=== PATIENT | female | born 1990 | race Caucasian/White ===

== ENCOUNTER 2017-09-11 10:42 | Emergency (ER) | payer OTHER, SELFPAY ==
[2017-09-11 11:03] VITALS: BP 111/75; PULSE 96; RESP 20; TEMP 37.2; O2SAT 20; BMI 25.0
[2017-09-11 11:13] VITALS: BP 126/73; PULSE 80; RESP 19; O2SAT 99
--- NOTE | 2017-09-11 11:14 | PC.NURSE ---
PT TO BE SEEN IN ER PER DOCTOR OF NURSE ANESTHESIA, REPORT TO November
[2017-09-11 11:24] LABS: Apearance,Urine Clear (Clear); Color,Urine Yellow (Yellow); Specific Gravity, Urine >= 1.030 (1.005-1.030)
[2017-09-11 11:25] LABS: Bilirubin,Urine Negative (Negative); Blood, Urine Trace (Negative); Glucose,Urine (UA) Negative (Negative); Ketones,Urine Negative (Negative); Protein,Urine Negative (Negative); UTC Leukocyte Esterase,Urine 1+ (Negative); UTC Nitrate,Urine Positive (Negative); Urobilinogen,Urine 0.2 EU/dl (0.2)
[2017-09-11 12:01] VITALS: BP 120/50; PULSE 73; RESP 14; TEMP 37.1; O2SAT 100; BMI 25.0
--- NOTE | 2017-09-11 12:07 | XR_ITS ---
XR chest 2V HISTORY: Chest pain ITS.REASON: pain ORDERING PHYSICIAN: Marcin Lepe MD PATIENT AGE: 27 years COMPARISON: None available FINDINGS: The cardiomediastinal silhouette and pulmonary vascularity are within normal limits. The lungs are clear without infiltrates, suspicious nodules, or pleural effusions. No acute bony abnormalities. IMPRESSION: Negative chest, no acute finding
--- NOTE | 2017-09-11 12:13 | HMH.EDGENADL ---
ED Disposition Clinical Impression: Abdominal pain, Mesenteric adenitis Disposition: Home, Self-Care Condition on Discharge: Good Instructions: Acute Abdominal Pain Referrals: Kinga Dudley APRN [Primary Care Provider] - - Critical Care Critical Care Time: No Attestation: On 09/11/17, the high probability of a clinically significant, sudden or life threatening deterioration of the following system(s) required my full and direct attention, intervention and personal management. The time I documented below is in addition to time spent performing reported procedures but includes the following listed in this critical care notation. Medical Decision Making - Medical Records MR Comment: chest x-ray per my read as no infiltrate no acute disease. Scan read by radiologist: IMPRESSION: No acute abdominal or pelvic findings. Small mesenteric lymph nodes present. These are nonspecific but could be seen. with mesenteric adenitis Vital Signs: 09/11/17 11:03 09/11/17 11:13 09/11/17 12:01 Temperature 98.9 F 98.7 F Temperature Source Temporal Artery Scan Oral Pulse Rate [Right] 96 H 80 73 Respiratory Rate 20 19 14 Blood Pressure [Right Arm] 111/75 126/73 120/50 Blood Pressure Mean [Right Arm] 87 90 73 Blood Pressure Source [Right Arm] Automatic Cuff Automatic Cuff Automatic Cuff Blood Pressure Position [Right Arm] Sitting Sitting Sitting 02 Sat by Pulse Oximetry 20 L 99 100 Oxygen Delivery Method Room Air Room Air Room Air - Lab Data Lab Results 09/11/17 11:00: WBC 9.8, RBC 5.13, Hgb 14.9, Hct 43.7, MCV 85.2, MCH 28.9, MCHC 34.0, RDW 12.5, Plt Count 177, MPV 8.8, Neut % (Auto) 72.4, Lymph % (Auto) 20.9, [place] % (Auto) 5.3, Eos % (Auto) 1.0, Baso % (Auto) 0.4, Neut # (Auto) 7.1, Lymph # (Auto) 2.1, [place] # (Auto) 0.5, Eos # (Auto) 0.1, Baso # (Auto) 0.0 09/11/17 11:00: Sodium 140, Potassium 3.6, Chloride 102, Carbon Dioxide 28, Anion Gap 13.6, BUN 7, Creatinine 0.84, Estimated Creat Clear 117, Estimated GFR 83, Est GFR ( Amer) 100, Glucose 85, Calcium 9.0, Total Bilirubin 0.5, AST 16, ALT 25, Alkaline Phosphatase 54, Total Protein 8.1, Albumin 4.2, Globulin 3.9 H, Albumin/Globulin Ratio 1.1, Lipase 95 09/11/17 11:00: Urine HCG, Qual Negative 09/11/17 11:22: Urine Color Yellow, Urine Appearance Clear, Urine pH 6.0, Ur Specific [place] >= 1.030, Urine Protein Negative, Urine Glucose (UA) Negative, Urine Ketones Negative, Urine Blood Trace, Urine Nitrate Positive A, Urine Bilirubin Negative, Urine Urobilinogen 0.2, Ur Leukocyte Esterase 1+ A Result diagrams: 09/11/17 11:00 09/11/17 11:00 Orders (Tests/Meds): ED MEDICATIONS Discontinued Medications Generic Name Dose Route Start Last Admin Trade Name Freq PRN Reason Stop Dose Admin Morphine Sulfate 4 mg 09/11/17 12:12 Morphine 4mg/Ml Syringe IV 09/11/17 12:13 ONCE ONE Ondansetron HCl 4 mg 09/11/17 12:12 Zofran 4mg/2ml Vial IV 09/11/17 12:13 ONCE ONE ORDERS Category Date Time Status XR chest 2V Stat Exams 09/11/17 12:07 Taken - Edwin Inquiry Pt receiving controlled substance: No General Adult HPI - General Chief complaint: Abdominal Pain Stated complaint: pain in upper abdominal area and pain in back Mode of Arrival: Ambulatory Limitations: No Limitations Description of Symptoms (Recalled from ER Triage Doc. by RN): Pt c/o abd pain since last night. Also c/o nausea/vomiting - History of Present Illness HPI narrative: Patient complains of onset last night of abdominal pain epigastric area that is since spread throughout her abdomen. She has not had a period in several months but that her tests have been negative. Having nausea vomiting crampy abdominal pain moderate severity it radiate through to her back. no Complaint of fevers or chills - Related Data Previous Rx's Medication Instructions Recorded Omeprazole Magnesium [Prilosec 10 mg PO DAILY #10 packet 09/11/17 10mg (gra
[2017-09-11 12:50] LABS: Basophils % 0.4 % (0.1-2.0); Eosinophils # 0.1 K/mm3 (0.0-0.4); Hematocrit 43.7 % (37.0-47.0); Hemoglobin 14.9 g/dL (12.2-16.2); Lymphocytes # 2.1 K/mm3 (0.7-4.5); Lymphocytes % 20.9 K/mm3 (10-50); Mean Corpuscular Hemoglobin 28.9 pg (27.0-31.2); Mean Corpuscular Volume 85.2 fl (81-99); Mean Platelet Volume 8.8 fl (7.4-10.4); Monocytes # 0.5 K/mm3 (0.1-1.0); Monocytes % 5.3 % (1.7-9.3); Neutrophils # 7.1 K/mm3 (1.8-7.8); Neutrophils % 72.4 % (37.0-80.0); Platelet Count 177 K/mm3 (142-424); Red Blood Count 5.13 M/mm3 (4.20-5.40); Red Cell Distribution Width 12.5 % (11.5-17.5); White Blood Count 9.8 K/mm3 (4.8-10.8)
[2017-09-11 13:06] LABS: Alanine Aminotransferase 25 U/L (12-78); Albumin Level 4.2 gm/dL (3.4-5.0); Albumin/Globulin Ratio 1.1 (1.1-1.8); Alkaline Phosphatase 54 U/L (46-116); Anion Gap 13.6 mEq/L (5-15); Aspartate Amino Transferase 16 U/L (15-37); Bilirubin,Total 0.5 mg/dL (0.2-1.0); Blood Urea Nitrogen 7 mg/dL (7-18); Carbon Dioxide 28 mmol/L (21.0-32.0); Chloride 102 mmol/L (98-107); Creatinine Clearance Estimated 117 mL/min (0-300); Creatinine,Serum 0.84 mg/dL (0.55-1.02); Estimated Glomerular Filt Rate 83 ml/min (>60); GFR (African American) 100 ML/MIN (>60); Globulin 3.9 gm/dl (1.3-3.2); Glucose 85 mg/dL (74-106); Lipase 95 u/L (73-393); Potassium 3.6 mmoL/L (3.5-5.1); Sodium 140 mmol/L (136-145); Total Protein,Serum 8.1 gm/dL (6.4-8.2)
[2017-09-11 13:07] LABS: Urine Pregnancy, HCG Qual. Negative (Negative)
--- NOTE | 2017-09-11 13:08 | CT_ITS ---
CT abdomen pelvis wo con CLINICAL INDICATION: Midepigastric abdominal pain ITS.REASON: ABD PAIN ORDERING PHYSICIAN: Marcin Lepe MD PATIENT AGE: 27 years COMPARISON: 07/21/2012 TECHNIQUE: Axial images obtained with sagittal and coronal reformats. PROCEDURE: Oral Contrast: None IV Contrast: None . FINDINGS: Lung bases are clear. The liver, spleen, adrenal glands, pancreas, and kidneys have an unremarkable unenhanced CT appearance. There has been a prior cholecystectomy without ductal dilatation. Unremarkable appendix. No evidence of diverticulitis, intestinal obstruction, or free air. No acute bony anomalies. There are few scattered small mesenteric lymph nodes which are nonspecific IMPRESSION: No acute abdominal or pelvic findings Small mesenteric lymph nodes present. These are nonspecific but could be seen with mesenteric adenitis
[2017-09-11 14:24] VITALS: BP 112/70; PULSE 60; RESP 14; TEMP 36.7; O2SAT 98
== END 2017-09-11 14:25 | disposition home or self-care (01) ==
LOC: UTC 11:02 → ER 11:16
PROVIDERS: Emergency Provider Emergency Medicine; Family Provider Nurse Practitioner Family; PCP Nurse Practitioner Family
DX: R10.9 Unspecified abdominal pain (principal); I88.0 Nonspecific mesenteric lymphadenitis; Z88.2 Allergy status to sulfonamides
CPT/HCPCS: 71046; 74176; 80053; 81003; 81025; 83690; 85025; 99284

== ENCOUNTER → 2017-12-11 12:49 | Outpatient (CLI) | payer OTHER, SELFPAY ==
[2017-12-11 13:36] LABS: Amphetamine/Metha Screen,Urine Negative ng/mL (<1000); Barbiturates Screen,Urine Negative ng/mL (<200); Benzodiazepines Screen,Urine Negative ng/mL (200); Cannabinoid Screen,Urine Negative ng/mL (<50); Cocaine Screen,Urine Negative ng/g (<300); Methadone Screen,Urine Negative ng/mL (<300); Opiate Screen,Urine Negative ng/mL (<300); Phencyclidine Screen,Urine Negative ng/mL (<25)
[2017-12-11 14:42] LABS: Thyroid Stimulating Hormone 2.84 uIU/ml (0.358-3.740)
== END ==
PROVIDERS: Visit Provider Nurse Practitioner Family
DX: E03.8 Other specified hypothyroidism (principal); F19.90 Other psychoactive substance use, unspecified, uncomplicated
CPT/HCPCS: 36415; 80305; 84439; 84443

== ENCOUNTER → 2018-10-06 15:46 | Outpatient (CLI) | payer OTHER, SELFPAY ==
[2018-10-08 09:18] LABS: Hep A Ab, IgM Negative (Negative); Hepatitis B Core Antibody IgM Negative (Negative); Hepatitis B Surface Antigen Negative (Negative)
[2018-10-08 10:54] LABS: HIV Screen 4th Generation wRfx Non Reactive (Non Reactive); HSV 1 IgG, Type Spec <0.91 index (0.00-0.90); HSV 2 IgG, Type Spec <0.91 index (0.00-0.90); Hepatitis C Antibody <0.1 s/co ratio (0.0-0.9); Rapid Plasma Reagin Ab Titer Non Reactive (NonRea<1:1)
== END ==
PROVIDERS: Visit Provider Nurse Practitioner Obstetrics & Gynecology
DX: Z72.51 High risk heterosexual behavior (principal)
CPT/HCPCS: 36415; 80074; 86592; 86695; 86703; 86790; G0432

== ENCOUNTER → 2019-01-31 16:57 | Outpatient (CLI) | payer OTHER, SELFPAY ==
[2019-02-03 07:47] LABS: Neisseria gonorrhoeae, NAA Negative (Negative)
== END ==
PROVIDERS: Visit Provider Nurse Practitioner Obstetrics & Gynecology
DX: Z72.51 High risk heterosexual behavior (principal)
CPT/HCPCS: 87491; 87591

== ENCOUNTER → 2019-03-02 14:33 | Outpatient (CLI) | payer OTHER, SELFPAY ==
[2019-03-04 10:32] LABS: HSV 2 IgG, Type Spec <0.91 index (0.00-0.90)
== END ==
PROVIDERS: Visit Provider Nurse Practitioner Obstetrics & Gynecology
DX: Z72.51 High risk heterosexual behavior (principal)
CPT/HCPCS: 36415; 86695; 86696; 86790

== ENCOUNTER → 2019-09-14 17:16 | Outpatient (CLI) | payer MEDICAID, SELFPAY | PROVIDERS: Visit Provider Nurse Practitioner Obstetrics & Gynecology | DX: Z34.90 Encounter for supervision of normal pregnancy, unspecified, unspecified trimester (principal) | CPT/HCPCS: 87086; 87088; 87186 ==

== ENCOUNTER → 2019-09-22 13:38 | Outpatient (CLI) | payer MEDICAID, SELFPAY ==
--- NOTE | 2019-09-22 13:39 | US_ITS ---
PROCEDURE: US OB <= 14 WEEKS FETUS CLINICAL INDICATION: uncertain dates COMPARISON: US TRANSVAGINAL from 08/07/2019 FINDINGS: An intrauterine gestational sac is present with a pole with a crown-rump length of 7.59cm correlating to gestational age of 13weeks 6days. heart tones are present with an FHR of 163bpm. The placenta is forming posteriorly. Cervix was closed IMPRESSION: Live IUP at 13 weeks 6 days. Estimated due date by Ultrasound is 03/23/2020 Dictated by: Bello Hendrickson MD 09/22/2019 15:24 Electronically signed by Bello Hendrickson MD in [place] 09/22/2019 15:24
== END ==
PROVIDERS: PCP Physician Assistant; Visit Provider Nurse Practitioner Obstetrics & Gynecology
DX: Z34.90 Encounter for supervision of normal pregnancy, unspecified, unspecified trimester (principal)
CPT/HCPCS: 76801

== ENCOUNTER → 2019-10-12 14:23 | Outpatient (CLI) | payer MEDICAID, SELFPAY ==
[2019-10-12 14:54] LABS: Basophils % 0.5 % (0.1-2.0); Eosinophils # 0.1 K/mm3 (0.0-0.4); Eosinophils % 1.2 % (0.1-12.0); Hematocrit 36.4 % (37.0-47.0); Hemoglobin 12.7 g/dL (12.2-16.2); Lymphocytes # 1.6 K/mm3 (0.7-4.5); Lymphocytes % 19.2 % (10-50); Mean Corpuscular Hemoglobin 29.9 pg (27.0-31.2); Mean Corpuscular Volume 85.4 fl (81-99); Mean Platelet Volume 8.5 fl (7.4-10.4); Monocytes # 0.3 K/mm3 (0.1-1.0); Monocytes % 3.9 % (1.7-9.3); Neutrophils % 75.2 % (37.0-80.0); Platelet Count 167 K/mm3 (142-424); Red Blood Count 4.26 M/mm3 (4.20-5.40); Red Cell Distribution Width 13.7 % (11.5-17.5)
[2019-10-14 10:15] LABS: HIV Screen 4th Generation wRfx Non Reactive (Non Reactive); Hepatitis B Surface Antigen Negative (Negative); Hepatitis C Antibody <0.1 s/co ratio (0.0-0.9); Rapid Plasma Reagin Ab Titer Non Reactive (NonRea<1:1); Rubella Antibodies, IgG <0.90 index (Immune >0.99)
[2019-10-15 01:07] LABS: AFP Value 28.5 ng/mL (.); DIA MoM 0.99 (.); DIA Value 148.17 pg/mL (.); DSR (Second Trimester) 1 IN 9695 (.); Gest. Age on Collection Date 16.7 WEEKS (.); Maternal Age At EDD 27.8 yr (.); OSBR Risk 1 IN 10000 (.); Results Report (.); hCG MoM 0.56 (.); hCG Value 18008 mIU/mL (.); uE3 Value 0.79 ng/mL (.)
[2019-10-15 08:31] LABS: Gestat. Age Based On EDD (.)
== END ==
PROVIDERS: Visit Provider Nurse Practitioner Obstetrics & Gynecology
DX: Z34.90 Encounter for supervision of normal pregnancy, unspecified, unspecified trimester (principal)
CPT/HCPCS: 36415; 82106; 85025; 86592; 86703; 86762; 86850; 87340; 87380; G0432

== ENCOUNTER → 2019-11-09 15:02 | Outpatient (CLI) | payer MEDICAID, SELFPAY ==
--- NOTE | 2019-11-09 15:05 | US_ITS ---
PROCEDURE: US OB /MATERNAL DETAIL CLINICAL INDICATION: 20 wk. The 20 week anatomy exam COMPARISON: US OB <= 14 WEEKS FETUS from 09/22/2019 FINDINGS: There is a single live fetus which is in breech presentation. heart and body motion noted. There is average appearing amount of amniotic fluid. Placenta is posterior. The cervix is closed and measures 4 cm transabdominal. Complete survey performed and was unremarkable on the submitted images as in PACS. No discrete anomalies identified on survey imaging by technologist. Active fetus. Three-vessel cord with satisfactory umbilical cord insertion. 4- chamber heart noted. Survey of brain & ventricles Unremarkable. Face and neck survey unremarkable. Diaphragm and chest views unremarkable. Abdomen: Both kidneys noted and unremarkable. Stomach noted and satisfactory. Spine: Survey of the spine satisfactory with no anomalies identified nor imaged. Both arms and legs noted. Amniotic Fluid: Adequate. Maternal adnexa: No significant findings. Measurements: Average ultrasound age 20weeks 1day. Gestational Age 20 weeks 5 days Estimated due date by ultrasound age 20 percent. Estimated weight 337g BPD = 20weeks OFD = 20 weeks 2 days HC = 19weeks 3days AC = 20weeks FL = 20weeks 5days Growth Percentile= 21Percent% Heart Rate = 143bpm Cerebellum = 20weeks Humerus = HC/AC is 1.14 CI is 0.78 FL/BPD is 0.74 FL/AC is 0.23 IMPRESSION: Live IUP at 20 weeks 1 day in breech presentation. All parameters correlate with no obvious anomalies. Please see above for detail Dictated by: Bello Hendrickson MD 11/09/2019 16:21 Electronically signed by Bello Hendrickson MD in [place] 11/09/2019 16:21
== END ==
PROVIDERS: PCP Physician Assistant; Visit Provider Nurse Practitioner Obstetrics & Gynecology
DX: Z34.90 Encounter for supervision of normal pregnancy, unspecified, unspecified trimester (principal)
CPT/HCPCS: 76811

== ENCOUNTER → 2019-11-14 16:01 | Outpatient (CLI) | payer MEDICAID, SELFPAY | PROVIDERS: Visit Provider Nurse Practitioner Obstetrics & Gynecology | DX: O23.40 Unspecified infection of urinary tract in pregnancy, unspecified trimester (principal); Z3A.21 21 weeks gestation of pregnancy | CPT/HCPCS: 87086; 87088; 87186 ==

== ENCOUNTER → 2019-12-06 09:20 | Outpatient (CLI) | payer MEDICAID, SELFPAY ==
--- NOTE | 2019-12-06 09:21 | CA_ITS ---
APPROVED REPORT Bilateral Lower Extremity Venous Study for DVT. 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 Vein Imaging CFV (R): compressive, spontaneous, phasic, augmentation SFJ (R): compressive, spontaneous, phasic, augmentation FEM (R): compressive, spontaneous, phasic, augmentation POP (R): compressive, spontaneous, phasic, augmentation DFV (R): compressive, spontaneous, phasic, augmentation PTV (R): compressive, spontaneous, phasic, augmentation GSV (R): compressive, spontaneous, phasic, augmentation SSV (R): Not Visualized Peroneals (R):compressive, spontaneous, phasic, augmentation GAS (R): compressive, spontaneous, phasic, augmentation CFV (L): compressive, spontaneous, phasic, augmentation SFJ (L): compressive, spontaneous, phasic, augmentation FEM (L): compressive, spontaneous, phasic, augmentation POP (L): compressive, spontaneous, phasic, augmentation DFV (L): compressive, spontaneous, phasic, augmentation PTV (L): compressive, spontaneous, phasic, augmentation GSV (L): compressive, spontaneous, phasic, augmentation SSV (L): Not Visualized Peroneals (L):compressive, spontaneous, phasic, augmentation GAS (L): compressive, spontaneous, phasic, augmentation Findings Negative for DVT/SVT bilateral LE venous doppler, fully compressible. No reflux Conclusion No evidence of DVT or superficial thrombophlebitis in the veins scanned of the right lower extremity. No evidence of DVT or superficial thrombophlebitis in the veins scanned of the left lower extremity. Electronically signed by : Bello Hendrickson MD 12/06/2019 19:05:39
== END ==
PROVIDERS: PCP Physician Assistant; Visit Provider Nurse Practitioner Obstetrics & Gynecology
DX: Z34.90 Encounter for supervision of normal pregnancy, unspecified, unspecified trimester (principal); Z86.718 Personal history of other venous thrombosis and embolism
CPT/HCPCS: 93970

== ENCOUNTER → 2019-12-16 09:35 | Outpatient (CLI) | payer MEDICAID, SELFPAY ==
[2019-12-16 09:49] LABS: Basophils % 0.3 % (0.1-2.0); Eosinophils # 0.1 K/mm3 (0.0-0.4); Eosinophils % 1.1 % (0.1-12.0); Hematocrit 35.7 % (37.0-47.0); Hemoglobin 12.5 g/dL (12.2-16.2); Lymphocytes # 1.8 K/mm3 (0.7-4.5); Lymphocytes % 17.5 % (10-50); Mean Corpuscular Volume 85.8 fl (81-99); Mean Platelet Volume 8.8 fl (7.4-10.4); Monocytes # 0.4 K/mm3 (0.1-1.0); Monocytes % 3.8 % (1.7-9.3); Neutrophils # 8.1 K/mm3 (1.8-7.8); Neutrophils % 77.3 % (37.0-80.0); Platelet Count 184 K/mm3 (142-424); Red Blood Count 4.16 M/mm3 (4.20-5.40); Red Cell Distribution Width 13.2 % (11.5-17.5); White Blood Count 10.5 K/mm3 (4.8-10.8)
== END ==
PROVIDERS: Visit Provider Nurse Practitioner Obstetrics & Gynecology
DX: Z34.90 Encounter for supervision of normal pregnancy, unspecified, unspecified trimester (principal)
CPT/HCPCS: 36415; 85025

== ENCOUNTER 2020-01-06 00:14 | Outpatient (CLI) | payer MEDICAID, SELFPAY ==
[2020-01-06 00:25] VITALS: BMI 32.3
[2020-01-06 00:38] VITALS: BP 103/61; PULSE 84; RESP 18; TEMP 37.1; O2SAT 97; BMI 32.3
[2020-01-06 01:04] LABS: Microscopic, Urine URINE MICROSCOPIC (MICROSCOPIC)
[2020-01-06 01:06] LABS: Appearance,Urine CLEAR (Clear); Bilirubin,Urine Negative (Negative); Blood, Urine Negative (Negative); Color,Urine YELLOW (Yellow); Glucose,Urine (UA) Negative (Negative); Ketones,Urine Negative (Negative); Leukocyte Esterase,Urine Negative (Negative); Nitrate,Urine Negative (Negative); Protein,Urine Negative (Negative); Urobilinogen,Urine 0.2 EU/dl (0.2)
[2020-01-06 01:21] LABS: Barbiturates Screen,Urine Negative ng/ml (<200); Benzodiazepines Screen,Urine Negative ng/ml (<200)
[2020-01-06 01:22] LABS: Amphetamine/Metha Screen,Urine Negative ng/ml (<1000)
[2020-01-06 01:23] LABS: Cannabinoid Screen,Urine Negative ng/ml (<50); Methadone Screen,Urine Negative ng/ml (<300)
[2020-01-06 01:24] LABS: Cocaine Screen,Urine Negative ng/ml (<300)
[2020-01-06 01:25] LABS: Opiate Screen,Urine Negative ng/ml (<300); Phencyclidine Screen,Urine Negative ng/ml (<25)
[2020-01-06 01:44] LABS: Bacteria,Urine 1+ /lpf; Squamous Epithelial Cell,Urine TNTC #/hpf (0-5)
== END 2020-01-06 01:40 | disposition home or self-care (01) ==
LOC: OBOUT 00:16 → OB 00:16
PROVIDERS: PCP Physician Assistant; Referring Provider Nurse Practitioner Obstetrics & Gynecology; Visit Provider Obstetrics & Gynecology
DX: O47.03 False labor before 37 completed weeks of gestation, third trimester (principal); Z3A.29 29 weeks gestation of pregnancy
CPT/HCPCS: 59025; 80305; 81001; G0463

== ENCOUNTER 2020-01-06 22:05 | Outpatient (CLI) | payer MEDICAID, SELFPAY ==
[2020-01-06 22:21] VITALS: BP 114/66; PULSE 76; RESP 18; TEMP 36.8; O2SAT 97; BMI 32.3
[2020-01-06 23:22] LABS: Fetal Membrane Rupture (Rapid) Negative (Negative)
[2020-01-06 23:47] LABS: Fetal Fibronectin (Rapid) Negative (Negative)
== END 2020-01-07 00:08 | disposition home or self-care (01) ==
LOC: OBOUT 22:06 → OB 22:08
PROVIDERS: PCP Physician Assistant; Visit Provider Nurse Practitioner Obstetrics & Gynecology
DX: O47.03 False labor before 37 completed weeks of gestation, third trimester (principal); Z3A.29 29 weeks gestation of pregnancy
CPT/HCPCS: 59025; 82731; 84112; 96365; 96372; G0463

== ENCOUNTER 2020-01-07 10:46 | Outpatient (CLI) | payer MEDICAID, SELFPAY ==
[2020-01-07 10:53] VITALS: BP 121/62; PULSE 67; RESP 18; TEMP 36.9; O2SAT 95; BMI 31.9
[2020-01-07 11:22] LABS: Microscopic, Urine URINE MICROSCOPIC (MICROSCOPIC)
[2020-01-07 11:26] LABS: Appearance,Urine CLEAR (Clear); Bilirubin,Urine Negative (Negative); Blood, Urine Negative (Negative); Color,Urine YELLOW (Yellow); Glucose,Urine (UA) Negative (Negative); Ketones,Urine Negative (Negative); Leukocyte Esterase,Urine Negative (Negative); Nitrate,Urine Negative (Negative); PH,Urine 6.5 (5.0-8.5); Protein,Urine Negative (Negative); Urobilinogen,Urine 0.2 EU/dl (0.2)
[2020-01-07 11:39] LABS: Barbiturates Screen,Urine Negative ng/ml (<200); Benzodiazepines Screen,Urine Negative ng/ml (<200)
[2020-01-07 11:40] LABS: Amphetamine/Metha Screen,Urine Negative ng/ml (<1000); Methadone Screen,Urine Negative ng/ml (<300)
[2020-01-07 11:41] LABS: Cannabinoid Screen,Urine Negative ng/ml (<50)
[2020-01-07 11:42] LABS: Cocaine Screen,Urine Negative ng/ml (<300); Opiate Screen,Urine Negative ng/ml (<300)
[2020-01-07 11:43] LABS: Phencyclidine Screen,Urine Negative ng/ml (<25)
[2020-01-07 11:56] LABS: Amorphous Sediment,Urine 1+ /lpf; WBC,Urine Occasional #/hpf (0-3)
== END 2020-01-07 13:00 | disposition home or self-care (01) ==
LOC: OBOUT 10:49 → OB 10:52
PROVIDERS: PCP Physician Assistant; Visit Provider Nurse Practitioner Obstetrics & Gynecology
DX: O26.893 Other specified pregnancy related conditions, third trimester (principal); Z3A.29 29 weeks gestation of pregnancy
CPT/HCPCS: 59025; 80305; 81001; 96365; 96372; G0463

== ENCOUNTER → 2020-01-30 15:37 | Outpatient (CLI) | payer MEDICAID, SELFPAY ==
[2020-01-30 16:36] LABS: Fetal Fibronectin (Rapid) Negative (Negative)
== END ==
PROVIDERS: Visit Provider Nurse Practitioner Obstetrics & Gynecology
DX: Z34.90 Encounter for supervision of normal pregnancy, unspecified, unspecified trimester (principal)
CPT/HCPCS: 82731

== ENCOUNTER 2020-01-31 17:49 | Outpatient (CLI) | payer MEDICAID, SELFPAY ==
[2020-01-31 18:04] VITALS: BMI 32.4
[2020-01-31 18:15] LABS: Microscopic, Urine URINE MICROSCOPIC (MICROSCOPIC)
[2020-01-31 18:21] VITALS: BP 113/61; PULSE 105; RESP 18; TEMP 36.8; O2SAT 98; BMI 32.4
[2020-01-31 18:53] LABS: Amphetamine/Metha Screen,Urine Negative ng/ml (<1000); Barbiturates Screen,Urine Negative ng/ml (<200)
[2020-01-31 18:54] LABS: Bacteria,Urine Trace /lpf; Benzodiazepines Screen,Urine Negative ng/ml (<200); WBC,Urine Occasional #/hpf (0-3)
[2020-01-31 18:55] LABS: Cannabinoid Screen,Urine Negative ng/ml (<50); Cocaine Screen,Urine Negative ng/ml (<300)
[2020-01-31 18:56] LABS: Methadone Screen,Urine Negative ng/ml (<300)
[2020-01-31 18:57] LABS: Appearance,Urine CLEAR (Clear); Bilirubin,Urine Negative (Negative); Blood, Urine 2+ (Negative); Color,Urine YELLOW (Yellow); Glucose,Urine (UA) Negative (Negative); Ketones,Urine Negative (Negative); Leukocyte Esterase,Urine 1+ (Negative); Nitrate,Urine Negative (Negative); Opiate Screen,Urine Negative ng/ml (<300); Phencyclidine Screen,Urine Negative ng/ml (<25); Protein,Urine Negative (Negative); Specific Gravity, Urine 1.025 (1.005-1.030); Urobilinogen,Urine 0.2 EU/dl (0.2)
== END 2020-01-31 20:06 | disposition home or self-care (01) ==
LOC: OBOUT 17:51 → OB 17:52
PROVIDERS: PCP Nurse Practitioner Obstetrics & Gynecology; Visit Provider Obstetrics & Gynecology
DX: O47.03 False labor before 37 completed weeks of gestation, third trimester (principal); O26.853 Spotting complicating pregnancy, third trimester; Z3A.32 32 weeks gestation of pregnancy
CPT/HCPCS: 59025; 80305; 81001; 87086; 96365; G0463

== ENCOUNTER 2020-02-04 17:39 | Outpatient (CLI) | payer MEDICAID, SELFPAY ==
[2020-02-04 17:57] VITALS: BMI 33.1
[2020-02-04 18:14] LABS: Microscopic, Urine URINE MICROSCOPIC (MICROSCOPIC)
[2020-02-04 18:15] VITALS: BP 112/68; PULSE 87; RESP 19; TEMP 36.9; O2SAT 98
[2020-02-04 18:17] LABS: Appearance,Urine SL CLOUDY (Clear); Bilirubin,Urine Negative (Negative); Blood, Urine Negative (Negative); Color,Urine YELLOW (Yellow); Glucose,Urine (UA) Negative (Negative); Ketones,Urine Negative (Negative); Leukocyte Esterase,Urine 1+ (Negative); Nitrate,Urine Negative (Negative); Protein,Urine TRACE (Negative); Specific Gravity, Urine 1.025 (1.005-1.030); Urobilinogen,Urine 0.2 EU/dl (0.2)
[2020-02-04 18:20] LABS: Amorphous Sediment,Urine Trace /lpf; Squamous Epithelial Cell,Urine 20-50 #/hpf (0-5)
[2020-02-04 18:27] LABS: Barbiturates Screen,Urine Negative ng/ml (<200)
[2020-02-04 18:28] LABS: Amphetamine/Metha Screen,Urine Negative ng/ml (<1000); Benzodiazepines Screen,Urine Negative ng/ml (<200)
[2020-02-04 18:29] VITALS: BMI 33.1
[2020-02-04 18:29] LABS: Cannabinoid Screen,Urine Negative ng/ml (<50)
[2020-02-04 18:30] LABS: Cocaine Screen,Urine Negative ng/ml (<300); Methadone Screen,Urine Negative ng/ml (<300)
[2020-02-04 18:31] LABS: Opiate Screen,Urine Negative ng/ml (<300)
[2020-02-04 18:32] LABS: Phencyclidine Screen,Urine Negative ng/ml (<25)
== END 2020-02-04 19:20 | disposition home or self-care (01) ==
LOC: OBOUT 17:40 → OB 17:40
PROVIDERS: Visit Provider Obstetrics & Gynecology
DX: O26.893 Other specified pregnancy related conditions, third trimester (principal); Z3A.33 33 weeks gestation of pregnancy; R42 Dizziness and giddiness
CPT/HCPCS: 59025; 80305; 81001; 87086; 96372; G0463

== ENCOUNTER 2020-02-12 18:13 | Outpatient (CLI) | payer MEDICAID, SELFPAY ==
[2020-02-12 18:34] VITALS: BP 116/64; PULSE 90; RESP 18; TEMP 36.7; O2SAT 100; BMI 33.1
[2020-02-12 18:43] LABS: Microscopic, Urine URINE MICROSCOPIC (MICROSCOPIC)
[2020-02-12 18:59] LABS: Appearance,Urine SL CLOUDY (Clear); Bilirubin,Urine Negative (Negative); Blood, Urine Negative (Negative); Color,Urine YELLOW (Yellow); Glucose,Urine (UA) Negative (Negative); Ketones,Urine Negative (Negative); Leukocyte Esterase,Urine TRACE (Negative); Nitrate,Urine Negative (Negative); Protein,Urine Negative (Negative); Specific Gravity, Urine 1.025 (1.005-1.030); Urobilinogen,Urine 0.2 EU/dl (0.2)
[2020-02-12 19:01] LABS: Squamous Epithelial Cell,Urine 20-50 #/hpf (0-5)
[2020-02-12 19:05] LABS: Barbiturates Screen,Urine Negative ng/ml (<200); Benzodiazepines Screen,Urine Negative ng/ml (<200)
[2020-02-12 19:06] LABS: Amphetamine/Metha Screen,Urine Negative ng/ml (<1000)
[2020-02-12 19:07] LABS: Cannabinoid Screen,Urine Negative ng/ml (<50); Cocaine Screen,Urine Negative ng/ml (<300)
[2020-02-12 19:08] LABS: Methadone Screen,Urine Negative ng/ml (<300)
[2020-02-12 19:09] LABS: Opiate Screen,Urine Negative ng/ml (<300); Phencyclidine Screen,Urine Negative ng/ml (<25)
== END 2020-02-12 19:45 | disposition home or self-care (01) ==
LOC: OBOUT 18:14 → OB 18:17
PROVIDERS: Obstetrics & Gynecology; PCP Physician Assistant; Visit Provider Nurse Practitioner Obstetrics & Gynecology
DX: O47.03 False labor before 37 completed weeks of gestation, third trimester (principal); M54.5 Low back pain; Z3A.34 34 weeks gestation of pregnancy
CPT/HCPCS: 59025; 80305; 81001; 96372

== ENCOUNTER → 2020-02-15 16:45 | Outpatient (CLI) | payer MEDICAID, SELFPAY ==
[2020-02-15 16:58] LABS: Basophils % 0.3 % (0.1-2.0); Eosinophils # 0.1 K/mm3 (0.0-0.4); Eosinophils % 0.8 % (0.1-12.0); Hematocrit 37.2 % (37.0-47.0); Hemoglobin 12.8 g/dL (12.2-16.2); Lymphocytes # 1.7 K/mm3 (0.7-4.5); Lymphocytes % 14.4 % (10-50); Mean Corpuscular HGB Conc 34.5 g/dL (31.8-35.4); Mean Corpuscular Hemoglobin 30.2 pg (27.0-31.2); Mean Corpuscular Volume 87.4 fl (81-99); Mean Platelet Volume 8.5 fl (7.4-10.4); Monocytes # 0.4 K/mm3 (0.1-1.0); Monocytes % 3.5 % (1.7-9.3); Neutrophils # 9.5 K/mm3 (1.8-7.8); Neutrophils % 80.9 % (37.0-80.0); Platelet Count 170 K/mm3 (142-424); Red Blood Count 4.26 M/mm3 (4.20-5.40); Red Cell Distribution Width 13.9 % (11.5-17.5); White Blood Count 11.7 K/mm3 (4.8-10.8)
== END ==
PROVIDERS: Visit Provider Nurse Practitioner Obstetrics & Gynecology
DX: Z34.90 Encounter for supervision of normal pregnancy, unspecified, unspecified trimester (principal); Z3A.34 34 weeks gestation of pregnancy
CPT/HCPCS: 36415; 85025

== ENCOUNTER 2020-02-26 10:00 | Outpatient (CLI) | payer MEDICAID, SELFPAY ==
[2020-02-26 10:11] VITALS: BMI 33.7
[2020-02-26 10:21] VITALS: BP 114/70; PULSE 87; RESP 17; TEMP 36.9; O2SAT 97; BMI 33.7
--- NOTE | 2020-02-26 10:29 | US_ITS ---
PROCEDURE: US OB BIOPHYSICAL PROFILE CLINICAL INDICATION: Vaginal bleeding Thirty-six week gestation, vaginal bleeding TECHNIQUE: FINDINGS: There is a single live fetus which is in cephalic presentation. heart body motion noted within FHR 165 beats per minute. The placenta is posterior and grade 1. No previa or abruption. Average ultrasound age is 34 weeks 3 days. BPD 34 weeks 1 day, HC 34 weeks 2 days, AC 34 weeks 3 days, FL 34 weeks 4 days. All parameters correlate. SD ratio is 2.8 with a resistive index of 0.64 Cervix is closed at 3 cm. [place] is normal at 15 cm. Biophysical profile is 8 of 8 IMPRESSION: Live IUP at 34 weeks 3 days as described above Dictated by: Bello Hendrickson MD 02/26/2020 12:52 Electronically signed by Bello Hendrickson MD in [place] 02/26/2020 12:52
[2020-02-26 12:15] LABS: Microscopic, Urine URINE MICROSCOPIC (MICROSCOPIC)
[2020-02-26 12:17] LABS: Appearance,Urine CLEAR (Clear); Bilirubin,Urine Negative (Negative); Blood, Urine 2+ (Negative); Color,Urine YELLOW (Yellow); Glucose,Urine (UA) Negative (Negative); Ketones,Urine Negative (Negative); Leukocyte Esterase,Urine 2+ (Negative); Nitrate,Urine Negative (Negative); Protein,Urine Negative (Negative); Specific Gravity, Urine 1.025 (1.005-1.030); Urobilinogen,Urine 0.2 EU/dl (0.2)
[2020-02-26 12:24] LABS: Bacteria,Urine 1+ /lpf; Squamous Epithelial Cell,Urine 20-50 #/hpf (0-5); WBC,Urine 20-50 #/hpf (0-3)
[2020-02-26 12:25] LABS: Amorphous Sediment,Urine 2+ /lpf
[2020-02-26 12:29] LABS: Benzodiazepines Screen,Urine Negative ng/ml (<200)
[2020-02-26 12:30] LABS: Amphetamine/Metha Screen,Urine Negative ng/ml (<1000); Barbiturates Screen,Urine Negative ng/ml (<200)
[2020-02-26 12:31] LABS: Cannabinoid Screen,Urine Negative ng/ml (<50)
[2020-02-26 12:32] LABS: Cocaine Screen,Urine Negative ng/ml (<300); Methadone Screen,Urine Negative ng/ml (<300)
[2020-02-26 12:33] LABS: Opiate Screen,Urine Negative ng/ml (<300); Phencyclidine Screen,Urine Negative ng/ml (<25)
[2020-02-26 13:06] VITALS: BP 115/60; PULSE 74; RESP 18; O2SAT 99
== END 2020-02-26 13:10 | disposition home or self-care (01) ==
LOC: OBOUT 10:02 → OB 10:02
PROVIDERS: PCP Physician Assistant; Referring Provider Nurse Practitioner Obstetrics & Gynecology; Visit Provider Obstetrics & Gynecology
DX: O47.03 False labor before 37 completed weeks of gestation, third trimester (principal); Z3A.36 36 weeks gestation of pregnancy
CPT/HCPCS: 59025; 76819; 80305; 81001; 87086; 96365; 96366; 96372; G0463

== ENCOUNTER 2020-02-27 21:14 | Inpatient (IN) | payer MEDICAID, SELFPAY ==
[2020-02-27 21:17] VITALS: BMI 34.1
[2020-02-27 21:46] LABS: Basophils % 0.2 % (0.1-2.0); Eosinophils # 0.1 K/mm3 (0.0-0.4); Eosinophils % 1.1 % (0.1-12.0); Hematocrit 35.6 % (37.0-47.0); Hemoglobin 12.4 g/dL (12.2-16.2); Lymphocytes # 1.7 K/mm3 (0.7-4.5); Lymphocytes % 14.3 % (10-50); Mean Corpuscular Hemoglobin 30.6 pg (27.0-31.2); Mean Corpuscular Volume 87.4 fl (81-99); Mean Platelet Volume 8.6 fl (7.4-10.4); Monocytes # 0.5 K/mm3 (0.1-1.0); Monocytes % 4.3 % (1.7-9.3); Neutrophils # 9.5 K/mm3 (1.8-7.8); Neutrophils % 80.2 % (37.0-80.0); Platelet Count 166 K/mm3 (142-424); Red Blood Count 4.07 M/mm3 (4.20-5.40); Red Cell Distribution Width 13.9 % (11.5-17.5); White Blood Count 11.8 K/mm3 (4.8-10.8)
[2020-02-27 22:00] LABS: Fetal Membrane Rupture (Rapid) Positive (Negative)
--- NOTE | 2020-02-27 22:07 | HMH.OBAPHP ---
OB - H&P: HPI Antepartum - History of Present Illness Chief complaint: Rupture of membranes at 36 weeks and 3 days History of present illness: She is a 29-year-old 2 para 1 who is 36 and 3 weeks gestational age. She stood up this evening and started leaking fluid. She was pouring out copious amounts of fluid. She came into labor and delivery and was having contractions every 3 to 4 minutes. She is 4 cm dilated 75% -3 with a floating head. Ultrasound confirmed a cephalic presentation. Her AmniSure was positive. - History of Present Criteria for establishing EDC:: LMP confirmed by 1st trimester US care: good care Ultrasounds: normal 1st trimester US, normal mid trimester US Obstetrical complications: labor Medical complications: other Narrative: She has been taking Lovenox throughout the because she has factor V Leiden and has had a previous history of DVT in . She takes Lovenox 40 mg daily. [facility] History I have reviewed the patient's past medical history: Yes Medical History: Reports:: Deep Vein Thrombosis *Have you ever received a pneumonia vaccine?: No *Have you received a flu vaccine this season?: No Other Medical History: Denies: Anemia Other Surgeries: Yes: No Previous Surgery. No: Amputation: No Fractures: No - *Social History Last grade of school completed: High school graduate Smoking Status: Never smoker Alcohol Intake: never Substance Use Type: denies use *Occupational Status:: employed *Travel in the last 8 weeks: None Family Hx:: No significant family history Review of Systems - Review of Systems Review of systems:: pertinent systems reviewed and negative unless documented below Meds Home Medications Medication Instructions Recorded Confirmed Type PNV 153-FA 400 mcg-om3 35 mg-dha 1 tab PO DAILY 09/14/19 02/15/20 History 25 mg-epa 5 mg-fish oil chew tablet Promethazine HCl 12.5 mg PO Q6HP PRN 11/01/19 02/15/20 History ferrous sulfate 325 mg (65 mg 325 mg PO DAILY #30 tab 11/09/19 02/15/20 Rx iron) tablet enoxaparin 40 mg/0.4 mL 40 mg SQ HS #4 ml 01/02/20 02/15/20 Rx subcutaneous syringe valacyclovir 500 mg tablet 500 mg PO DAILY #30 tab 01/02/20 02/15/20 Rx nifedipine 10 mg capsule PO 01/16/20 02/15/20 History Allergies Allergy/AdvReac Type Severity Reaction Status Date / Time Sulfa (Sulfonamide Allergy Mild Verified 02/15/20 15:41 Antibiotics) [SULFA (SULFONAMIDE ANTIBIOTICS)] OB - H&P: Exam - Constitutional no acute distress - Routine HEENT Exam Head: Present: normocephalic Eye: Present: EOMI, PERRL ENT: Present: mucous membranes moist - Routine Neck Exam Present: supple, full ROM - Routine Respiratory Exam Absent: accessory muscle use (good air entry bilaterally), respiratory distress, wheezes, crackles - Routine Cardiovascular Exam Present: RRR. Absent: murmur - Routine Abdominal Exam Present: soft, normoactive bowel sounds. Absent: tenderness, distended, guarding - Routine Rectal Exam Patient deferred: visual exam, digital exam - Routine Exam Patient deferred: external exam, groin exam, perineal exam - Routine Extremities Exam Present: full ROM. Absent: cyanosis, edema - Routine Skin Exam Present: intact. Absent: cyanosis - Routine Neurological Exam Present: alert, oriented X3 - Routine Psychiatric Exam Present: normal affect OB - Results - Labs Labs: Short CBC 02/27/20 Range/Units 21:30 WBC 11.8 H (4.8-10.8) K/mm3 Hgb 12.4 (12.2-16.2) g/dL Hct 35.6 L (37.0-47.0) % Plt Count 166 (142-424) K/mm3 OB - A/P Antepartum (1) History of DVT of lower extremity Current visit: Yes Status: Acute (2) premature rupture of membranes Current visit: Yes Status: Acute - Additional Plan Planning to breastfeed?: Yes Plan: expectant management Additional Information:: She has premature rupture of membran
[2020-02-27 22:17] LABS: Coronavirus 19 IgG Antibody Negative (Negative); Coronavirus 19 IgM Antibody Negative (Negative)
--- NOTE | 2020-02-27 22:46 | HMH.ANESCL ---
[facility] Anesthesia Checklist - Patient Identification Patient Identification: Arm Band - Structural Data Admitted From: Inpatient Planned Operative Procedure/s: labor epidural Consent for Planned Operative Procedure(s) Verified: Yes Verified Documents: Surgical Consent, History and Physical - NPO Status Verified Time NPO: 00:00 - Additional verifications Anesthesia Reactions: No - Airway Assessment C-Spine Mobility Assessed: Yes TMJ Mobility Assessed: Yes Dentition: Good Dentition - Neurological Assessment Level of Consciousness: Awake, Alert - Anesthesia Plan Anesthesia Risk discussed: Yes Anesthesia Plan: Verified ASA Class: II Anesthesia Type: Epidural [facility] History I have reviewed the patient's past medical history: Yes Medical History: Reports:: Deep Vein Thrombosis *Have you ever received a pneumonia vaccine?: No *Have you received a flu vaccine this season?: No Other Medical History: Reports: Other. Denies: Anemia Anesthesia experience/problems:: nac Other Surgeries: Yes: No Previous Surgery. No: Amputation: No Fractures: No - *Social History Last grade of school completed: High school graduate Smoking Status: Never smoker Alcohol Intake: never Substance Use Type: denies use *Occupational Status:: employed *Travel in the last 8 weeks: None Family Hx:: No significant family history
[2020-02-27 23:42] LABS: Microscopic, Urine URINE MICROSCOPIC (MICROSCOPIC)
[2020-02-27 23:47] LABS: Appearance,Urine CLEAR (Clear); Bilirubin,Urine Negative (Negative); Blood, Urine Negative (Negative); Color,Urine YELLOW (Yellow); Glucose,Urine (UA) Negative (Negative); Ketones,Urine Negative (Negative); Leukocyte Esterase,Urine Negative (Negative); Nitrate,Urine Negative (Negative); Protein,Urine Negative (Negative); Specific Gravity, Urine <= 1.005 (1.005-1.030); Urobilinogen,Urine 0.2 EU/dl (0.2)
[2020-02-27 23:59] LABS: Amphetamine/Metha Screen,Urine Negative ng/ml (<1000)
[2020-02-28] LABS: Barbiturates Screen,Urine Negative ng/ml (<200); Benzodiazepines Screen,Urine Negative ng/ml (<200)
[2020-02-28 00:01] LABS: Cannabinoid Screen,Urine Negative ng/ml (<50)
[2020-02-28 00:02] LABS: Cocaine Screen,Urine Negative ng/ml (<300); Methadone Screen,Urine Negative ng/ml (<300)
[2020-02-28 00:03] LABS: Opiate Screen,Urine Negative ng/ml (<300)
[2020-02-28 00:04] LABS: Phencyclidine Screen,Urine Negative ng/ml (<25)
[2020-02-28 01:07] LABS: WBC,Urine Occasional #/hpf (0-3)
[2020-02-28 01:08] LABS: Bacteria,Urine Trace /lpf; Squamous Epithelial Cell,Urine Occasional #/hpf (0-5)
[2020-02-28 01:31] VITALS: BP 106/58; PULSE 71; RESP 20; TEMP 37.3; O2SAT 98; BMI 34.1
--- NOTE | 2020-02-28 05:38 | HMH.LABNOT ---
Labor Note - Subjective: Date: 02/28/20 Time: 05:38 regular contraction - Objective: NST:: Reactive Contractions:: every 2-3 minutes Cervical Dilation:: 9-10 Effacement:: 100% Station: +2 Membranes: spontaneously ruptured - Fetus: Monitoring?: Yes monitoring type:: External - Assessment: Labor progressing?: Yes Cephalopelvic disproportion?: No Patient Problems: All Active Problems History of DVT of lower extremity (Acute) premature rupture of membranes (Acute) (Acute) Sarika-Cowan tear (Acute) Cystitis (Acute) Abdominal pain during (Acute) Viral infection (Acute) - Plan: Anesthesia for epidural?: Yes Continue to labor down?: Yes Plan for ?: No Continue to monitor?: Yes Start pushing?: Yes Continue pushing?: Yes
[2020-02-28 05:58] LABS: Cord Blood PH 7.42 (7.35-7.45)
--- NOTE | 2020-02-28 05:59 | HMH.DN ---
- Delivery Note Delivery Date:: 02/28/20 Delivery Time:: 05:42 Anesthesia Type: Epidural Was labor medically induced?: No Induction method: none Gestational age (weeks): 36 delivered prior to 39 weeks?: Yes Justification for early elective delivery:: Active Labor Infant Gender: Female at 1 minute: 7 at 5 minutes: 9 Delivery Procedure:: She is a 29-year-old 2 now para 1 who was 36 and 3 weeks gestational age. She ruptured her membranes at home. She subsequently was admitted overnight and under labor epidural progressed to full dilation. She delivered a liveborn female child at 5:42 AM on the morning of February 28, 2020. On deliver the head the anterior shoulder then delivered easily followed by the rest the infant's body atraumatically. The baby was vigorous and cried spontaneously. We allowed the cord to continue to pulsate for approximately 1 minute. The cord was then doubly clamped and cut and the was then handed off to the nurses who assigned Apgars of 7 at 1 minute and 9 at 5 minutes. We then obtained cord blood as well as cord pH. The pH was 7.42. She received IV oxytocin using gentle traction on the cord and countertraction on the fundus I was able to easily deliver the placenta intact at 5:54 AM. He had a normal three-vessel cord. There were no perineal or vaginal lacerations. She has a positive blood, she is rubella nonimmune and was group B streptococcus unknown. 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 She will be seen by pediatricians and likely transferred later this morning. She is otherwise stable. 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 Placental Delivery Description: Spontaneous
--- NOTE | 2020-02-28 08:52 | HMH.DCSUM ---
General - General Admission date:: 02/27/20 Discharge date: 02/28/20 HPI HPI: She is a 29-year-old 2 para 1 at 36 and 4 weeks gestational age. She came in in the evening prior to delivery with ruptured membranes. She was tisha regularly every 2 to 3 minutes. Hospital Course Hospital Course: She progressed under labor epidural to full dilation and delivered spontaneously a liveborn female child at 5:42 AM on the morning of February 28, 2020. The baby was a liveborn female child weighing 5 pounds 8 ounces with Apgars of 7 at 1 minute and 9 at 5 minutes. pH was 7.42. The baby is being discharged and transferred to [facility] since it has imperforate anus. Baby also was noted to have 6 fingers on her right hand and a vestigial tag on its left thumb. As result of the baby being transferred the mother will be discharged today as well. She is discharged home to follow-up with me in approximately 2 weeks time. She will continue with her vitamins and iron. She will receive MMR prior to discharge since she is rubella nonimmune. She is a positive. Her group B streptococcus status was unknown and she did receive IV antibiotics while in labor. Her condition on discharge is stable and improved. She was taking Lovenox 40 mg daily throughout her . She will go ahead and start that again tomorrow evening. Objective Vital signs: Temp Pulse Resp BP Pulse Ox 99.1 F 71 20 106/58 L 98 02/28/20 01:31 02/28/20 01:31 02/28/20 01:31 02/28/20 01:31 02/28/20 01:31 no acute distress - *Routine HEENT Exam Head: Present: normocephalic Eye: Present: EOMI, PERRL ENT: Present: mucous membranes moist Results Labs on day of discharge: Labs from last 24 hours 02/28/20 02/27/20 02/27/20 05:45 23:00 23:00 WBC RBC Hgb Hct MCV MCH MCHC RDW Plt Count MPV Neut % (Auto) Lymph % (Auto) [place] % (Auto) Eos % (Auto) Baso % (Auto) Neut # (Auto) Lymph # (Auto) [place] # (Auto) Eos # (Auto) Baso # (Auto) Cord ABG pH 7.42 Urine Color Yellow Urine Appearance Clear Urine pH 7.0 Ur Specific [place] <= 1.005 Urine Protein Negative Urine Glucose (UA) Negative Urine Ketones Negative Urine Blood Negative Urine Nitrate Negative Urine Bilirubin Negative Urine Urobilinogen 0.2 Ur Leukocyte Esterase Negative Urine WBC Occasional Ur Squamous Epith Cells Occasional Urine Bacteria Trace Membrane Rupture Urine Opiates Screen Negative Urine Methadone Screen Negative Ur Barbituates Screen Negative Ur Phencyclidine Scrn Negative Ur Amphetamines Screen Negative U Benzodiazepines Scrn Negative Urine Cocaine Screen Negative U Marijuana (THC) Screen Negative SARS-CoV-2 IgG Ab (Rapid) SARS-CoV-2 IgM Ab (Rapid) Blood Type Antibody Screen 02/27/20 02/27/20 02/27/20 21:30 21:30 21:30 WBC RBC Hgb Hct MCV MCH MCHC RDW Plt Count MPV Neut % (Auto) Lymph % (Auto) [place] % (Auto) Eos % (Auto) Baso % (Auto) Neut # (Auto) Lymph # (Auto) [place] # (Auto) Eos # (Auto) Baso # (Auto) Cord ABG pH Urine Color Urine Appearance Urine pH Ur Specific [place] Urine Protein Urine Glucose (UA) Urine Ketones Urine Blood Urine Nitrate Urine Bilirubin Urine Urobilinogen Ur Leukocyte Esterase Urine WBC Ur Squamous Epith Cells Urine Bacteria Membrane Rupture Positive A Urine Opiates Screen Urine Methadone Screen Ur Barbituates Screen Ur Phencyclidine Scrn Ur Amphetamines Screen U Benzodiazepines Scrn Urine Cocaine Screen U Marijuana (THC) Screen SARS-CoV-2 IgG Ab (Rapid) Negative SARS-CoV-2 IgM Ab (Rapid) Negative Blood Type A Positive Antibody Screen Negative 02/27/20 21:30 WBC 11.8 H
== END 2020-02-28 12:45 | disposition home or self-care (01) | DRG 806 ==
LOC: OBOUT 21:16 → OB 21:16
PROVIDERS: Admitting Provider Nurse Practitioner Obstetrics & Gynecology; PCP Physician Assistant; Visit Provider Nurse Practitioner Obstetrics & Gynecology
DX: O60.13X0 Preterm labor second trimester with preterm delivery third trimester, not applicable or unspecified (principal); Q87.89 Other specified congenital malformation syndromes, not elsewhere classified; Z37.0 Single live birth; Z3A.36 36 weeks gestation of pregnancy; Z79.01 Long term (current) use of anticoagulants; Z86.718 Personal history of other venous thrombosis and embolism; Z23 Encounter for immunization
CPT/HCPCS: 59409; 59025; 76819; 80305; 81001; 82800; 84112; 85025; 86328; 86850; 87086; 90707; 94761; 96365; 96366; 96372; G0463; J0290

== ENCOUNTER 2020-06-24 10:29 | Emergency (ER) | payer MEDICAID, SELFPAY ==
[2020-06-24 10:45] VITALS: BP 120/72; PULSE 74; RESP 16; TEMP 36.8; O2SAT 99; BMI 29.9
--- NOTE | 2020-06-24 11:23 | HMH.EDUTC ---
[facility] [place] Clinical Impression: Exposure to COVID-19 virus Disposition: Home, Self-Care Condition on Discharge: Good Instructions: Preventing the Spread of Coronavirus Discharge Instructions Additional Instructions: No sign of a bacterial infection. Likely viral. Viruses can take 7-14 days to run their course. Nasal saline and bulb syringe or nose Yaz to remove nasal drainage to help with nasal congestion. Hard to eat, drink, sleep with nasal congestion so important to keep this cleaned out. Monitor temp. Tylenol or Motrin as needed for pain or fever Encourage fluids, water, Gatorade, Powerade, Pedialyte if /toddler/child Warm salt water gargles Warm fluids Sore throat lozenges Sleep elevated Humidifier/vaporizer Your covid swab was sent for testing. These results are typically sent to the primary care. Be sure you follow-up in 2-3 days if no improvement so we can review the results and treat if necessary. self isolate for 10 days and call health dept about isolating Follow-up immediately for new or worsening symptoms or no noticeable improvement over the next 48-72 hours. Referrals: Porsha Mullins PA [Primary Care Provider] - Time of Disposition: 11:33 Medical Decision Making - Edwin Inquiry Pt receiving controlled substance: No Vital Signs: 06/24/20 10:45 Temperature 98.2 F Temperature Source Oral Pulse Rate [Right Brachial] 74 Respiratory Rate 16 Blood Pressure [Right Arm] 120/72 Blood Pressure Mean [Right Arm] 88 Blood Pressure Source [Right Arm] Automatic Cuff Blood Pressure Position [Right Arm] Sitting 02 Sat by Pulse Oximetry 99 Oxygen Delivery Method Room Air Orders (Tests/Meds): ORDERS Category Date Time Status Covid-19 Nasal PCR ([facility]) Routine Lab 06/24/20 10:45 Received [facility] [place] HPI - General Chief complaint: Urgent Treatment Center Stated complaint: covid test Time Seen by Provider: 06/24/20 11:23 Mode of Arrival: Ambulatory Source of Information: Patient Limitations: No Limitations Description of Symptoms (Recalled from Triage Doc. by RN): PATIENT REQUESTING COVID TEST D/T EXPOSURE YESTERDAY; DENIES SYMPTOMS HEENT Symptoms (Recalled from RN notes): No Resp Symptoms (Recalled from RN notes): No Skin Symptoms (Recalled from RN notes): No MS Symptoms (Recalled from RN notes): No Functional Status (Recalled from RN notes): WNL - History of Present Illness Provider Complaint: 30 yr old female presents for covid testing. pt states she was at a wedding yesterday and the lady sitting next to her tested positive for covid. pt states she was sitting at the table and at times pt did not have mask on. - Related Data Home Medications Medication Instructions Recorded Confirmed Valacyclovir HCl [Valacyclovir] 500 mg PO DAILY 02/28/20 05/16/20 Allergies Allergy/AdvReac Type Severity Reaction Status Date / Time Sulfa (Sulfonamide Allergy Mild Verified 05/16/20 16:00 Antibiotics) [SULFA (SULFONAMIDE ANTIBIOTICS)] - Worker's Comp Is this a Worker's Comp case?: No [facility] History - Hepatitis A Screen Drug use history?: No High risk sexual behaviors?: No History of sexually transmitted infection?: No Currently employed?: No Childcare worker?: No Do you have indoor plumbing?: Yes Do you have electricity?: Yes Attestation statement:: This patient has been screened for Hepatitis A risk factors. I have reviewed the patient's past medical history: Yes Medical History: Reports:: Deep Vein Thrombosis Other Medical History: Reports: Other. Denies: Anemia Other Surgeries: Yes: No Previous Surgery. No: Amputation: No Fractures: No - Social History Smoking Status: Never smoker Alcohol Intake: never Substance Use Type: denies use Occupational Status: other Family Hx:: No significant family history ROS Obtained: Yes Systems reviewed as appropriate & no additional complaints - Constitutional Constitutional: Reports system rev
[2020-06-24 11:47] VITALS: BP 120/72; PULSE 74; RESP 16; TEMP 36.8; O2SAT 99
--- NOTE | 2020-06-24 17:34 | PC.NURSE ---
patient notified of negative covid test results
== END 2020-06-24 11:49 | disposition home or self-care (01) ==
PROVIDERS: Emergency Provider Nurse Practitioner Family; PCP Physician Assistant
DX: Z20.828 Contact with and (suspected) exposure to other viral communicable diseases (principal); Z86.718 Personal history of other venous thrombosis and embolism
CPT/HCPCS: 99201; U0003

== ENCOUNTER 2020-09-21 12:15 | Emergency (ER) | payer MEDICAID, SELFPAY ==
[2020-09-21 12:17] VITALS: BP 132/60; PULSE 78; RESP 20; TEMP 37; O2SAT 100; BMI 33.1
--- NOTE | 2020-09-21 12:30 | CT_ITS ---
PROCEDURE: CT ABDOMEN PELVIS W CON CLINICAL INDICATION: pain, bleeding Bright red blood in stools COMPARISON: CT ABDPELO CT abdomen pelvis wo con from 09/11/2017 TECHNIQUE: IV Contrast: 75ML Isovue 370 Oral Contrast None Axial images obtained with sagittal and coronal reformats. All CT scans at the facility use one or more dose reduction, viz: automated exposure control, ma/kV adjustment per patient size (including targeted exams where dose is matched to indication, i.e. head), or iterative reconstruction technique. FINDINGS: LOWER THORAX: No acute finding ABDOMEN & PELVIS: The liver, spleen, adrenal glands, and pancreas have an unremarkable appearance. There has been a prior cholecystectomy. No renal or ureteral calculi. There is a retro aortic left renal vein. No intestinal obstruction or free air. No evidence of appendicitis. No diffuse colon wall thickening. No evidence of diverticulitis the fundus of the uterus is somewhat irregular in contour nonspecific. There is a small amount fluid in the pelvis. No acute bony findings. IMPRESSION: No acute finding. Dictated by: Bello Hendrickson MD 09/21/2020 13:30 Bello Hendrickson MD in [place] 09/21/2020 13:30
--- NOTE | 2020-09-21 12:47 | HMH.EDGENADL ---
ED Disposition Clinical Impression: Blood in stool Abdominal pain Qualifiers: Abdominal location: generalized Qualified Code(s): R10.84 - Generalized abdominal pain Disposition: Left Against Medical Advice Condition on Discharge: Undetermined Referrals: Porsha Mullins PA [Primary Care Provider] - - Critical Care Critical Care Time: No Attestation: On 09/21/20, the high probability of a clinically significant, sudden or life threatening deterioration of the following system(s) required my full and direct attention, intervention and personal management. The time I documented below is in addition to time spent performing reported procedures but includes the following listed in this critical care notation. Medical Decision Making - Medical Records Medical records reviewed: Yes: I reviewed the patient's medical records. - Edwin Inquiry Pt receiving controlled substance: No Vital Signs: 09/21/20 12:17 Temperature 98.6 F Temperature Source Oral Pulse Rate [Left Radial] 78 Respiratory Rate 20 Blood Pressure [Right Arm] 132/60 Blood Pressure Mean [Right Arm] 84 Blood Pressure Source [Right Arm] Automatic Cuff Blood Pressure Position [Right Arm] Sitting 02 Sat by Pulse Oximetry 100 Oxygen Delivery Method Room Air - Lab Data Lab Results 09/21/20 12:15: Urine Color Yellow, Urine Appearance Clear, Urine pH 7.0, Ur Specific Cable 1.025, Urine Protein Negative, Urine Glucose (UA) Negative, Urine Ketones Negative, Urine Blood Negative, Urine Nitrate Negative, Urine Bilirubin Negative, Urine Urobilinogen 0.2, Ur Leukocyte Esterase Negative, Urine RBC None, Urine WBC None, Ur Squamous Epith Cells 10-20, Amorphous Sediment 1+, Urine Bacteria None 09/21/20 12:15: Urine HCG, Qual Negative 09/21/20 12:40: WBC 6.8, RBC 5.07, Hgb 13.7, Hct 42.5, MCV 83.9, MCH 27.1, MCHC 32.3, RDW 13.6, Plt Count 191, MPV 9.2, Neut % (Auto) 67.2, Lymph % (Auto) 25.5, [place] % (Auto) 4.7, Eos % (Auto) 1.8, Baso % (Auto) 0.7, Neut # (Auto) 4.6, Lymph # (Auto) 1.7, [place] # (Auto) 0.3, Eos # (Auto) 0.1, Baso # (Auto) 0.1 09/21/20 12:40: Sodium 142, Potassium 4.1, Chloride 107, Carbon Dioxide 28, Anion Gap 11.1, BUN 11, Creatinine 0.80, Estimated Creat Clear 149, Estimated GFR 85, Est GFR ( Amer) 103, Glucose 74, Calcium 9.4, Total Bilirubin 0.3, AST 26, ALT 16, Alkaline Phosphatase 66, Total Protein 8.1, Albumin 4.6, Globulin 3.5 H, Albumin/Globulin Ratio 1.3, Lipase 48 Result diagrams: 09/21/20 12:40 09/21/20 12:40 Orders (Tests/Meds): ED MEDICATIONS Discontinued Medications Generic Name Dose Route Start Last Admin Trade Name Freq PRN Reason Stop Dose Admin Iopamidol 75 ml 09/21/20 13:09 09/21/20 13:10 Iopamidol-370 (76%);100ml Bottle IV 09/21/20 13:10 75 ml ONCE ONE Administration Sodium Chloride 10 ml 09/21/20 13:09 09/21/20 13:10 Sodium Chloride 0.9% 10ml Syr (Rad Only) IV 09/21/20 13:10 10 ml ONCE ONE Administration - CT Data CT Scan: Abdomen, Pelvis Time Received: 14:[address] Reviewed: Yes: I have reviewed the patient's CT results, I have viewed the radiologist's interpretation Findings Narrative: IMPRESSION: No acute finding. - Reevaluation(s) Time: 14:05 Reevaluation #1: Upon getting the patient seen she findings, I did go to reevaluate and discussed with her. I was notified by nursing staff that the patient left without completing treatment. She did not receive the follow-up information or notifications of her work-up. Medical Decision Narrative: 30-year-old female presented to the emergency department with abdominal cramping and blood in the stools. Findings are consistent with colitis. Patient's abdominal exam is nonacute and rather benign. Work-up initiated. General Adult HPI - General Chief complaint: PAIN Stated complaint: bleeding in skull Time Seen by Provider: 09/21/20 12:20 Mode of Arrival: Ambulatory Limitations: No Limitations Description of Sympto
[2020-09-21 12:49] LABS: Microscopic, Urine URINE MICROSCOPIC (MICROSCOPIC)
[2020-09-21 12:54] LABS: Appearance,Urine CLEAR (Clear); Bilirubin,Urine Negative (Negative); Blood, Urine Negative (Negative); Color,Urine YELLOW (Yellow); Glucose,Urine (UA) Negative (Negative); Ketones,Urine Negative (Negative); Leukocyte Esterase,Urine Negative (Negative); Nitrate,Urine Negative (Negative); Protein,Urine Negative (Negative); Specific Gravity, Urine 1.025 (1.005-1.030); Urobilinogen,Urine 0.2 EU/dl (0.2)
[2020-09-21 12:55] LABS: Basophils # 0.1 K/mm3 (0-0.2); Basophils % 0.7 % (0.1-2.0); Eosinophils # 0.1 K/mm3 (0.0-0.4); Eosinophils % 1.8 % (0.1-12.0); Hematocrit 42.5 % (37.0-47.0); Hemoglobin 13.7 g/dL (12.2-16.2); Lymphocytes # 1.7 K/mm3 (0.7-4.5); Lymphocytes % 25.5 % (10-50); Mean Corpuscular HGB Conc 32.3 g/dL (31.8-35.4); Mean Corpuscular Hemoglobin 27.1 pg (27.0-31.2); Mean Corpuscular Volume 83.9 fl (81-99); Mean Platelet Volume 9.2 fl (7.4-10.4); Monocytes # 0.3 K/mm3 (0.1-1.0); Monocytes % 4.7 % (1.7-9.3); Neutrophils # 4.6 K/mm3 (1.8-7.8); Neutrophils % 67.2 % (37.0-80.0); Platelet Count 191 K/mm3 (142-424); Red Blood Count 5.07 M/mm3 (4.20-5.40); Red Cell Distribution Width 13.6 % (11.5-17.5); White Blood Count 6.8 K/mm3 (4.8-10.8)
[2020-09-21 12:56] LABS: Urine Pregnancy, HCG Qual. Negative (Negative)
[2020-09-21 13:00] LABS: Alanine Aminotransferase 16 U/L (12-78); Albumin Level 4.6 g/dl (3.5-5.0); Albumin/Globulin Ratio 1.3 (1.1-1.8); Alkaline Phosphatase 66 U/L (38-126); Anion Gap 11.1 mEq/L (5-15); Aspartate Amino Transferase 26 U/L (14-36); Bilirubin,Total 0.3 mg/dl (0.2-1.3); Blood Urea Nitrogen 11 mg/dl (7-17); Calcium 9.4 mg/dl (8.4-10.2); Carbon Dioxide 28 mmol/L (22.0-30.0); Chloride 107 mmol/L (98-107); Creatinine Clearance Estimated 149 mL/min (50-200); Estimated Glomerular Filt Rate 85 ml/min (>60); GFR (African American) 103 ML/MIN (>60); Globulin 3.5 g/dL (1.3-3.2); Glucose 74 mg/dl (74-100); Lipase 48 U/L (23-300); Potassium 4.1 mmoL/L (3.5-5.1); Sodium 142 mmol/L (136-145); Total Protein,Serum 8.1 g/dl (6.3-8.2)
[2020-09-21 13:03] LABS: Amorphous Sediment,Urine 1+ /lpf
[2020-09-21 13:30] VITALS: BP 132/60; PULSE 78; RESP 20; TEMP 37; O2SAT 100
--- NOTE | 2020-09-21 14:08 | PC.NURSE ---
Pt states that she felt a staff member was rude when educating her on the rules on children being in the ER. A nurse had told the pt that her 6 month old child could be in the ER room with the mother after nurse thought that child was with sister in the waiting room. When the child got to the room more than 30 minutes later and was educated by other staff member that it would be better that child was outside with other adult, pt got upset and stated that she would just have her test sent to her pcp. That she felt like she was being told she was a bad mother by bringing her child in the ER room. Talked with pt I understood her feelings and that Im sure that was not the intention it was more to keep the baby safe and that her test results would be back soon if she would wait a little longer. Pt was crying and wanted to just go and fu with her pcp.
== END 2020-09-21 13:31 | disposition left against medical advice (07) ==
PROVIDERS: Emergency Provider Emergency Medicine; PCP Physician Assistant
DX: R10.84 Generalized abdominal pain (principal); K92.1 Melena; Z86.718 Personal history of other venous thrombosis and embolism; Z88.2 Allergy status to sulfonamides
CPT/HCPCS: 74177; 80053; 81001; 81025; 83690; 85025; 99283; Q9967

== ENCOUNTER → 2020-10-16 11:28 | Outpatient (CLI) | payer MEDICAID, SELFPAY ==
--- NOTE | 2020-10-16 11:30 | CA_ITS ---
APPROVED REPORT Bilateral Lower Extremity Venous Study for DVT. School Standards Coach: Susu Khan RVT Indications Lower Extremity Pain: Bilateral BLE PAIN Risk Factors Prior Phlebitis/DVT Vein Imaging CFV (R): compressive, spontaneous, phasic, augmentation FEM (R): compressive, spontaneous, phasic, augmentation POP (R): compressive, spontaneous, phasic, augmentation PTV (R): Compressible GSV (R): Compressible Peroneals (R):Compressible GAS (R): Compressible CFV (L): compressive, spontaneous, phasic, augmentation FEM (L): compressive, spontaneous, phasic, augmentation POP (L): compressive, spontaneous, phasic, augmentation PTV (L): Compressible GSV (L): Compressible Peroneals (L):Compressible GAS (L): Compressible Findings Study suggests no evidence of DVT of the bilateral lower extremities. Study suggests no evidence of SVT of the bilateral lower extremities. Conclusion Study suggests no evidence of DVT of the bilateral lower extremities. Study suggests no evidence of SVT of the bilateral lower extremities. Electronically signed by : Bello Hendrickson MD 10/16/2020 18:26:20
== END ==
PROVIDERS: PCP Nurse Practitioner Family; Visit Provider Nurse Practitioner Family
DX: M79.604 Pain in right leg (principal); M79.605 Pain in left leg; N39.0 Urinary tract infection, site not specified
CPT/HCPCS: 87086; 87088; 87186; 93970

== ENCOUNTER 2020-12-31 13:38 | Emergency (ER) | payer MEDICAID, SELFPAY ==
[2020-12-31 13:40] VITALS: BP 121/56; PULSE 86; RESP 16; TEMP 36.9; O2SAT 99; BMI 28.3
[2020-12-31 14:02] LABS: Microscopic, Urine URINE MICROSCOPIC (MICROSCOPIC)
[2020-12-31 14:06] LABS: Appearance,Urine CLEAR (Clear); Bilirubin,Urine Negative (Negative); Blood, Urine Negative (Negative); Color,Urine YELLOW (Yellow); Glucose,Urine (UA) Negative (Negative); Ketones,Urine Negative (Negative); Leukocyte Esterase,Urine TRACE (Negative); Nitrate,Urine Negative (Negative); Protein,Urine Negative (Negative); Specific Gravity, Urine 1.025 (1.005-1.030); Urine Pregnancy, HCG Qual. Positive (Negative); Urobilinogen,Urine 0.2 EU/dl (0.2)
[2020-12-31 14:21] LABS: RBC,Urine Occasional #/hpf (0-3); Squamous Epithelial Cell,Urine 20-50 #/hpf (0-5)
[2020-12-31 14:22] LABS: Bacteria,Urine 3+ /lpf
[2020-12-31 14:43] VITALS: BP 111/54; PULSE 81; O2SAT 100
[2020-12-31 14:43] LABS: Chloride 106 mmol/L (98-107); HCG Qualitative, Serum Positive (Negative)
[2020-12-31 14:44] LABS: Potassium 3.9 mmoL/L (3.5-5.1); Sodium 139 mmol/L (136-145)
--- NOTE | 2020-12-31 14:44 | HMH.EDGENADL ---
ED Disposition Clinical Impression: Abnormal in first trimester Disposition: Home, Self-Care Condition on Discharge: Good Instructions: Threatened Miscarriage, DI for Threatened Additional Instructions: You have been evaluated for nausea, dehydration. Please follow-up with Dr. Mattson within 24 to 48 hours for repeat beta hCG. Take Zofran for nausea. Follow bland diet. Return to the emergency department for any new or worsening symptoms. Prescriptions: Ondansetron [Zofran 4mg ODT] 4 mg PO Q6 PRN #12 tab PRN Reason: Vomiting Transmission Status: Received by [facility] #[id number] Referrals: Porsha Mullins PA [Primary Care Provider] - Time of Disposition: 16:12 - Critical Care Critical Care Time: No Attestation: On 12/31/20, the high probability of a clinically significant, sudden or life threatening deterioration of the following system(s) required my full and direct attention, intervention and personal management. The time I documented below is in addition to time spent performing reported procedures but includes the following listed in this critical care notation. Medical Decision Making - Medical Records Medical records reviewed: Yes: I reviewed the patient's medical records. - Edwin Inquiry Pt receiving controlled substance: No Vital Signs: 12/31/20 13:40 12/31/20 14:43 12/31/20 16:53 Temperature 98.4 F 98.4 F Temperature Source Oral Oral Pulse Rate 81 79 Pulse Rate [Right Radial] 86 Respiratory Rate 16 18 Blood Pressure 111/54 L 117/68 Blood Pressure [Right Arm] 121/56 L Blood Pressure Mean [Right Arm] 77 Blood Pressure Source Automatic Cuff Blood Pressure Source [Right Arm] Automatic Cuff Blood Pressure Position [Right Arm] Sitting 02 Sat by Pulse Oximetry 99 100 Oxygen Delivery Method Room Air Room Air - Lab Data Lab Results 12/31/20 13:41: Urine Color Yellow, Urine Appearance Clear, Urine pH 6.0, Ur Specific Sulphur 1.025, Urine Protein Negative, Urine Glucose (UA) Negative, Urine Ketones Negative, Urine Blood Negative, Urine Nitrate Negative, Urine Bilirubin Negative, Urine Urobilinogen 0.2, Ur Leukocyte Esterase Trace, Urine RBC Occasional, Urine WBC 5-10, Ur Squamous Epith Cells 20-50, Urine Bacteria 3+ 12/31/20 13:41: Urine HCG, Qual Positive 12/31/20 14:05: WBC 8.7, RBC 4.75, Hgb 13.5, Hct 39.7, MCV 83.5, MCH 28.4, MCHC 34.0, RDW 13.7, Plt Count 226, MPV 8.8, Neut % (Auto) 69.6, Lymph % (Auto) 23.9, [place] % (Auto) 4.3, Eos % (Auto) 1.6, Baso % (Auto) 0.7, Neut # (Auto) 6.1, Lymph # (Auto) 2.1, [place] # (Auto) 0.4, Eos # (Auto) 0.1, Baso # (Auto) 0.1 12/31/20 14:05: Sodium 139, Potassium 3.9, Chloride 106, Carbon Dioxide 26, Anion Gap 10.9, BUN 8, Creatinine 0.70, Estimated Creat Clear 146, Estimated GFR 100, Est GFR ( Amer) 121, Glucose 102 H, Calcium 9.2, Total Bilirubin 0.5, AST 30, ALT 21, Alkaline Phosphatase 64, Total Protein 7.6, Albumin 4.5, Globulin 3.1, Albumin/Globulin Ratio 1.5 12/31/20 14:05: Serum HCG, Qual Positive 12/31/20 14:06: HCG, Quant 1630 H Result diagrams: 12/31/20 14:05 12/31/20 14:05 Orders (Tests/Meds): ED MEDICATIONS Discontinued Medications Generic Name Dose Route Start Last Admin Trade Name Freq PRN Reason Stop Dose Admin Sodium Chloride 1,000 mls @ 999 mls/hr 12/31/20 14:00 12/31/20 14:08 Sod Chlor 0.9% 1000ml Bag IV 12/31/20 15:00 999 mls/hr .Q1H1M LUANNE Administration ORDERS Category Date Time Status Urine Culture Stat Micro 12/31/20 13:41 Received - US Data US Images: Other ED US Reviewed: Yes: I have reviewed the patient's US results, I have viewed radiologist's interpretation Findings Narrative: Abnormal pelvic ultrasound with what appears to represent tissue without heart tones and an abnormal appearing gestational sac. This could be due to a missed miscarriage.. A uterine polyp with endometrial fluid could have a similar appearance. Please c
[2020-12-31 14:46] LABS: Alanine Aminotransferase 21 U/L (12-78); Alkaline Phosphatase 64 U/L (38-126); Anion Gap 10.9 mEq/L (5-15); Aspartate Amino Transferase 30 U/L (14-36); Bilirubin,Total 0.5 mg/dl (0.2-1.3); Blood Urea Nitrogen 8 mg/dl (7-17); Carbon Dioxide 26 mmol/L (22.0-30.0); Creatinine Clearance Estimated 146 mL/min (50-200); Estimated Glomerular Filt Rate 100 ml/min (>60); GFR (African American) 121 ML/MIN (>60)
[2020-12-31 14:47] LABS: Albumin Level 4.5 g/dl (3.5-5.0); Albumin/Globulin Ratio 1.5 (1.1-1.8); Calcium 9.2 mg/dl (8.4-10.2); Globulin 3.1 g/dL (1.3-3.2); Glucose 102 mg/dl (74-100); Total Protein,Serum 7.6 g/dl (6.3-8.2)
--- NOTE | 2020-12-31 14:48 | US_ITS ---
PROCEDURE: US OB <= 14 WEEKS FETUS CLINICAL INDICATION: , cramping COMPARISON: US US OB BIOPHYSICAL PROFILE from 02/26/2020 FINDINGS: Endometrial fluid is present. It is not as round as what 1 would expect for a normal gestational sac. An oblong area of slight increased echogenicity is present in the central aspect of the sac measuring up to 1.65 cm in length. This could possibly represent a pole. However, no heart tones are evident. These findings could also represent an endometrial polyp with fluid in the endometrium. Please correlate with beta HCG. Yolk sac is not identified. The adnexa are unremarkable. No cul-de-sac fluid is evident. There may be a bicornuate uterus. IMPRESSION: Abnormal pelvic ultrasound with what appears to represent tissue without heart tones and an abnormal appearing gestational sac. This could be due to a missed miscarriage.. A uterine polyp with endometrial fluid could have a similar appearance. Please correlate with beta HCG and follow-up ultrasound. Dictated by: Bello Hendrickson MD 12/31/2020 15:54 Bello Hendrickson MD in [place] 12/31/2020 15:54
--- NOTE | 2020-12-31 14:53 | PC.NURSE ---
notified rad of ultrasound order
--- NOTE | 2020-12-31 14:58 | PC.NURSE ---
Pt to rad.
--- NOTE | 2020-12-31 15:35 | PC.NURSE ---
ultrasound staff gave verbal report to ER MD at this time upon returning pt to ER
[2020-12-31 16:32] LABS: HCG,Quantitative 1630 mIU/ml (0-5.42)
[2020-12-31 16:39] LABS: Basophils # 0.1 K/mm3 (0-0.2); Basophils % 0.7 % (0.1-2.0); Eosinophils # 0.1 K/mm3 (0.0-0.4); Eosinophils % 1.6 % (0.1-12.0); Hematocrit 39.7 % (37.0-47.0); Hemoglobin 13.5 g/dL (12.2-16.2); Lymphocytes # 2.1 K/mm3 (0.7-4.5); Lymphocytes % 23.9 % (10-50); Mean Corpuscular Hemoglobin 28.4 pg (27.0-31.2); Mean Corpuscular Volume 83.5 fl (81-99); Mean Platelet Volume 8.8 fl (7.4-10.4); Monocytes # 0.4 K/mm3 (0.1-1.0); Monocytes % 4.3 % (1.7-9.3); Neutrophils # 6.1 K/mm3 (1.8-7.8); Neutrophils % 69.6 % (37.0-80.0); Platelet Count 226 K/mm3 (142-424); Red Blood Count 4.75 M/mm3 (4.20-5.40); Red Cell Distribution Width 13.7 % (11.5-17.5); White Blood Count 8.7 K/mm3 (4.8-10.8)
[2020-12-31 16:53] VITALS: BP 117/68; PULSE 79; RESP 18; TEMP 36.9; O2SAT 100
== END 2020-12-31 16:53 | disposition home or self-care (01) ==
PROVIDERS: Emergency Provider Emergency Medicine; PCP Physician Assistant
DX: O26.91 Pregnancy related conditions, unspecified, first trimester (principal)
CPT/HCPCS: 76801; 80053; 81001; 81025; 84702; 84703; 85025; 87086; 87088; 87186; 96365; 99283; U0003

== ENCOUNTER → 2021-01-02 13:15 | Outpatient (CLI) | payer MEDICAID, SELFPAY ==
[2021-01-02 14:27] LABS: HCG,Quantitative 3157 mIU/ml (0-5.42)
== END ==
PROVIDERS: Visit Provider Nurse Practitioner Obstetrics & Gynecology
DX: O02.1 Missed abortion (principal); N93.9 Abnormal uterine and vaginal bleeding, unspecified
CPT/HCPCS: 36415; 84702

== ENCOUNTER → 2021-01-07 10:40 | Outpatient (CLI) | payer MEDICAID, SELFPAY ==
--- NOTE | 2021-01-07 10:45 | US_ITS ---
PROCEDURE: US OB <= 14 WEEKS FETUS CLINICAL INDICATION: to check for viable COMPARISON: US US OB <= 14 WEEKS FETUS from 12/31/2020 FINDINGS: There is an intrauterine gestational sac. A pole is present which measures 1.26 cm correlating to gestational age of 7 weeks and 4 days. No cardiac activity is identified within the pole. There is some irregularity of the gestational sac. IMPRESSION: Nonviable intrauterine gestation Dictated by: Bello Hendrickson MD 01/07/2021 12:18 Bello Hendrickson MD in [place] 01/07/2021 12:18
== END ==
PROVIDERS: PCP Physician Assistant; Visit Provider Nurse Practitioner Obstetrics & Gynecology
DX: O20.0 Threatened abortion (principal)
CPT/HCPCS: 76801

== ENCOUNTER → 2021-01-15 11:28 | Outpatient (CLI) | payer MEDICAID, SELFPAY ==
[2021-01-15 12:27] LABS: Basophils % 0.4 % (0.1-2.0); Eosinophils # 0.2 K/mm3 (0.0-0.4); Hematocrit 38.1 % (37.0-47.0); Lymphocytes # 1.7 K/mm3 (0.7-4.5); Lymphocytes % 20.9 % (10-50); Mean Corpuscular HGB Conc 34.2 g/dL (31.8-35.4); Mean Corpuscular Hemoglobin 28.3 pg (27.0-31.2); Mean Corpuscular Volume 82.7 fl (81-99); Mean Platelet Volume 8.9 fl (7.4-10.4); Monocytes # 0.3 K/mm3 (0.1-1.0); Monocytes % 4.1 % (1.7-9.3); Neutrophils % 72.5 % (37.0-80.0); Platelet Count 173 K/mm3 (142-424); Red Cell Distribution Width 13.7 % (11.5-17.5); White Blood Count 8.3 K/mm3 (4.8-10.8)
[2021-01-15 13:19] LABS: Amphetamine/Metha Screen,Urine Negative ng/ml (<1000)
[2021-01-15 13:20] LABS: Barbiturates Screen,Urine Negative ng/ml (<200); Benzodiazepines Screen,Urine Negative ng/ml (<200)
[2021-01-15 13:21] LABS: Cannabinoid Screen,Urine Negative ng/ml (<50)
[2021-01-15 13:22] LABS: Cocaine Screen,Urine Negative ng/ml (<300); Methadone Screen,Urine Negative ng/ml (<300)
[2021-01-15 13:23] LABS: Phencyclidine Screen,Urine Negative ng/ml (<25)
[2021-01-15 13:24] LABS: Opiate Screen,Urine Negative ng/ml (<300)
== END ==
PROVIDERS: Visit Provider Obstetrics & Gynecology
DX: Z01.812 Encounter for preprocedural laboratory examination (principal); Z11.52 Encounter for screening for COVID-19; O02.1 Missed abortion
CPT/HCPCS: 36415; 80305; 85025; U0003

== ENCOUNTER 2021-01-17 06:32 | Day surgery (SDC) | payer MEDICAID, SELFPAY ==
[2021-01-15 08:49] VITALS: BMI 33.3
[2021-01-17] VITALS (12 sets, daily range): BP systolic 109–123; BP diastolic 59–79; PULSE 66–89; RESP 16–20; TEMP 36.5–43; O2SAT 95–100
--- NOTE | 2021-01-17 07:42 | P.PN_ITS ---
[facility] Anesthesia Checklist - Patient Identification Patient Identification: Arm Band - Structural Data Admitted From: Home Planned Operative Procedure/s: D&C with Carbon Suction Consent for Planned Operative Procedure(s) Verified: Yes Verified Documents: Surgical Consent, History and Physical - NPO Status Verified Time NPO: 00:00 - Additional verifications Anesthesia Reactions: No Hx Blood Transfusions: No Blood Transfusion Reaction: No - Airway Assessment C-Spine Mobility Assessed: Yes (mp2) TMJ Mobility Assessed: Yes Dentition: Good Dentition - Neurological Assessment Level of Consciousness: Awake, Alert - Anesthesia Plan Anesthesia Risk discussed: Yes Anesthesia Plan: Verified ASA Class: II Anesthesia Type: General [facility] History I have reviewed the patient's past medical history: Yes Medical History: Reports:: Deep Vein Thrombosis Denies:: Cancer, Diabetes Mellitus Type 1, Diabetes Mellitus Type 2, Internal Pacemaker, MRSA, Seizures *Have you ever received a pneumonia vaccine?: No *Have you received a flu vaccine this season?: No Other Medical History: Reports: Other. Denies: Anemia, Blood Transfusion Reaction Anesthesia experience/problems:: nac Laterality Cases: Bilateral: Other Other Surgeries: Yes: Cholecystectomy, Other. No: , Pacemaker Amputation: No Fractures: No - *Social History Last grade of school completed: High school graduate Smoking Status: Never smoker Alcohol Intake: current Alcohol Intake Frequency:: holidays/special occasions only Substance Use Type: denies use *Occupational Status:: employed Housing: house Household Members: children *Travel in the last 8 weeks: Inside the [facility] Family Hx:: Diabetes, Heart Attack, Stroke
--- NOTE | 2021-01-17 08:58 | HMH.ANESI ---
[facility] Anesthesia Record Part I Intake, IV Amount: 1,000 Estimated blood loss (mL): 50 Urine output (mL): 0 Blood Pressure: 123/67 SaO2: 95 Pulse Rate: 89 Respiratory Rate: 16 Temperature: 98.4 F Patient is:: Drowsy, Stable Stable to PACU at:: 08:55
--- NOTE | 2021-01-17 09:16 | HMH.OPNOTE ---
Date of procedure: 01/17/21 Pre-op Diagnosis:: Missed Post-op Diagnosis:: same Procedure performed:: Suction Dilation and Curettage Surgeon:: Princess Soler MD DATA MANAGEMENT SPECIALIST:: Severiano Vazquez Anesthesia: OSKAR Estimated blood loss (mL): 50 Operative findings:: grossly normal anatomy Operative note:: The patient was taken to the OR and general anesthesia administered without difficulty. She was prepped and draped in lithotomy position. Mullen retractors were used to visualize the cervix and a single tooth tenaculum placed on the anterior lip of the cervix. The cervix was passively dilated until it could accomodate the suction curette. A size # 7 curved curette was used to evacuate the contents of the uterus. Once the products of conception had been evacuated, sharp curettage was used to ensure that no products remained within the uterine cavity. All instruments were then removed from the patients vagina, she was taken out of lithotomy position, awakened from anesthesia and taken to the PACU in stable condition. EBL: 50cc Condition: stable Disposition: PACU Specimens:: Products of conception Complications:: none
--- NOTE | 2021-01-17 09:31 | PC.NURSE ---
[id number]-detailed report called to KRYSTAL Lopez [id number]-pt transported to post op via stretcher w/ariel rails up and left in care of KRYSTAL Atkinson with bed locked in lowest position, vss, pt stable
[2021-01-18 07:05] VITALS: BP 109/59; PULSE 66; TEMP 36.6
--- NOTE | 2021-01-18 07:05 | HMH.ANESII ---
[facility] Anesthesia Record Part II Discharge Time: 09:25 Destination: Surgical Day Care (OP Surgery) PACU nurse assessment reviewed?: Yes Patient Condition:: Good Anesthesia Complications:: None Swallowing reflex intact?: Yes Cyanosis?: No Blood Pressure: 109/59 Pulse Rate: 66 Temperature: 97.9 F Mental Status: Alert & Oriented Pain level:: 0 Nausea and/or vomitting:: None Intake, IV Amount: 0
== END 2021-01-17 11:42 | disposition home or self-care (01) ==
LOC: OR 06:35
PROVIDERS: PCP Physician Assistant; Visit Provider Obstetrics & Gynecology
PROC: (CPT 59820; principal; 2021-01-17 08:00)
DX: O02.1 Missed abortion (principal); Z86.718 Personal history of other venous thrombosis and embolism; Z90.49 Acquired absence of other specified parts of digestive tract; Z83.3 Family history of diabetes mellitus; Z82.3 Family history of stroke
CPT/HCPCS: 59820; 96374; J2405

== ENCOUNTER → 2021-02-15 09:34 | Outpatient (CLI) | payer MEDICAID, SELFPAY ==
[2021-02-15 11:01] LABS: HCG,Quantitative 32746 mIU/ml (0-5.42)
== END ==
PROVIDERS: Visit Provider Obstetrics & Gynecology
DX: Z34.90 Encounter for supervision of normal pregnancy, unspecified, unspecified trimester (principal)
CPT/HCPCS: 36415; 84702

== ENCOUNTER → 2021-02-18 12:19 | Outpatient (CLI) | payer MEDICAID, SELFPAY ==
[2021-02-18 18:15] LABS: HCG,Quantitative 34416 mIU/ml (0-5.42)
== END ==
PROVIDERS: Visit Provider Obstetrics & Gynecology
DX: Z34.90 Encounter for supervision of normal pregnancy, unspecified, unspecified trimester (principal)
CPT/HCPCS: 36415; 84702

== ENCOUNTER → 2021-02-21 09:34 | Outpatient (CLI) | payer MEDICAID, SELFPAY ==
--- NOTE | 2021-02-21 09:38 | US_ITS ---
PROCEDURE: US OB TRANSVAGINAL CLINICAL INDICATION: inappropriate change in HCG COMPARISON: US US OB <= 14 WEEKS FETUS from 12/31/2020 US US OB <= 14 WEEKS FETUS from 01/07/2021 FINDINGS: There is a bicornuate uterus. In the right horn of the uterus there is a live intrauterine gestation. The left horn is empty. An intrauterine gestational sac is present within the right cornu with a pole with a crown-rump length of 5.36cm correlating to gestational age of 12weeks 1day. heart tones are present with an FHR of 165bpm. Yolk sac is noted. Placenta is forming right lateral. Unremarkable adnexa IMPRESSION: Live IUP at 12 weeks 1 day within the right horn of a bicornuate uterus Estimated due date by Ultrasound is 09/04/2021 Dictated by: Bello Hendrickson MD 02/21/2021 14:47 Bello Hendrickson MD in [place] 02/21/2021 14:47
== END ==
PROVIDERS: PCP Physician Assistant; Visit Provider Obstetrics & Gynecology
DX: O02.81 Inappropriate change in quantitative human chorionic gonadotropin (hCG) in early pregnancy (principal)
CPT/HCPCS: 76817

== ENCOUNTER → 2021-02-22 10:28 | Outpatient (CLI) | payer MEDICAID, SELFPAY ==
[2021-02-22 11:41] LABS: Basophils % 0.4 % (0.1-2.0); Eosinophils # 0.1 K/mm3 (0.0-0.4); Eosinophils % 1.4 % (0.1-12.0); Hematocrit 38.6 % (37.0-47.0); Hemoglobin 13.5 g/dL (12.2-16.2); Lymphocytes # 1.5 K/mm3 (0.7-4.5); Lymphocytes % 18.4 % (10-50); Mean Corpuscular HGB Conc 35.1 g/dL (31.8-35.4); Mean Corpuscular Hemoglobin 28.8 pg (27.0-31.2); Mean Corpuscular Volume 82.2 fl (81-99); Mean Platelet Volume 8.6 fl (7.4-10.4); Monocytes # 0.3 K/mm3 (0.1-1.0); Monocytes % 3.4 % (1.7-9.3); Neutrophils % 76.5 % (37.0-80.0); Platelet Count 172 K/mm3 (142-424); Red Cell Distribution Width 13.6 % (11.5-17.5); White Blood Count 7.9 K/mm3 (4.8-10.8)
[2021-02-23 05:17] LABS: HIV Screen 4th Generation wRfx Non Reactive (Non Reactive); Hepatitis B Surface Antigen Negative (Negative); Hepatitis C Antibody <0.1 s/co ratio (0.0-0.9)
[2021-02-23 11:43] LABS: Rapid Plasma Reagin Ab Titer Non Reactive (NonRea<1:1)
== END ==
PROVIDERS: Visit Provider Obstetrics & Gynecology
DX: Z34.91 Encounter for supervision of normal pregnancy, unspecified, first trimester (principal)
CPT/HCPCS: 36415; 85025; 86592; 86703; 86762; 86850; 87340; 87380; G0432

== ENCOUNTER 2021-03-12 14:03 | Emergency (ER) | payer MEDICAID, SELFPAY ==
[2021-03-12 14:04] VITALS: BP 136/74; PULSE 100; RESP 16; TEMP 36.6; O2SAT 98; BMI 33.3
[2021-03-12 14:21] LABS: Microscopic, Urine URINE MICROSCOPIC (MICROSCOPIC)
[2021-03-12 14:23] LABS: Appearance,Urine SL CLOUDY (Clear); Bilirubin,Urine Negative (Negative); Blood, Urine Negative (Negative); Color,Urine YELLOW (Yellow); Glucose,Urine (UA) Negative (Negative); Ketones,Urine 3+ (Negative); Leukocyte Esterase,Urine Negative (Negative); Nitrate,Urine Negative (Negative); PH,Urine 7.5 (5.0-8.5); Protein,Urine TRACE (Negative); Urobilinogen,Urine 0.2 EU/dl (0.2)
--- NOTE | 2021-03-12 14:33 | PC.NURSE ---
HEART TONES 160
[2021-03-12 14:36] LABS: Bacteria,Urine Trace /lpf; Squamous Epithelial Cell,Urine Occasional #/hpf (0-5); WBC,Urine Occasional #/hpf (0-3)
--- NOTE | 2021-03-12 14:38 | PC.NURSE ---
PT G 3, P 2, AB 0
[2021-03-12 14:40] LABS: Basophils % 0.4 % (0.1-2.0); Eosinophils # 0.1 K/mm3 (0.0-0.4); Eosinophils % 0.8 % (0.1-12.0); Hemoglobin 13.6 g/dL (12.2-16.2); Lymphocytes # 0.8 K/mm3 (0.7-4.5); Lymphocytes % 8.3 % (10-50); Mean Corpuscular HGB Conc 33.1 g/dL (31.8-35.4); Mean Corpuscular Hemoglobin 27.5 pg (27.0-31.2); Mean Corpuscular Volume 82.9 fl (81-99); Mean Platelet Volume 8.6 fl (7.4-10.4); Monocytes # 0.7 K/mm3 (0.1-1.0); Monocytes % 7.3 % (1.7-9.3); Neutrophils # 8.4 K/mm3 (1.8-7.8); Neutrophils % 83.1 % (37.0-80.0); Platelet Count 199 K/mm3 (142-424); Red Blood Count 4.95 M/mm3 (4.20-5.40); White Blood Count 10.1 K/mm3 (4.8-10.8)
[2021-03-12 14:42] LABS: Alanine Aminotransferase 15 U/L (12-78); Albumin Level 4.4 g/dl (3.5-5.0); Albumin/Globulin Ratio 1.3 (1.1-1.8); Alkaline Phosphatase 67 U/L (38-126); Aspartate Amino Transferase 24 U/L (14-36); Bilirubin,Total 0.6 mg/dl (0.2-1.3); Blood Urea Nitrogen 7 mg/dl (7-17); Calcium 9.2 mg/dl (8.4-10.2); Carbon Dioxide 23 mmol/L (22.0-30.0); Chloride 104 mmol/L (98-107); Creatinine Clearance Estimated 200 mL/min (50-200); Estimated Glomerular Filt Rate 119 ml/min (>60); GFR (African American) 144 ML/MIN (>60); Globulin 3.4 g/dL (1.3-3.2); Glucose 89 mg/dl (74-100); Lipase 33 U/L (23-300); Sodium 135 mmol/L (136-145); Total Protein,Serum 7.8 g/dl (6.3-8.2)
--- NOTE | 2021-03-12 15:13 | HMH.EDGENADL ---
ED Disposition Clinical Impression: Urinary tract infection affecting care of mother in second trimester, antepartum Constipation Qualifiers: Constipation type: slow transit constipation Qualified Code(s): K59.01 - Slow transit constipation Disposition: Home, Self-Care Condition on Discharge: Good Instructions: DI for Acute Abdominal Pain Additional Instructions: Return to the ED for any new or worsening symptoms. Recommend gradual increase in regimen of miralax and milk of magnesia until regular bowel movements. Prescriptions: Magnesium Hydroxide [Milk of Magnesia] 400 mg PO HS 14 Days #5 ml Transmission Status: Pending to [facility] #[id number] Cefdinir [Omnicef 300mg Capsule] 300 mg PO BID #20 cap Transmission Status: Pending to [facility] #[id number] Referrals: Porsha Mullins PA [Primary Care Provider] - Time of Disposition: 17:45 - Critical Care Critical Care Time: No Attestation: On 03/12/21, the high probability of a clinically significant, sudden or life threatening deterioration of the following system(s) required my full and direct attention, intervention and personal management. The time I documented below is in addition to time spent performing reported procedures but includes the following listed in this critical care notation. Medical Decision Making - Medical Records Medical records reviewed: Yes: I reviewed the patient's medical records. - Edwin Inquiry Pt receiving controlled substance: No Vital Signs: 03/12/21 14:04 03/12/21 15:40 Temperature 98 F Temperature Source Oral Pulse Rate 67 Pulse Rate [Radial] 100 H Respiratory Rate 16 20 Blood Pressure 121/56 L Blood Pressure [Right Arm] 136/74 Blood Pressure Mean [Right Arm] 94 Blood Pressure Position [Right Arm] Sitting 02 Sat by Pulse Oximetry 98 99 Oxygen Delivery Method Room Air - Lab Data Lab Results 03/12/21 14:05: Urine Color Yellow, Urine Appearance Sl cloudy, Urine pH 7.5, Ur Specific [place] 1.020, Urine Protein Trace, Urine Glucose (UA) Negative, Urine Ketones 3+, Urine Blood Negative, Urine Nitrate Negative, Urine Bilirubin Negative, Urine Urobilinogen 0.2, Ur Leukocyte Esterase Negative, Urine RBC None, Urine WBC Occasional, Ur Squamous Epith Cells Occasional, Urine Bacteria Trace 03/12/21 14:30: WBC 10.1, RBC 4.95, Hgb 13.6, Hct 41.0, MCV 82.9, MCH 27.5, MCHC 33.1, RDW 13.0, Plt Count 199, MPV 8.6, Neut % (Auto) 83.1 H, Lymph % (Auto) 8.3 L, [place] % (Auto) 7.3, Eos % (Auto) 0.8, Baso % (Auto) 0.4, Neut # (Auto) 8.4 H, Lymph # (Auto) 0.8, Bill[place] # (Auto) 0.7, Eos # (Auto) 0.1, Baso # (Auto) 0.0 03/12/21 14:30: Sodium 135 L, Potassium 4.0, Chloride 104, Carbon Dioxide 23, Anion Gap 12.0, BUN 7, Creatinine 0.60, Estimated Creat Clear 200, Estimated GFR 119, Est GFR ( Amer) 144, Glucose 89, Calcium 9.2, Total Bilirubin 0.6, AST 24, ALT 15, Alkaline Phosphatase 67, Total Protein 7.8, Albumin 4.4, Globulin 3.4 H, Albumin/Globulin Ratio 1.3, Lipase 33 Result diagrams: 03/12/21 14:30 03/12/21 14:30 Orders (Tests/Meds): ED MEDICATIONS Discontinued Medications Generic Name Dose Route Start Last Admin Trade Name Freq PRN Reason Stop Dose Admin Sodium Chloride 1,000 mls @ 999 mls/hr 03/12/21 15:00 03/12/21 15:21 Sod Chlor 0.9% 1000ml Bag IV 03/12/21 16:00 999 mls/hr .Q1H1M LUANNE Administration Promethazine HCl 25 mg 03/12/21 15:44 03/12/21 15:52 Promethazine 25mg Tablet PO 03/12/21 15:45 25 mg ONCE ONE Administration General Adult HPI - General Chief complaint: Abdominal Pain Stated complaint: 15 wks, abd/back pain, nausea Time Seen by Provider: 03/12/21 14:15 Mode of Arrival: Ambulatory Source of Information: Patient Limitations: No Limitations Description of Symptoms (Recalled from ER Triage Doc. by RN): TO ED PER [facility] PT SENT BY RESTAURANT ASSISTANT FOR EVAL. PT APPROX 15WEEKS PREG C/O ABD AND LOWER BACK PAIN X 2 DAYS. PT STATES 2 DAYS AGO MOVING AND HEAVY LIFTIN
[2021-03-12 15:40] VITALS: BP 121/56; PULSE 67; RESP 20; O2SAT 99
[2021-03-12 17:50] VITALS: BP 112/62; PULSE 98; RESP 16; TEMP 36.6; O2SAT 98
== END 2021-03-12 17:52 | disposition home or self-care (01) ==
PROVIDERS: Emergency Provider Student in an Organized Health Care Education/Training Program; PCP Physician Assistant
DX: O23.12 Infections of bladder in pregnancy, second trimester (principal); N30.00 Acute cystitis without hematuria; Z3A.15 15 weeks gestation of pregnancy; K59.01 Slow transit constipation
CPT/HCPCS: 80053; 81001; 83690; 85025; 96365; 96375; 99282

== ENCOUNTER → 2021-07-12 14:04 | Outpatient (CLI) | payer MEDICAID, SELFPAY ==
--- NOTE | 2021-07-12 14:04 | US_ITS ---
PROCEDURE INFORMATION: Exam: US Pelvis, Transvaginal Exam date and time: 07/12/2021 2:04 PM Age: 31 years old Clinical indication: Menstruation abnormalities; Excessive menstruation; With irregular cycle; Patient HX: Grant ramirez; Additional info: Bleeding TECHNIQUE: Imaging protocol: Real-time transvaginal pelvic ultrasound with image documentation. Transvaginal imaging was used for better evaluation of the endometrium, adnexa, and/or cervix. COMPARISON: No relevant recent comparison exams are available. FINDINGS: Uterus: UTERUS measures approximately 8.8 x 4.2 x 5.1 cm. Endometrial thickness is approximately 9 mm. Right ovary/adnexa: RIGHT OVARY measures approximately 5.9 mL and demonstrates normal color flow. Multiple small follicles. Left ovary/adnexa: LEFT OVARY measures approximately 7.5 mL and demonstrates normal color flow. Multiple small follicles. Urinary bladder: Unremarkable. Intraperitoneal space: No discernible adnexal mass or abnormality. No free fluid within the pelvis. IMPRESSION: Normal pelvic sonogram.
== END ==
PROVIDERS: PCP Physician Assistant; Visit Provider Obstetrics & Gynecology
DX: N93.9 Abnormal uterine and vaginal bleeding, unspecified (principal)
CPT/HCPCS: 76830

== ENCOUNTER → 2021-09-21 16:33 | Outpatient (CLI) | payer MEDICAID, SELFPAY | PROVIDERS: PCP Physician Assistant; Visit Provider Nurse Practitioner Family | DX: Z20.822 Contact with and (suspected) exposure to COVID-19 (principal) | CPT/HCPCS: C9803; U0003; U0005 ==

== ENCOUNTER → 2021-10-22 16:03 | Outpatient (CLI) | payer MEDICAID, SELFPAY ==
[2021-10-22 16:46] LABS: Basophils # 0.1 K/mm3 (0-0.2); Eosinophils # 0.1 K/mm3 (0.0-0.4); Eosinophils % 1.4 % (0.1-12.0); Hematocrit 41.1 % (37.0-47.0); Hemoglobin 13.2 g/dL (12.2-16.2); Lymphocytes # 1.7 K/mm3 (0.7-4.5); Lymphocytes % 21.5 % (10-50); Mean Corpuscular HGB Conc 32.2 g/dL (31.8-35.4); Mean Corpuscular Hemoglobin 27.1 pg (27.0-31.2); Mean Corpuscular Volume 84.1 fl (81-99); Mean Platelet Volume 9.5 fl (7.4-10.4); Monocytes # 0.3 K/mm3 (0.1-1.0); Monocytes % 4.2 % (1.7-9.3); Neutrophils # 5.6 K/mm3 (1.8-7.8); Neutrophils % 71.9 % (37.0-80.0); Platelet Count 222 K/mm3 (142-424); Red Blood Count 4.88 M/mm3 (4.20-5.40); Red Cell Distribution Width 15.5 % (11.5-17.5); White Blood Count 7.8 K/mm3 (4.8-10.8)
[2021-10-22 17:41] LABS: Alanine Aminotransferase 20 U/L (12-78); Albumin Level 4.9 g/dl (3.5-5.0); Albumin/Globulin Ratio 1.6 (1.1-1.8); Alkaline Phosphatase 63 U/L (38-126); Anion Gap 15.2 mEq/L (5-15); Aspartate Amino Transferase 30 U/L (14-36); Bilirubin,Total 0.5 mg/dl (0.2-1.3); Blood Urea Nitrogen 12 mg/dl (7-17); Calcium 9.3 mg/dl (8.4-10.2); Carbon Dioxide 24 mmol/L (22.0-30.0); Chloride 104 mmol/L (98-107); Estimated Glomerular Filt Rate 99 ml/min (>60); GFR (African American) 120 ML/MIN (>60); Glucose 94 mg/dl (74-100); Potassium 4.2 mmoL/L (3.5-5.1); Sodium 139 mmol/L (136-145); Total Protein,Serum 7.9 g/dl (6.3-8.2)
[2021-10-22 18:07] LABS: HCG,Quantitative < 2 mIU/ml (0-5.42)
[2021-10-22 18:40] LABS: Amphetamine/Metha Screen,Urine Negative ng/ml (<1000); Barbiturates Screen,Urine Negative ng/ml (<200)
[2021-10-22 18:41] LABS: Benzodiazepines Screen,Urine Negative ng/ml (<200)
[2021-10-22 18:42] LABS: Cannabinoid Screen,Urine Negative ng/ml (<50); Cocaine Screen,Urine Negative ng/ml (<300)
[2021-10-22 18:43] LABS: Methadone Screen,Urine Negative ng/ml (<300); Opiate Screen,Urine Positive ng/ml (<300)
[2021-10-22 18:44] LABS: Phencyclidine Screen,Urine Negative ng/ml (<25)
== END ==
PROVIDERS: Visit Provider Obstetrics & Gynecology
DX: Z01.812 Encounter for preprocedural laboratory examination (principal); Z11.52 Encounter for screening for COVID-19; R10.2 Pelvic and perineal pain; N83.201 Unspecified ovarian cyst, right side
CPT/HCPCS: 36415; 80053; 80305; 84702; 85025; C9803; U0003; U0005

== ENCOUNTER 2021-10-24 08:19 | Day surgery (SDC) | payer MEDICAID, SELFPAY ==
[2021-10-23 07:10] VITALS: BMI 30.7
[2021-10-23 11:43] LABS: HCG Qualitative, Serum Negative (Negative)
[2021-10-24] VITALS (13 sets, daily range): BP systolic 107–143; BP diastolic 54–91; PULSE 79–100; RESP 12–19; TEMP 36.3–37.1; O2SAT 97–100
--- NOTE | 2021-10-24 09:41 | HMH.ANESCL ---
[facility] Anesthesia Checklist - Patient Identification Patient Identification: Arm Band - Structural Data Admitted From: Home Planned Operative Procedure/s: Diagnostic Laparoscopy Consent for Planned Operative Procedure(s) Verified: Yes Verified Documents: Surgical Consent, History and Physical - NPO Status Verified Time NPO: 00:00 - Additional verifications Anesthesia Reactions: No Hx Blood Transfusions: Yes Blood Transfusion Reaction: No - Airway Assessment C-Spine Mobility Assessed: Yes (mp2) TMJ Mobility Assessed: Yes Dentition: Good Dentition - Neurological Assessment Level of Consciousness: Awake, Alert - Anesthesia Plan Anesthesia Risk discussed: Yes Anesthesia Plan: Verified ASA Class: II Anesthesia Type: General [facility] History I have reviewed the patient's past medical history: Yes Medical History: Reports:: Deep Vein Thrombosis, Seizures (at age 9) Denies:: Cancer, Diabetes Mellitus Type 1, Diabetes Mellitus Type 2, Internal Pacemaker, MRSA *Have you ever received a pneumonia vaccine?: No *Have you received a flu vaccine this season?: No Other Medical History: Reports: Other. Denies: Anemia, Blood Transfusion Reaction Anesthesia experience/problems:: nac Laterality Cases: Bilateral: Other Other Surgeries: Yes: Cholecystectomy, , Dilation and Curettage, Other. No: Pacemaker Amputation: No Fractures: No - *Social History Last grade of school completed: 9th or 10th Smoking Status: Never smoker Alcohol Intake: current Alcohol Intake Frequency:: holidays/special occasions only Substance Use Type: denies use *Occupational Status:: employed Housing: house Household Members: significant other, children *Travel in the last 8 weeks: None Family Hx:: Diabetes, Heart Attack, Stroke
--- NOTE | 2021-10-24 10:30 | SUR.PREOP ---
PT ASSISTED TO BATHROOM AND BACK TO BED. WARM BLANKET GIVEN TO PT. S.O. AT BEDSIDE. NO NEEDS OR CONCERNS VOICED.
--- NOTE | 2021-10-24 13:23 | HMH.ANESI ---
[facility] Anesthesia Record Part I Intake, IV Amount: 600 Estimated blood loss (mL): 10 Urine output (mL): 0 Blood Pressure: 129/82 SaO2: 100 Pulse Rate: 90 Respiratory Rate: 19 Temperature: 98.1 F Patient is:: Awake Stable to PACU at:: 13:20
--- NOTE | 2021-10-24 14:13 | SUR.PHASEI ---
1402 Detailed report called to Derick Keith RN [id number] Pt transported via stretcher to post op. Pt is stable and left in care of Derick Keith RN at bedside
--- NOTE | 2021-10-24 14:30 | P.OP_ITS ---
Date of procedure: 10/25/21 Pre-op Diagnosis:: 1. Pelvic pain 2. Right adnexal mass 3. History of cornual with uterine rupture Post-op Diagnosis:: 1. Pelvic pain 2. Right adnexal mass 3. History of cornual with uterine rupture 4. Extensive abdominal/pelvic adhesions Procedure performed:: Diagnostic laparoscopy I&D right ovarian cyst Lysis of adhesions Surgeon:: Princess Soler MD SPARKER AND PATCHER:: Ginger Samuels Anesthesia: GETA Estimated blood loss (mL): 10 Operative findings:: enlarged right ovarian cyst, 6cm, densely adhesed to right pelvic sidewall large filmy pelvic adhesions between bowel and anterior abdominal wall uterus densely adhesed to right pelvic sidewall; right aspect of uterus (cornua) unable to be adequately visualized due to adhesions grossly normal appearing left ovary and fallopian tube Operative note:: The patient was taken to the operating room and general anesthesia was administ ered. She was prepped/draped in lithotomy position. A uterine manipulator was placed without difficulty. Gloves were changed and attention was turned to the abdomen. A 5mm skin incision was made in the umbilical fold and the verees needle was inserted through the peritoneum and into the abdominal cavity in standard fashion. The abdomen was insufflated with CO2 gas. A 5mm non-bladed trocar was inserted directly into the abdominal cavity and appropriate placement was confirmed with the laparoscope. No intra-abdominal injuries occurred during entry into the abdominal cavity, as confirmed visually with the laparoscope. Extensive adhesions in the lower pelvis precluded normal placement of a suprapubic trocar at this time, so a 5mm skin incision was made in the LLQ and a 5mm nonbladed trocar was inserted under direct visualization. The harmonic scalpel was used through the LLQ trocar to dissect the bowel adhesions. At this time, a 10mm skin incision was made 2cm above the pubic bone in the midline, and a 10mm nonbladed trocar was inserted under direct visualization. The abdominal and pelvic adhesions were further dissected using the ligasure. The uterus was not able to be liberated from the right pelvic sidewall, using either sharp or blunt dissection. The right side of the uterus could not be visualized in order to assess the extent of the damage caused by previous cornual ectopic . The right ovary was grossly enlarged, 6cm, and densely adhesed to the right pelvic sidewall. The bowel was also adhesed to the mass, making it impossible to discern if the adnexa had been torsed. Because of the limited mobilization achieved with dissection of the right adnexa, the cystic portion of the mass was identified and a linear incision was made with the harmonic scalpel in order to drain the fluid. Copious clear fluid was drained from the cyst and aspirated from the abdomen and pelvis. Talisha was placed over the areas of adhesion dissection. The abdomen was then evacuated of gas and all trocars removed. The skin incisions were closed with 4-0 monocryl. The uterine manipulator was removed. All sponge/lap/needle/instrument counts correct. Total EBL: 10 cc. The patient was taken out of lithotomy position, extubated and taken to the PACU in stable condition. Condition: stable Disposition: PACU Specimens:: none Complications:: none
--- NOTE | 2021-10-25 09:50 | HMH.ANESII ---
[facility] Anesthesia Record Part II Discharge Time: 14:05 Destination: Surgical Day Care (OP Surgery) PACU nurse assessment reviewed?: Yes Patient Condition:: Good Anesthesia Complications:: None Swallowing reflex intact?: Yes Cyanosis?: No Blood Pressure: 116/67 Pulse Rate: 82 Temperature: 97.9 F Mental Status: Alert & Oriented Pain level:: 4 Nausea and/or vomitting:: None Intake, IV Amount: 0
[2021-10-25 09:51] VITALS: BP 116/67; PULSE 82; TEMP 36.6
== END 2021-10-24 14:49 | disposition home or self-care (01) ==
LOC: OR 08:20
PROVIDERS: PCP Physician Assistant; Visit Provider Obstetrics & Gynecology
PROC: (CPT 49320; principal; 2021-10-24 09:45)
DX: N83.291 Other ovarian cyst, right side (principal); N99.4 Postprocedural pelvic peritoneal adhesions; N73.6 Female pelvic peritoneal adhesions (postinfective); R19.09 Other intra-abdominal and pelvic swelling, mass and lump
CPT/HCPCS: 49322; 58660; 84703; 96374; J0131; J2405

== ENCOUNTER 2021-12-27 11:11 | Outpatient (RCR) | payer OTHER, SELFPAY ==
--- NOTE | 2021-12-27 11:53 | HMH.PTOPEV ---
PT Outpatient Evaluation Rehab PT Outpatient Evaluation Start: 12/27/21 11:43 Freq: Status: Active Protocol: Document 12/27/21 11:43 SARAHANGELO (Rec: 12/27/21 11:53 SARAHREYESLUIS M [id number]) Electronically Signed By Javi Saavedra, PT 12/27/21 11:43 Outpatient Therapy Subjective History Subjective History Patient is a 31 year old female presenting to outpatient PT with reports of acute L knee pain starting . Initial injury occurred while sweeping at work with a a CKC twisting motion that caused a pop. Suspect possible meniscus tear . This is a workmans comp case . Comorbidities include hx of multiple abdominal surgeries secondary to mis-carriage. Chief Complaint Pain,Stiff,Catches/Locks, Weakness Symptom Type Sharp,Burning Symptoms Relieved By Rest/Positioning,OTC Meds Prior Functional Limitations None Current Functional Limitations Housework,Standing,Squatting, Recreation Activity,Walking, Stairs,Bending/Stooping Symptom Description Intermittent Level of pain today (0-10) 3 Pain scale - at its best (0-10) 0 Pain scale - at its worst (0-10) 8 Hip/Knee Eval Gait Observation General Gait Pattern Observation Antalgic Gait,Decrease Weight Bear (L) Palpation Tenderness left Knee Palpation Finding Tenderness Knee Palpation Overall Comment patellar tendon, medial joint line 3/4 MMT Hip Flexion Strength Grade 4 Good Hip Abduction Strength Grade 4 Good Hip Adduction Strength Grade 4- Good- Hip Extension Strength Grade 4- Good- Hip External Rotation Strength Grade 4- Good- Hip Internal Rotation Strength Grade 4- Good- Knee Extension Strength Grade 4 Good Knee Flexion Strength Grade 4 Good ROM Hip ROM Reason Not Measured Within Functional Limits Knee Extension Active Range of Motion ( -4 degrees) Knee Flexion Active Range of Motion ( 129 degrees) Special Tests Knee Anterior Corin Test Negative Left Knee Pivot Shift Test Negative Left Knee Valgus Stress Test Negative Left Knee Varus Stress Test Negative Left Knee Margo Test Positive Left Outpatient Therapy Assessment Impairments Problems/Impairmments Palpation Tenderness,Impaired Rang
== END 2021-12-27 11:15 | disposition home or self-care (01) ==
LOC: PT 11:11
PROVIDERS: Visit Provider Emergency Medicine
DX: M25.562 Pain in left knee (principal)
CPT/HCPCS: 97163

== ENCOUNTER → 2021-12-30 14:21 | Outpatient (CLI) | payer OTHER, SELFPAY ==
--- NOTE | 2021-12-30 14:21 | MR_ITS ---
FINAL REPORT CLINICAL HISTORY: left knee pain. twisted knee [id number] ago and knee now pops. medial sided knee pain. FINDINGS: Multiplanar MR imaging of the right knee was performed without contrast. There is medial meniscal degeneration without evidence of a tear. The lateral meniscus appears intact. The anterior and posterior cruciate ligaments are intact. The medial collateral ligament and lateral ligamentous complex are intact. There is mild patellar tendinitis. There is no evidence of fracture. There is an osteochondral lesion in the anterior aspect of the lateral femoral condyle which measures 7 mm in transverse dimension. There is surrounding bone marrow edema. A small joint effusion is seen. The musculature is intact. There is a small popliteal cyst. IMPRESSION: Mild patellar tendinitis. Osteochondral lesion in the anterior aspect of the lateral femoral condyle with surrounding bone marrow edema. Medial meniscal degeneration without evidence of tear. Reviewed, Interpreted and Dictated by Jigar Berumen III, MD Transcribed by Windy Vazquez Authenticated by Jigar Berumen III, MD on 12/30/2021 04:24:[address] [facility]
== END ==
PROVIDERS: PCP Physician Assistant; Visit Provider Emergency Medicine
DX: M25.562 Pain in left knee (principal)
CPT/HCPCS: 73721

== ENCOUNTER → 2022-01-28 13:02 | Outpatient (CLI) | payer OTHER, SELFPAY ==
--- NOTE | 2022-01-28 13:13 | XR_ITS ---
FINAL REPORT CLINICAL HISTORY: knee pain FINDINGS: 4 views of the left knee were obtained. There is no acute fracture or dislocation. The joint spaces are intact. The soft tissues are unremarkable. IMPRESSION: No acute process. Reviewed, Interpreted and Dictated by Jigar Berumen III, MD Transcribed by Mansoor Hedrick Authenticated and [facility]
== END ==
PROVIDERS: PCP Emergency Medicine; Visit Provider Orthopaedic Surgery
DX: M25.562 Pain in left knee (principal)
CPT/HCPCS: 73564

== ENCOUNTER → 2022-04-29 14:17 | Outpatient (CLI) | payer OTHER, SELFPAY ==
--- NOTE | 2022-04-29 14:21 | XR_ITS ---
FINAL REPORT CLINICAL HISTORY: left knee pain COMPARISON: January 28, 2022 FINDINGS: LEFT KNEE: Three views of the left knee were obtained. There is no acute fracture or dislocation. Visualized joint spaces are normally aligned. There is no joint effusion. Soft tissues are unremarkable. IMPRESSION: No acute bony abnormality. Reviewed, Interpreted and Dictated by Jigar Berumen III, MD Transcribed by Mansoor Hedrick Authenticated and [facility]
== END ==
PROVIDERS: PCP Emergency Medicine; Visit Provider Orthopaedic Surgery
DX: M25.562 Pain in left knee (principal)
CPT/HCPCS: 73562

== ENCOUNTER → 2022-09-04 15:27 | Outpatient (CLI) | payer OTHER, SELFPAY ==
--- NOTE | 2022-09-04 15:32 | MR_ITS ---
FINAL REPORT TECHNIQUE: Multiplanar and multisequence imaging the left knee was obtained without contrast. CLINICAL HISTORY: left knee pain. KNEE INSTABILITY. Pain when walking. COMPARISON: 12/30/2021 FINDINGS: Bones: There is again seen a subchondral T2 signal abnormality in the medial tibial plateau which has increased from the prior exam. This is likely degenerative. There is no acute fracture. Remaining bone marrow signal intensity is preserved. There is chondromalacia patella of the lateral patellar facet. Menisci: The lateral meniscus is intact. There is intrameniscal degeneration of the posterior horn of the medial meniscus without tear. Ligaments: No cruciate or collateral ligament tear is present. Tendons/Muscles: The quadriceps and patellar tendons are within normal limits. The biceps femoris tendon and iliotibial tract are intact. The popliteus tendon is normal. Other: There is no joint effusion. Remaining soft tissues are normal. IMPRESSION: Slight worsening of subchondral degenerative change in the medial tibial plateau. No meniscal tear. Meniscal degeneration of the medial meniscus. Reviewed, Interpreted and Dictated by Jennifer Garcia MD Transcribed by Windy Vazquez Authenticated and . [facility]
== END ==
PROVIDERS: PCP Physician Assistant; Visit Provider Orthopaedic Surgery
DX: M25.562 Pain in left knee (principal); M24.10 Other articular cartilage disorders, unspecified site
CPT/HCPCS: 73721

== ENCOUNTER → 2022-11-21 12:46 | Outpatient (CLI) | payer OTHER, SELFPAY ==
[2022-11-21 12:52] LABS: Microscopic, Urine URINE MICROSCOPIC (MICROSCOPIC)
[2022-11-21 13:06] LABS: Appearance,Urine CLEAR (Clear); Bilirubin,Urine Negative (Negative); Blood, Urine TRACE-L (Negative); Color,Urine YELLOW (Yellow); Glucose,Urine (UA) Negative (Negative); Ketones,Urine Negative (Negative); Leukocyte Esterase,Urine TRACE (Negative); Nitrate,Urine Negative (Negative); Protein,Urine Negative (Negative); Urobilinogen,Urine 0.2 EU/dl (0.2)
[2022-11-21 13:08] LABS: Urine Pregnancy, HCG Qual. Negative (Negative)
[2022-11-21 13:13] LABS: Basophils % 0.4 % (0.1-2.0); Eosinophils # 0.1 K/mm3 (0.0-0.4); Eosinophils % 1.4 % (0.1-12.0); Hematocrit 44.4 % (37.0-47.0); Hemoglobin 14.3 g/dL (12.2-16.2); Lymphocytes % 23.6 % (10-50); Mean Corpuscular HGB Conc 32.1 g/dL (31.8-35.4); Mean Corpuscular Hemoglobin 27.2 pg (27.0-31.2); Mean Corpuscular Volume 84.6 fl (81-99); Mean Platelet Volume 8.9 fl (7.4-10.4); Monocytes # 0.4 K/mm3 (0.1-1.0); Monocytes % 4.3 % (1.7-9.3); Neutrophils # 5.9 K/mm3 (1.8-7.8); Neutrophils % 70.3 % (37.0-80.0); Platelet Count 196 K/mm3 (142-424); Red Blood Count 5.24 M/mm3 (4.20-5.40); Red Cell Distribution Width 13.5 % (11.5-17.5); White Blood Count 8.4 K/mm3 (4.8-10.8)
[2022-11-21 13:24] LABS: Bacteria,Urine Trace /lpf; WBC,Urine Occasional #/hpf (0-3)
[2022-11-21 14:03] LABS: Chloride 102 mmol/L (98-107); Potassium 3.8 mmoL/L (3.5-5.1); Sodium 138 mmol/L (136-145)
[2022-11-21 14:05] LABS: Blood Urea Nitrogen 14 mg/dl (7-17); Estimated Glomerular Filt Rate 84 ml/min (>60); GFR (African American) 102 ML/MIN (>60)
[2022-11-21 14:06] LABS: Alanine Aminotransferase 19 U/L (12-78); Albumin Level 4.5 g/dl (3.5-5.0); Albumin/Globulin Ratio 1.6 (1.1-1.8); Alkaline Phosphatase 60 U/L (38-126); Anion Gap 11.8 mEq/L (5-15); Aspartate Amino Transferase 24 U/L (14-36); Bilirubin,Total 0.5 mg/dl (0.2-1.3); Calcium 8.8 mg/dl (8.4-10.2); Carbon Dioxide 28 mmol/L (22.0-30.0); Globulin 2.9 g/dL (1.3-3.2); Glucose 87 mg/dl (74-100); Total Protein,Serum 7.4 g/dl (6.3-8.2)
== END ==
PROVIDERS: PCP Physician Assistant; Visit Provider Orthopaedic Surgery
DX: Z01.818 Encounter for other preprocedural examination (principal); M25.562 Pain in left knee
CPT/HCPCS: 36415; 80053; 81001; 81025; 85025

== ENCOUNTER 2022-11-26 07:30 | Day surgery (SDC) | payer OTHER, SELFPAY ==
[2022-11-21 13:35] VITALS: BMI 32.4
[2022-11-26] VITALS (10 sets, daily range): BP systolic 108–134; BP diastolic 58–74; PULSE 68–85; RESP 16–18; TEMP 36.1–43; O2SAT 91–100
--- NOTE | 2022-11-26 08:09 | P.PN_ITS ---
[facility] Disclaimer: The information contained in this section may have been updated after the patient was seen, as this information can be updated by other users. Medical History No significant past medical history Surgical History History of cholecystectomy Hx of hand surgery Family History Other Family history of cancer Family history of diabetes mellitus type II Family history of myocardial infarction Family history of stroke Social History Smoking Status: Never smoker second hand exposure: No alcohol intake: never substance use type: denies use current occupational status: employed Travel in the last 8 weeks: None household members: spouse and children housing: house marital status: education level: high school service: No current occupation: [employer] current occupational exposures/hazards: No caffeine: Yes special ben needs: No agree to transfusion: No do you feel safe at home: Yes victim of physical abuse: No victim of emotional abuse: No victim of sexual abuse: No would you like helpful sources: No [facility] Anesthesia Checklist Patient Identification Patient Identification: Arm Band and Verbal (Name & ) Structural Data Admitted From: Home Planned Operative Procedure/s: Knee scope Consent for Planned Operative Procedure(s) Verified: Yes NPO Status Verified Time NPO: 00:00 Chart Verification Results Verified: HCG Additional verifications Anesthesia Reactions: No Hx Blood Transfusions: Yes Blood Transfusion Reaction: No Airway Assessment C-Spine Mobility Assessed: Yes TMJ Mobility Assessed: No Dentition: Good Dentition Neurological Assessment Level of Consciousness: Awake Hx Seizures: Yes Numbness or tingling in extremities: No Anesthesia Plan Anesthesia Risk discussed: Yes Anesthesia Plan: Verified ASA Class: II Anesthesia Type: General
--- NOTE | 2022-11-26 10:40 | P.PNANES_ITS ---
[facility] Anesthesia Record Part I Anesthesia Record I Intake, IV Amount: 700 Estimated blood loss (mL): 5 Urine output (mL): 0 Blood Products used (#): none Blood Pressure: 132/73 SaO2: 91 Pulse Rate: 68 Respiratory Rate: 16 Temperature: 97 F Patient is:: Drowsy and Stable Stable to PACU at:: 10:40
--- NOTE | 2022-11-26 10:43 | EXP.OP.NOTE ---
Date of procedure: 11/26/22 Pre-op Diagnosis:: Left knee chondral lesion medial femoral condyle Post-op Diagnosis:: 1. Left knee chondral lesion medial femoral condyle 2. left knee intra-articular loose bodies cartilage Procedure performed:: Left knee arthroscopy with chondroplasty medial femoral condyle and removal intra-articular loose bodies Surgeon:: Eduardo Quinones DO UNIVERSITY COUNSELOR:: Severiano Vazquez Anesthesia: GETA Estimated blood loss (mL): 0 Clinical Note:: 32-year-old female with work-related injury to her left knee. Had chondral lesions presented today for possible chondroplasty versus microfracture versus bio cartilage grafting. Operative findings:: Left knee chondral lesion medial femoral condyle without complete subchondral involvement. Loose frayed flaps of cartilage medial femoral condyle kissing lesion from loose flaps on the medial tibial plateau. Multiple intra-articular loose bodies cartilage Operative note:: Patient was identified preoperatively. Left knee was marked with a yes and my initials. Transported operative suite. Placed upon the operating bed. General anesthesia was ministered airway secured. Left lower extremity prepped and draped in normal sterile fashion within the knee narayan. Once prepped and draped final operative timeout performed to identify proper patient procedure and extremity. Everyone involved the case agreed. No counter indications beginning. Did receive preoperative antibiotics. Marking pen was used to mitzi the bony landmarks of the knee and standard portal sites. Esmarch was used to exsanguinate extremity pneumatic tourniquet inflated to 300 mmHg. Standard anterior lateral portal was made blunt with trocar was placed in the patellofemoral joint exchange with a camera and diagnostic arthroscopy began. Swept directly into the medial joint line where the anterior medial portal was made under direct visualization. This was switched with a probe. Upon probing the medial femoral condyle there were multiple large flaps of cartilage that were present. There is also evidence of an intra-articular loose body which was large in the medial joint space. These chondral flaps came from the medial femoral condyle where there was some scarring present as well. The lesion did not go straight to the subchondral bone. And these large flaps were then debrided with a sucker shaver intra-articular loose bodies also removed through the sucker shaver. It was reprobed and decision was made that chondroplasty was adequate in this situation to remove these large flaps which was the likely cause of the mechanical symptoms in the knee. There is also evidence of a kissing lesion where these chondral flaps are present on the tibial plateau without complete subchondral exposure. Although the cartilage was not normal and healthy there is still cartilage in place on the medial femoral condyle under the cartilage flaps. Therefore decision to perform chondroplasty and spite of bio cartilage grafting was made. This is the likely cause of her mechanical symptoms. Tensions brought to the intercondylar notch the ACL was seen and intact. Attention was then brought into the lateral joint line within the lateral joint line there were several intra-articular loose bodies which were cartilage likely from the medial femoral condyle. These loose bodies were removed through the sucker shaver. Swept into the medial lateral gutters no pathology was seen there back in the patellofemoral joint where there is some very light where on the patella without any loose giovany cartilage. Final drive-through of the knee showed no more loose bodies or pathology. Camera was removed. Joint was drained. Local anesthesia filtrated the portal sites. Skin closed with nylon stitch. Sterile dressing placed from toe to thigh. Patient waken from anesthesia and taken recovery in stable condition. Tourniquet time (min): 18 Condition: stable Disposition: PACU Complicati
--- NOTE | 2022-11-27 11:14 | P.PNANES_ITS ---
[facility] Anesthesia Record Part II Anesthesia Record Part II Discharge Time: 11:10 Destination: Surgical Day Care (OP Surgery) PACU nurse assessment reviewed?: Yes Patient Condition:: Good Anesthesia Complications:: None Swallowing reflex intact?: Yes Cyanosis?: No Blood Pressure: 128/7 Pulse Rate: 70 Temperature: 97.3 F Mental Status: Alert & Oriented Pain level:: 0 Nausea and/or vomitting:: None Intake, IV Amount: 0
[2022-11-27 11:15] VITALS: BP 128/7; PULSE 70; TEMP 36.3
== END 2022-11-26 11:45 | disposition home or self-care (01) ==
PROVIDERS: PCP Physician Assistant; Visit Provider Orthopaedic Surgery
PROC: (CPT 29870; principal; 2022-11-26 09:00)
DX: M23.42 Loose body in knee, left knee (principal); M25.862 Other specified joint disorders, left knee; M25.761 Osteophyte, right knee
CPT/HCPCS: 29879; 96374; J2405

== ENCOUNTER → 2022-12-18 12:34 | Outpatient (CLI) | payer OTHER, MEDICAID, SELFPAY ==
--- NOTE | 2022-12-18 12:52 | XR_ITS ---
FINAL REPORT CLINICAL HISTORY: left knee pain COMPARISON: 04/29/2022 FINDINGS: Two views of the left knee were obtained. There is no acute fracture or dislocation. There is mild narrowing of the medial compartment joint space. The bones are well mineralized. There is no soft tissue abnormality. IMPRESSION: Mild narrowing medial compartment joint space. No acute bony abnormality. Reviewed, Interpreted and Dictated by Abisai Chester MD Transcribed by Stacy Mattson Authenticated and [facility]
== END ==
PROVIDERS: PCP Physician Assistant; Visit Provider Orthopaedic Surgery
DX: M25.562 Pain in left knee (principal)
CPT/HCPCS: 73560

== ENCOUNTER 2023-09-17 14:12 | Emergency (ER) | payer MEDICAID, SELFPAY ==
[2023-09-17 14:12] VITALS: BP 120/83; PULSE 69; RESP 20; TEMP 36.7; O2SAT 99; BMI 37.3
--- NOTE | 2023-09-17 14:14 | ED_ITS ---
Discharge Plan Disposition Patient Disposition: Home, Self-Care Prescriptions Prescriptions: No Action ondansetron 4 mg tablet,disintegrating 4 mg PO Q6H PRN ibuprofen 800 mg tablet See Rx Instructions .ROUTE .COMPLEX Qty: 90 0RF Dose Instruction: TAKE 1 TABLET BY MOUTH THREE TIMES DAILY NEEDED FOR PAIN Rx Instructions: TAKE 1 TABLET BY MOUTH THREE TIMES DAILY NEEDED FOR PAIN Referrals Follow up/Referrals: Porsha Mullins PA [Primary Care Provider] - See instructions Activity Restrictions/Add. Instructions Additional Instructions/Restrictions: Call your family doctor to establish care for this visit to the emergency department and schedule follow-up within 48 hours to ensure improvement. If you have any worsening of your condition or any other concerning signs or symptoms, return to the emergency department or your primary care doctor for further evaluation. Clinical Impressions Clinical Impression: Enteritis Stand Alone Forms Stand Alone Forms: Work/School Release Instructions Patient Instructions: DI for Acute Abdominal Pain Discharge ED Provider: Enmanuel Powell General Adult HPI <SHELIA Paniagua - Last Filed: 09/17/23 19:07> General Chief complaint: Abdominal Pain Stated complaint: Pain in R side Time Seen by Provider: 09/17/23 14:14 History of Present Illness HPI narrative: Patient is a 33-year-old female presents with right lower quadrant pain since Thursday. Patient does have a history of previous ruptured ectopic patient was at work and felt acute onset of right lower quadrant pain nausea but no chest pain shortness of breath fever chills hemoptysis hematochezia melena. She had to leave work and was evaluated at [facility] apparently with CAT scan and blood work. Patient states that she was told that she has a stone in her appendix and an ulcer she was given Toradol and discharged home with instructions to follow-up with PCP. Pain has not abated since that day and has now become significant and persistent. Additionally, the patient started having loose stools on Thursday prior that has continued as well. patient saw her PCP today who contacted general surgery who recommended that she be evaluated in the ER. Hence she presented here Related Data Home Medications Medication Instructions Recorded Confirmed ondansetron 4 mg disintegrating 4 mg PO Q6H PRN 09/17/23 09/17/23 tablet Previous Rx's Medication Instructions Recorded ibuprofen 800 mg tablet See Rx Instructions .Route 04/22/23 .COMPLEX #90 tabs Allergies Allergy/AdvReac Type Severity Reaction Status Date / Time amoxicillin Allergy Mild Verified 09/17/23 13:38 Sulfa (Sulfonamide Allergy Mild Rash Verified 09/17/23 13:38 Antibiotics) adhesive Allergy Blisters Verified 09/17/23 13:38 adhesive tape Allergy Rash Verified 09/17/23 13:38 PFSH <SHELIA Paniagua - Last Filed: 09/17/23 19:07> [facility] Disclaimer: The information contained in this section may have been updated after the patient was seen, as this information can be updated by other users. Medical History No significant past medical history Surgical History History of cholecystectomy History of left knee surgery Hx of hand surgery Family History Other Family history of cancer Family history of diabetes mellitus type II Family history of myocardial infarction Family history of stroke Social History Smoking Status: Never smoker second hand exposure: No alcohol intake: never substance use type: denies use current occupational status: employed Travel in the last 8 weeks: None household members: spouse and children housing: house marital status: education level: high school service: No current occupation: [employer] current occupational exposures/hazards: No caffeine: Yes special ben needs: No agree to transfusion: No do you feel safe at home: Yes victim of physical abuse: No victim of emotional abuse: No victim of sexual abuse: No would you like helpful sources: No <SHELIA Paniagua - Last Filed: 09/17/23 19:07> ROS Obtained: Yes Systems reviewed as appropriate & no additional complaints except as documented Physical Exam <SHELIA Paniagua - Last Filed: 09/17/23 19:07> Narrative Physical exam: The patient is a very pleasant well-nourished well-developed 33-year-old female who otherwise is in no acute distress General General appearance: alert and in no apparent distress Head Head exam: atraumatic and normal inspection Eye Eye exam: Present normal appearance, PERRL and EOMI ENT ENT exam: Present normal exam, normal oropharynx and mucous membranes moist Neck Neck exam: Present normal inspection and full ROM Chest Chest inspection: Present normal inspection and symmetric chest wall rise Respiratory Respiratory exam: Present normal lung sounds bilaterally; Absent respiratory distress Cardiovascular Cardiovascular exam: Present regular rate, normal rhythm, normal heart sounds, +S1 and +S2 Abdominal Exam Abdominal exam: Present soft, tenderness (Tenderness diffusely but more focally so in the right lower quadrant) and normal bowel sounds; Absent guarding or rebound Abdominal tenderness: Present RLQ Extremities Exam Extremities exam: Present normal inspection and full ROM Neurological Exam Neurological exam: Present alert and oriented X3 Psychiatric Psychiatric exam: Present normal affect and normal mood Skin Skin exam: Present warm, dry and normal color Lymphatic Lymphatic Findings: no adenopathy Medical Decision Making <SHELIA Paniagua - Last Filed: 09/17/23 19:07> Medical Records Medical records reviewed: Yes I reviewed the patient's medical records. Edwin Inquiry Pt receiving controlled substance: Yes Edwin was queried for this patient: Yes Risks and benefits of using a controlled substance: were discussed with pt by me Vital Signs: 09/17/23 14:12 09/17/23 15:00 09/17/23 15:30 Temperature 98.1 F Temperature Source Oral Pulse Rate 67 72 Pulse Rate [Right Radial] 69 Respiratory Rate 20 20 20 Blood Pressure 120/82 118/72 Blood Pressure [Right Arm] 120/83 Blood Pressure Mean 92 87 Blood Pressure Mean [Right Arm] 95 Blood Pressure Source Blood Pressure Position 02 Sat by Pulse Oximetry 99 99 99 Oxygen Delivery Method Room Air 09/17/23 18:18 Temperature 98.3 F Temperature Source Oral Pulse Rate 60 Pulse Rate [Right Radial] Respiratory Rate 18 Blood Pressure 114/76 Blood Pressure [Right Arm] Blood Pressure Mean Blood Pressure Mean [Right Arm] Blood Pressure Source Automatic Cuff Blood Pressure Position Sitting 02 Sat by Pulse Oximetry Oxygen Delivery Method Room Air Lab Data Lab Results 09/17/23 14:25: WBC 7.6, RBC 4.89, Hgb 14.2, Hct 41.0, MCV 83.8, MCH 29.1, MCHC 34.8, RDW 13.9, Plt Count 182, MPV 9.3, Neut % (Auto) 67.5, Lymph % (Auto) 25.6, Ocean % (Auto) 4.5, Eos % (Auto) 1.6, Baso % (Auto) 0.8, Neut # (Auto) 5.1, Lymph # (Auto) 1.9, Ocean # (Auto) 0.3, Eos # (Auto) 0.1, Baso # (Auto) 0.1, Total Counted 100, Neutrophils % (Manual) 65, Lymphocytes % (Manual) 33, Monocytes % (Manual) 2, Platelet Estimate Normal, RBC Morphology Normal, Sodium 140, Potassium 3.6, Chloride 104, Carbon Dioxide 30, Anion Gap 9.6, BUN 9, Creatinine 0.90, Estimated Creat Clear 145, Estimated GFR 73, Est GFR ( Amer) 88, Glucose 99, Calcium 9.2, Total Bilirubin 0.5, AST 31, ALT 24, Alkaline Phosphatase 60, Total Protein 7.8, Albumin 4.4, Globulin 3.4 H, Albumin/Globulin Ratio 1.3, HCG, Quant < 2 09/17/23 15:35: Urine Color Yellow, Urine Appearance Sl cloudy, Urine pH 6.5, Ur Specific [place] 1.015, Urine Protein Negative, Urine Glucose (UA) Negative, Urine Ketones Negative, Urine Blood Negative, Urine Nitrate Negative, Urine Bilirubin Negative, Urine Urobilinogen 0.2, Ur Leukocyte Esterase Negative, Urine RBC None, Urine WBC Occasional, Ur Squamous Epith Cells 5-10, Urine Bacteria Trace 09/17/23 14:25 09/17/23 14:25 Orders (Tests/Meds): ED MEDICATIONS Discontinued Medications Generic Name Dose Route Start Last Admin Trade Name Freq PRN Reason Stop Dose Admin Acetaminophen 1,000 mg 09/17/23 14:35 09/17/23 15:07 Acetaminophen 1,000mg/100ml Vial IV 09/17/23 14:36 1,000 mg ONCE ONE Administration Lactated Ringer's 1,000 mls @ 125 mls/hr 09/17/23 14:45 09/17/23 15:08 Lactated Ringer's 1000 Ml Bag IV 10/17/23 14:44 125 mls/hr .Q8H LUANNE Administration Iopamidol 75 ml 09/17/23 15:46 09/17/23 15:47 Iopamidol-370 (76%);100ml Bottle IV 09/17/23 15:47 75 ml ONCE ONE Administration Ketorolac Tromethamine 15 mg 09/17/23 14:35 09/17/23 15:08 Ketorolac 30mg/Ml Vial IM 09/17/23 14:36 15 mg ONCE ONE Administration Morphine Sulfate 2 mg 09/17/23 14:35 09/17/23 15:08 Morphine 2mg/Ml Syringe IV 09/17/23 14:36 2 mg ONCE ONE Administration Sodium Chloride 10 ml 09/17/23 15:46 09/17/23 15:47 Sodium Chloride 0.9% 10ml Syr (Rad Only) IV 09/17/23 15:47 10 ml ONCE ONE Administration ORDERS Category Date Time Status CT abdomen pelvis w con Stat Cat Scan 09/17/23 14:36 Completed US transvaginal Stat Exams 09/17/23 16:46 Completed Beta HCG, Quant [HCG,Quantitative] Stat Lab 09/17/23 14:25 Completed CBC Man Diff [Complete Blood Count Man Dif] Stat Lab 09/17/23 14:25 Completed CMP [Comprehensive Metabolic Panel] Stat Lab 09/17/23 14:25 Completed UA [Urinalysis and Microscopic] Stat Lab 09/17/23 15:35 Completed Medical Decision Narrative: In summary patient is a in summary patient is a 33-year-old female who presents to the emergency department for evaluation of right lower quadrant abdominal pain. Patient is hemodynamically stable and afebrile on arrival . Physical exam is remarkable for diffuse abdominal tenderness to palpation but more focally so in the right lower quadrant over McBurney's point with no rebound tenderness. Differential diagnosis includes ovarian torsion versus appendicitis enteritis. Initial workup will be conducted with hematological studies CT im aging. Initial interventions include NSAIDs IV fluid morphine 2 mg 1 time. initial workup reviewed by me shows normal white count with no shift normal chemistries and unofficially interpreted the patient's CT scan of the abdomen pelvis has not acute no evidence of acute appendicitis or other acute intra- abdominal abnormalities.. Transvaginal ultrasound revealed no acute abnormalities no ovarian torsion. Upon repeat evaluation patient's pain is diminished with nonsteroidals and opiate analgesia. Management of the patient was discussed with general surgery on-call. Given this patient is being discharged with diagnosis of nonspecific enteritis and is appropriate for discharge home. Patient is advised to return to the emergency department if symptoms change or worsen. Follow-up with PCP in 1 week or sooner as needed I was consulted by the VINCEN[facility], and we discussed the complexity of the problems being addressed. I approved the treatment and management plan for this patient?s care in the Emergency Department, thus performing a substantive portion of the medical decision making. I had lengthy discussion with patient. Independently interpreted workup, negative on all aspects including CBC, chemistry, hCG, urine, CT of the abdomen pelvis, as well as pelvic ultrasound. I feel at this time, patient most likely has enteritis. She states that she also started having severe diarrhea shortly after developing this pain is nonbloody. She is also having nausea without vomiting. On my exam, patient is most prominently tender right lower, right upper quadrant, but also in left lower quadrant and suprapubic area. This most likely represents enteritis. Conversation had with patient regarding return precautions including decreased p.o. intake, inability to tolerate, bilious or bloody vomiting, no longer passing flatus, among others. Her and her significant other voiced their understanding. Because patient at baseline without signs or symptoms of clinical decompensation, deemed appropriate for discharge. Results were relayed to patient who voiced understanding and were agreeable to outpatient management and follow up. At the time of discharge the patient was hemodynamically stable, tolerating PO, and mobilizing appropriately. Enmanuel Powell MD <Enmanuel Powell MD - Last Filed: 09/17/23 23:39> Vital Signs: 09/17/23 14:12 09/17/23 15:00 09/17/23 15:30 Temperature 98.1 F Temperature Source Oral Pulse Rate 67 72 Pulse Rate [Right Radial] 69 Respiratory Rate 20 20 20 Blood Pressure 120/82 118/72 Blood Pressure [Right Arm] 120/83 Blood Pressure Mean 92 87 Blood Pressure Mean [Right Arm] 95 Blood Pressure Source Blood Pressure Position 02 Sat by Pulse Oximetry 99 99 99 Oxygen Delivery Method Room Air 09/17/23 18:18 Temperature 98.3 F Temperature Source Oral Pulse Rate 60 Pulse Rate [Right Radial] Respiratory Rate 18 Blood Pressure 114/76 Blood Pressure [Right Arm] Blood Pressure Mean Blood Pressure Mean [Right Arm] Blood Pressure Source Automatic Cuff Blood Pressure Position Sitting 02 Sat by Pulse Oximetry Oxygen Delivery Method Room Air Lab Data Lab Results 09/17/23 14:25: WBC 7.6, RBC 4.89, Hgb 14.2, Hct 41.0, MCV 83.8, MCH 29.1, MCHC 34.8, RDW 13.9, Plt Count 182, MPV 9.3, Neut % (Auto) 67.5, Lymph % (Auto) 25.6, Ocean % (Auto) 4.5, Eos % (Auto) 1.6, Baso % (Auto) 0.8, Neut # (Auto) 5.1, Lymph # (Auto) 1.9, Ocean # (Auto) 0.3, Eos # (Auto) 0.1, Baso # (Auto) 0.1, Total Counted 100, Neutrophils % (Manual) 65, Lymphocytes % (Manual) 33, Monocytes % (Manual) 2, Platelet Estimate Normal, RBC Morphology Normal, Sodium 140, Potassium 3.6, Chloride 104, Carbon Dioxide 30, Anion Gap 9.6, BUN 9, Creatinine 0.90, Estimated Creat Clear 145, Estimated GFR 73, Est GFR ( Amer) 88, Glucose 99, Calcium 9.2, Total Bilirubin 0.5, AST 31, ALT 24, Alkaline Phosphatase 60, Total Protein 7.8, Albumin 4.4, Globulin 3.4 H, Albumin/Globulin Ratio 1.3, HCG, Quant < 2 09/17/23 15:35: Urine Color Yellow, Urine Appearance Sl cloudy, Urine pH 6.5, Ur Specific [place] 1.015, Urine Protein Negative, Urine Glucose (UA) Negative, Urine Ketones Negative, Urine Blood Negative, Urine Nitrate Negative, Urine Bilirubin Negative, Urine Urobilinogen 0.2, Ur Leukocyte Esterase Negative, Urine RBC None, Urine WBC Occasional, Ur Squamous Epith Cells 5-10, Urine Bacteria Trace Orders (Tests/Meds): ED MEDICATIONS Discontinued Medications Generic Name Dose Route Start Last Admin Trade Name Elizabeth PRN Reason Stop Dose Admin Acetaminophen 1,000 mg 09/17/23 14:35 09/17/23 15:07 Acetaminophen 1,000mg/100ml Vial IV 09/17/23 14:36 1,000 mg ONCE ONE Administration Lactated Ringer's 1,000 mls @ 125 mls/hr 09/17/23 14:45 09/17/23 15:08 Lactated Ringer's 1000 Ml Bag IV 10/17/23 14:44 125 mls/hr .Q8H LUANNE Administration Iopamidol 75 ml 09/17/23 15:46 09/17/23 15:47 Iopamidol-370 (76%);100ml Bottle IV 09/17/23 15:47 75 ml ONCE ONE Administration Ketorolac Tromethamine 15 mg 09/17/23 14:35 09/17/23 15:08 Ketorolac 30mg/Ml Vial IM 09/17/23 14:36 15 mg ONCE ONE Administration Morphine Sulfate 2 mg 09/17/23 14:35 09/17/23 15:08 Morphine 2mg/Ml Syringe IV 09/17/23 14:36 2 mg ONCE ONE Administration Sodium Chloride 10 ml 09/17/23 15:46 09/17/23 15:47 Sodium Chloride 0.9% 10ml Syr (Rad Only) IV 09/17/23 15:47 10 ml ONCE ONE Administration ORDERS Category Date Time Status CT abdomen pelvis w con Stat Cat Scan 09/17/23 14:36 Completed US transvaginal Stat Exams 09/17/23 16:46 Completed Beta HCG, Quant [HCG,Quantitative] Stat Lab 09/17/23 14:25 Completed CBC Man Diff [Complete Blood Count Man Dif] Stat Lab 09/17/23 14:25 Completed CMP [Comprehensive Metabolic Panel] Stat Lab 09/17/23 14:25 Completed UA [Urinalysis and Microscopic] Stat Lab 09/17/23 15:35 Completed Medical Decision Narrative: In summary patient is a in summary patient is a 33-year-old female who presents to the emergency department for evaluation of right lower quadrant abdominal pain. Patient is hemodynamically stable and afebrile on arrival . Physical exam is remarkable for diffuse abdominal tenderness to palpation but more focally so in the right lower quadrant over McBurney's point with no rebound tenderness. Differential diagnosis includes ovarian torsion versus appendicitis enteritis. Initial workup will be conducted with hematological studies CT imaging. Initial interventions include NSAIDs IV fluid morphine 2 mg 1 time. initial workup reviewed by me shows normal white count with no shift normal chemistries and unofficially interpreted the patient's CT scan of the abdomen pelvis has not acute no evidence of acute appendicitis or other acute intra- abdominal abnormalities.. Transvaginal ultrasound revealed no acute abnormalities no ovarian torsion. Upon repeat evaluation patient's pain is diminished with nonsteroidals and opiate analgesia. Management of the patient was discussed with general surgery on-call. Given this patient is being discharged with diagnosis of nonspecific enteritis and is appropriate for discharge home. Patient is advised to return to the emergency department if symptoms change or worsen. Follow-up with PCP in 1 week or sooner as needed I was consulted by the [facility], and we discussed the complexity of the problems being addressed. I approved the treatment and management plan for this patient?s care in the Emergency Department, thus performing a substantive portion of the medical decision making. I had lengthy discussion with patient. Independently interpreted workup, negative on all aspects including CBC, chemistry, hCG, urine, CT of the abdomen pelvis, as well as pelvic ultrasound. I feel at this time, patient most likely has enteritis. She states that she also started having severe diarrhea shortly after developing this pain is nonbloody. She is also having nausea without vomiting. On my exam, patient is most prominently tender right lower, right upper quadrant, but also in left lower quadrant and suprapubic area. This most likely represents enteritis. Conversation had with patient regarding return precautions including decreased p.o. intake, inability to tolerate, bilious or bloody vomiting, no longer passing flatus, among others. Her and her significant other voiced their understanding. Because patient at baseline without signs or symptoms of clinical decompensation, deemed appropriate for discharge. Results were relayed to patient who voiced understanding and were agreeable to outpatient management and follow up. At the time of discharge the patient was hemodynamically stable, tolerating PO, and mobilizing appropriately. Enmanuel Powell MD <Alissa Ramirez, DO - Last Filed: 09/18/23 08:20> Vital Signs: 09/17/23 14:12 09/17/23 15:00 09/17/23 15:30 Temperature 98.1 F Temperature Source Oral Pulse Rate 67 72 Pulse Rate [Right Radial] 69 Respiratory Rate 20 20 20 Blood Pressure 120/82 118/72 Blood Pressure [Right Arm] 120/83 Blood Pressure Mean 92 87 Blood Pressure Mean [Right Arm] 95 Blood Pressure Source Blood Pressure Position 02 Sat by Pulse Oximetry 99 99 99 Oxygen Delivery Method Room Air 09/17/23 18:18 Temperature 98.3 F Temperature Source Oral Pulse Rate 60 Pulse Rate [Right Radial] Respiratory Rate 18 Blood Pressure 114/76 Blood Pressure [Right Arm] Blood Pressure Mean Blood Pressure Mean [Right Arm] Blood Pressure Source Automatic Cuff Blood Pressure Position Sitting 02 Sat by Pulse Oximetry Oxygen Delivery Method Room Air Lab Data Lab Results 09/17/23 14:25: WBC 7.6, RBC 4.89, Hgb 14.2, Hct 41.0, MCV 83.8, MCH 29.1, MCHC 34.8, RDW 13.9, Plt Count 182, MPV 9.3, Neut % (Auto) 67.5, Lymph % (Auto) 25.6, Ocean % (Auto) 4.5, Eos % (Auto) 1.6, Baso % (Auto) 0.8, Neut # (Auto) 5.1, Lymph # (Auto) 1.9, Ocean # (Auto) 0.3, Eos # (Auto) 0.1, Baso # (Auto) 0.1, Total Counted 100, Neutrophils % (Manual) 65, Lymphocytes % (Manual) 33, Monocytes % (Manual) 2, Platelet Estimate Normal, RBC Morphology Normal, Sodium 140, Potassium 3.6, Chloride 104, Carbon Dioxide 30, Anion Gap 9.6, BUN 9, Creatinine 0.90, Estimated Creat Clear 145, Estimated GFR 73, Est GFR ( Amer) 88, Glucose 99, Calcium 9.2, Total Bilirubin 0.5, AST 31, ALT 24, Alkaline Phosphatase 60, Total Protein 7.8, Albumin 4.4, Globulin 3.4 H, Albumin/Globulin Ratio 1.3, HCG, Quant < 2 09/17/23 15:35: Urine Color Yellow, Urine Appearance Sl cloudy, Urine pH 6.5, Ur Specific [place] 1.015, Urine Protein Negative, Urine Glucose (UA) Negative, Urine Ketones Negative, Urine Blood Negative, Urine Nitrate Negative, Urine Bilirubin Negative, Urine Urobilinogen 0.2, Ur Leukocyte Esterase Negative, Urine RBC None, Urine WBC Occasional, Ur Squamous Epith Cells 5-10, Urine Bacteria Trace Orders (Tests/Meds): ED MEDICATIONS Discontinued Medications Generic Name Dose Route Start Last Admin Trade Name Freq PRN Reason Stop Dose Admin Acetaminophen 1,000 mg 09/17/23 14:35 09/17/23 15:07 Acetaminophen 1,000mg/100ml Vial IV 09/17/23 14:36 1,000 mg ONCE ONE Administration Lactated Ringer's 1,000 mls @ 125 mls/hr 09/17/23 14:45 09/17/23 15:08 Lactated Ringer's 1000 Ml Bag IV 10/17/23 14:44 125 mls/hr .Q8H LUANNE Administration Iopamidol 75 ml 09/17/23 15:46 09/17/23 15:47 Iopamidol-370 (76%);100ml Bottle IV 09/17/23 15:47 75 ml ONCE ONE Administration Ketorolac Tromethamine 15 mg 09/17/23 14:35 09/17/23 15:08 Ketorolac 30mg/Ml Vial IM 09/17/23 14:36 15 mg ONCE ONE Administration Morphine Sulfate 2 mg 09/17/23 14:35 09/17/23 15:08 Morphine 2mg/Ml Syringe IV 09/17/23 14:36 2 mg ONCE ONE Administration Sodium Chloride 10 ml 09/17/23 15:46 09/17/23 15:47 Sodium Chloride 0.9% 10ml Syr (Rad Only) IV 09/17/23 15:47 10 ml ONCE ONE Administration ORDERS Category Date Time Status CT abdomen pelvis w con Stat Cat Scan 09/17/23 14:36 Completed US transvaginal Stat Exams 09/17/23 16:46 Completed Beta HCG, Quant [HCG,Quantitative] Stat Lab 09/17/23 14:25 Completed CBC Man Diff [Complete Blood Count Man Dif] Stat Lab 09/17/23 14:25 Completed CMP [Comprehensive Metabolic Panel] Stat Lab 09/17/23 14:25 Completed UA [Urinalysis and Microscopic] Stat Lab 09/17/23 15:35 Completed Medical Decision Narrative: In summary patient is a in summary patient is a 33-year-old female who presents to the emergency department for evaluation of right lower quadrant abdominal pain. Patient is hemodynamically stable and afebrile on arrival . Physical exam is remarkable for diffuse abdominal tenderness to palpation but more focally so in the right lower quadrant over McBurney's point with no rebound t enderness. Differential diagnosis includes ovarian torsion versus appendicitis enteritis. Initial workup will be conducted with hematological studies CT imaging. Initial interventions include NSAIDs IV fluid morphine 2 mg 1 time. initial workup reviewed by me shows normal white count with no shift normal chemistries and unofficially interpreted the patient's CT scan of the abdomen pelvis has not acute no evidence of acute appendicitis or other acute intra- abdominal abnormalities.. Transvaginal ultrasound revealed no acute abnormalities no ovarian torsion. Upon repeat evaluation patient's pain is diminished with nonsteroidals and opiate analgesia. Management of the patient was discussed with general surgery on-call. Given this patient is being discharged with diagnosis of nonspecific enteritis and is appropriate for discharge home. Patient is advised to return to the emergency department if symptoms change or worsen. Follow-up with PCP in 1 week or sooner as needed I was consulted by the [facility]INC[facility], and we discussed the complexity of the problems being addressed. I approved the treatment and management plan for this patient?s care in the Emergency Department, thus performing a substantive portion of the medical decision making. I had lengthy discussion with patient. Independently interpreted workup, negative on all aspects including CBC, chemistry, hCG, urine, CT of the abdomen pelvis, as well as pelvic ultrasound. I feel at this time, patient most likely has enteritis. She states that she also started having severe diarrhea shortly after developing this pain is nonbloody. She is also having nausea without vomiting. On my exam, patient is most prominently tender right lower, right upper quadrant, but also in left lower quadrant and suprapubic area. This most likely represents enteritis. Conversation had with patient regarding return precautions including decreased p.o. intake, inability to tolerate, bilious or bloody vomiting, no longer passing flatus, among others. Her and her significant other voiced their understanding. Because patient at baseline without signs or symptoms of clinical decompensation, deemed appropriate for discharge. Results were relayed to patient who voiced understanding and were agreeable to outpatient management and follow up. At the time of discharge the patient was hemodynamically stable, tolerating PO, and mobilizing appropriately. Enmanuel Powell MD I was consulted by the VINCENZO, and we discussed the complexity of the problems being addressed. I approved the treatment and management plan for this patient's care in the emergency department, thus performing a substantive portion of the medical decision making. Alissa Ramirez, Critical Care <SHELIA Paniagua - Last Filed: 09/17/23 19:07> Critical Care Time Critical Care Time: No
--- NOTE | 2023-09-17 14:36 | CT_ITS ---
FINAL REPORT CLINICAL HISTORY: rlq abdominal pain COMPARISON: 09/13/2023 FINDINGS: CT ABDOMEN AND PELVIS WITH CONTRAST TECHNIQUE: IV contrast enhanced exam COMPARISON: 09/13/2023. FINDINGS: ABDOMEN: The liver, spleen, pancreas, kidneys, and adrenal glands are unremarkable in appearance. There is a para umbilical abdominal wall hernia which contains fat. The gallbladder has been surgically resected. No evidence of bowel obstruction is seen. PELVIS: The appendix is not as well-seen as on the prior CT, as it is partially obscured by the adjacent right ovary. Trace free fluid is present in the pelvis. The ovaries and uterus are unremarkable. Bladder wall thickening remains present, and nonspecific, as noted on the prior CT. This study was performed using automated techniques to achieve radiation exposure as low as reasonably achievable IMPRESSION: The appendix is not as well-seen on today's examination partially obscured by the adjacent ovary. The ovaries and uterus are unremarkable. Bladder wall thickening remains present, and nonspecific in etiology. Reviewed, Interpreted and Dictated by Moses Busch MD Transcribed by Sandy Lowery Authenticated and [facility]
[2023-09-17 14:47] LABS: MANUAL DIFFERENTIAL MANUAL DIFFERENTIAL (MANUAL DIFF)
[2023-09-17 14:50] LABS: Basophils # 0.1 K/mm3 (0-0.2); Basophils % 0.8 % (0.1-2.0); Eosinophils # 0.1 K/mm3 (0.0-0.4); Eosinophils % 1.6 % (0.1-12.0); Hemoglobin 14.2 g/dL (12.2-16.2); Lymphocytes # 1.9 K/mm3 (0.7-4.5); Lymphocytes % 25.6 % (10-50); Mean Corpuscular HGB Conc 34.8 g/dL (31.8-35.4); Mean Corpuscular Hemoglobin 29.1 pg (27.0-31.2); Mean Corpuscular Volume 83.8 fl (81-99); Mean Platelet Volume 9.3 fl (7.4-10.4); Monocytes # 0.3 K/mm3 (0.1-1.0); Monocytes % 4.5 % (1.7-9.3); Neutrophils # 5.1 K/mm3 (1.8-7.8); Neutrophils % 67.5 % (37.0-80.0); Platelet Count 182 K/mm3 (142-424); Red Blood Count 4.89 M/mm3 (4.20-5.40); Red Cell Distribution Width 13.9 % (11.5-17.5); White Blood Count 7.6 K/mm3 (4.8-10.8)
[2023-09-17 14:54] LABS: Chloride 104 mmol/L (98-107); Potassium 3.6 mmoL/L (3.5-5.1); Sodium 140 mmol/L (136-145)
[2023-09-17 14:57] LABS: Alanine Aminotransferase 24 U/L (12-78); Albumin Level 4.4 g/dl (3.5-5.0); Albumin/Globulin Ratio 1.3 (1.1-1.8); Alkaline Phosphatase 60 U/L (38-126); Anion Gap 9.6 mEq/L (5-15); Aspartate Amino Transferase 31 U/L (14-36); Bilirubin,Total 0.5 mg/dl (0.2-1.3); Blood Urea Nitrogen 9 mg/dl (7-17); Carbon Dioxide 30 mmol/L (22.0-30.0); Creatinine Clearance Estimated 145 mL/min (50-200); Estimated Glomerular Filt Rate 73 ml/min (>60); GFR (African American) 88 ML/MIN (>60); Globulin 3.4 g/dL (1.3-3.2); Total Protein,Serum 7.8 g/dl (6.3-8.2)
[2023-09-17 14:58] LABS: Calcium 9.2 mg/dl (8.4-10.2); Glucose 99 mg/dl (74-100)
[2023-09-17 15:00] VITALS: BP 120/82; PULSE 67; RESP 20; O2SAT 99
[2023-09-17] MEDS: ACETAMINOPHEN 1,000MG/100ML VIAL 1000 MG IV (15:07)
[2023-09-17] MEDS: KETOROLAC 30MG/ML VIAL 15 MG IM (15:08)
[2023-09-17] MEDS: LACTATED RINGERS 1000ML 1,000 ML 125 ML IV (15:08)
[2023-09-17] MEDS: MORPHINE 2MG/ML SYRINGE 2 MG IV (15:08)
[2023-09-17 15:15] LABS: HCG,Quantitative < 2 mIU/ml (0-5.42)
[2023-09-17 15:16] LABS: Lymphocytes % 33 % (10-50); Monocytes % 2 % (2-9); Neutrophils % 65 % (42-76); Platelet Estimate Normal; RBC Morphology Normal; Total Cells Counted 100
[2023-09-17 15:30] VITALS: BP 118/72; PULSE 72; RESP 20; O2SAT 99
[2023-09-17 15:42] LABS: Microscopic, Urine URINE MICROSCOPIC (MICROSCOPIC)
[2023-09-17 15:43] LABS: Appearance,Urine SL CLOUDY (Clear); Bilirubin,Urine Negative (Negative); Blood, Urine Negative (Negative); Color,Urine YELLOW (Yellow); Glucose,Urine (UA) Negative (Negative); Ketones,Urine Negative (Negative); Leukocyte Esterase,Urine Negative (Negative); Nitrate,Urine Negative (Negative); PH,Urine 6.5 (5.0-8.5); Protein,Urine Negative (Negative); Specific Gravity, Urine 1.015 (1.005-1.030); Urobilinogen,Urine 0.2 EU/dl (0.2)
[2023-09-17] MEDS: SODIUM CHLORIDE 0.9% 10ML SYR (RAD ONLY) 10 ML IV (15:47)
[2023-09-17] MEDS: IOPAMIDOL-370 (76%);100ML BOTTLE 75 ML IV (15:47)
[2023-09-17 16:03] LABS: Bacteria,Urine Trace /lpf; WBC,Urine Occasional #/hpf (0-3)
--- NOTE | 2023-09-17 16:46 | US_ITS ---
PROCEDURE INFORMATION: Exam: US Pelvis, Transvaginal Exam date and time: 09/17/2023 5:12 PM Age: 33 years old Clinical indication: Pelvic pain; Additional info: Rlq abd pain LABS AND CLINICAL REPORTS: Last menstrual period start date: 09/04/2023 TECHNIQUE: Imaging protocol: Real-time transvaginal pelvic ultrasound with image documentation. Transvaginal imaging was used for better evaluation of the endometrium, adnexa, and/or cervix. COMPARISON: US TRANSVAGINAL 07/12/2021 2:16 PM FINDINGS: Uterus: Uterus measures 9.25 cm x 5.95 cm x 4.66 cm. Endometrial stripe normal thickness at 13 mm. Small nabothian cysts in the cervix measuring 8 mm. Right ovary/adnexa: Right ovary measures 2.46 cm x 2.46 cm x 1.99 cm. Right ovarian volume is 6.31 mL. Right ovarian blood flow noted. Left ovary/adnexa: Left ovary measures 3.15 cm x 2.63 cm x 2.28 cm. Left ovarian volume is 9.89 mL. Left ovarian blood flow noted. Intraperitoneal space: Small amount of free fluid. IMPRESSION: 1. Small amount of pelvic free fluid which is nonspecific. 2. Otherwise unremarkable transvaginal ultrasound of the pelvis.
--- NOTE | 2023-09-17 17:18 | PC.NURSE ---
transported to US via wheelchair and wool fleece grader
[2023-09-17 18:18] VITALS: BP 114/76; PULSE 60; RESP 18; TEMP 36.8; O2SAT 97
== END 2023-09-17 18:29 | disposition home or self-care (01) ==
PROVIDERS: Physician Assistant; Emergency Provider Emergency Medicine; PCP Physician Assistant
DX: R10.31 Right lower quadrant pain (principal); R11.0 Nausea; K52.9 Noninfective gastroenteritis and colitis, unspecified
CPT/HCPCS: 74177; 76830; 80053; 81001; 84702; 85007; 85014; 85018; 85048; 85049; 96372; 96374; 96375; 99285; J0131; Q9967

== ENCOUNTER 2023-10-07 09:30 | Outpatient (CLI) | payer MEDICAID, SELFPAY ==
[2023-10-07 11:02] LABS: HCG,Quantitative 240 mIU/ml (0-5.42)
[2023-10-08 09:47] LABS: Progesterone 21.1 ng/mL (.)
== END 2023-10-07 23:59 ==
LOC: LAB 09:31
PROVIDERS: PCP Physician Assistant; Visit Provider Obstetrics & Gynecology
DX: Z32.01 Encounter for pregnancy test, result positive (principal)
CPT/HCPCS: 36415; 84144; 84702

== ENCOUNTER 2023-10-09 10:23 | Outpatient (CLI) | payer MEDICAID, SELFPAY ==
[2023-10-09 11:37] LABS: HCG,Quantitative 337 mIU/ml (0-5.42)
[2023-10-10 08:38] LABS: Progesterone 17.7 ng/mL (.)
== END 2023-10-09 23:59 ==
PROVIDERS: PCP Physician Assistant; Visit Provider Obstetrics & Gynecology
DX: N92.6 Irregular menstruation, unspecified (principal); Z32.00 Encounter for pregnancy test, result unknown
CPT/HCPCS: 36415; 84144; 84702

== ENCOUNTER 2023-10-12 15:10 | Outpatient (CLI) | payer MEDICAID, SELFPAY ==
[2023-10-12 16:54] LABS: HCG,Quantitative 626 mIU/ml (0-5.42)
[2023-10-13 10:32] LABS: Progesterone 13.3 ng/mL (.)
== END 2023-10-12 23:59 ==
LOC: LAB 15:11
PROVIDERS: PCP Physician Assistant; Visit Provider Obstetrics & Gynecology
DX: R10.31 Right lower quadrant pain (principal); R11.0 Nausea; Z32.01 Encounter for pregnancy test, result positive
CPT/HCPCS: 36415; 84144; 84702

== ENCOUNTER 2023-10-21 13:03 | Outpatient (CLI) | payer MEDICAID, SELFPAY ==
--- NOTE | 2023-10-21 13:06 | US_ITS ---
PROCEDURE: US OB <= 14 WEEKS FETUS CLINICAL INDICATION: dates, viable , hx, of ectopic COMPARISON: US US TRANSVAGINAL from 09/17/2023 FINDINGS: Transvaginal sonographic images of the pelvis were obtained. From her last menstrual period she is 6weeks 5days. An intrauterine gestational sac is present. It measures 0.3 cm x 0.4 cm x 0.3 cm. The area surrounding the gestational sac is hyperechoic. A pole is not seen. This correlates to a gestational age of 4weeks 6days. heart tones are not seen today. Yolk sac is not seen today. There is a 2nd small, irregular fluid-filled area towards the fundus of the uterus. The endometrium is thickened and measures 19 mm. The right ovary is seen and appears normal. The left ovary is seen and appears normal. Adjacent to the left ovary is a thick-walled cystic structure with clear fluid. The fluid measures 0.8 cm x 1.1 cm x 0.9 cm. There is a significant ring of fire and hypervascularity around this cystic structure. Suspicious for ectopic . There is trace fluid in the cul-de-sac. IMPRESSION: 1. Anteverted uterus and within the uterine cavity is a 4 mm gestational sac/pseudo sac. 2. Adjacent to the left ovary is a thick-walled structure with fluid. The thick wall has a ring of fire appearance with Doppler. 3. This is suspicious for an ectopic especially given the fact that she has had a previous ectopic on the opposite side. 4. Trace fluid in the cul-de-sac. 5. Serial, repeat beta HCGs and a repeat ultrasound have been scheduled. Dictated by: Danny Reynolds MD 10/21/2023 16:35 Danny Reynolds MD in [facility] 10/21/2023 16:35
[2023-10-21 15:59] LABS: HCG,Quantitative 1150 mIU/ml (0-5.42)
== END 2023-10-21 23:59 ==
LOC: RAD 13:03
PROVIDERS: Nurse Practitioner Obstetrics & Gynecology; PCP Physician Assistant; Visit Provider Obstetrics & Gynecology
DX: Z87.59 Personal history of other complications of pregnancy, childbirth and the puerperium (principal); O36.71X0 Maternal care for viable fetus in abdominal pregnancy, first trimester, not applicable or unspecified
CPT/HCPCS: 36415; 76801; 84702

== ENCOUNTER 2023-10-23 09:40 | Outpatient (CLI) | payer MEDICAID, SELFPAY ==
--- NOTE | 2023-10-23 09:40 | US_ITS ---
PROCEDURE: US OB <= 14 WEEKS FETUS CLINICAL INDICATION: Recheck viability of fetus/Dates COMPARISON: US US TRANSVAGINAL from 09/17/2023 US US OB <= 14 WEEKS FETUS from 10/21/2023 FINDINGS: Transvaginal sonographic images of the pelvis were obtained. From her last menstrual period she is 7weeks 0 days. An intrauterine gestational sac is present without a pole. This correlates to a gestational age of 5weeks 0 days. heart tones are not present. Yolk sac is not present. The right ovary is seen and appears normal. The left ovary is seen and appears normal. Adjacent to the left ovary there is a cystic area that has a ring of fire possibly consistent with an ectopic . There are small hyperechoic areas on the ovary that may represent endometriosis. There is no fluid in the cul-de-sac. IMPRESSION: 1. Anteverted uterus with a small gestational sac measuring 5 weeks in size. It has not grown appreciably in size. A pole and yolk sac are not seen. Could represent a pseudo sac. Cannot completely confirm an intrauterine . 2. Adjacent to the left ovary there is a cystic area with a thick wall. Within the thick wall there is hypervascularity consistent with a ring of fire. Possibility of an ectopic here. 3. There is no fluid in the cul-de-sac. Dictated by: Danny Reynolds MD 10/23/2023 11:31 Danny Reynolds MD in [facility] 10/23/2023 11:31
[2023-10-23 11:20] LABS: HCG,Quantitative 1543 mIU/ml (0-5.42)
== END 2023-10-23 23:59 ==
LOC: RAD 09:40
PROVIDERS: PCP Physician Assistant; Visit Provider Nurse Practitioner Obstetrics & Gynecology
DX: O36.71X0 Maternal care for viable fetus in abdominal pregnancy, first trimester, not applicable or unspecified (principal); Z87.59 Personal history of other complications of pregnancy, childbirth and the puerperium; Z32.00 Encounter for pregnancy test, result unknown; Z3A.01 Less than 8 weeks gestation of pregnancy
CPT/HCPCS: 36415; 76801; 84702

== ENCOUNTER 2023-10-30 08:01 | Outpatient (CLI) | payer MEDICAID, SELFPAY ==
--- NOTE | 2023-10-30 08:04 | US_ITS ---
PROCEDURE: US OB <= 14 WEEKS FETUS CLINICAL INDICATION: Check for Viability, location of COMPARISON: US US OB <= 14 WEEKS FETUS from 10/23/2023 FINDINGS: Transvaginal sonographic images of the pelvis were obtained. From her last menstrual period she is 8weeks 0 days. An empty intrauterine gestational sac is present without a pole. This correlates to a gestational age of 5weeks 3days. heart tones are not present. Yolk sac is not seen. The right ovary is seen and appears normal. The left ovary is seen and appears normal. Adjacent to the left ovary there continues to be a thickened area with a central fluid-filled sac. This has not grown appreciably in size since her last ultrasound 1 week ago. There is a consistent ring of fire around this structure. Cannot rule out an ectopic . There is no fluid in the cul-de-sac. IMPRESSION: 1. Likely blighted ovum within the uterine cavity. Could be a pseudo sac. 2. Possible ectopic adjacent to the left ovary with the typical ring of fire. There has been no interval growth in the last week. 3. Right ovary appears normal. 4. No fluid in the cul-de-sac. Dictated by: Danny Reynolds MD 11/01/2023 10:02 Danny Reynolds MD in [place] 11/01/2023 10:02
[2023-10-30 09:44] LABS: HCG,Quantitative 3021 mIU/ml (0-5.42)
== END 2023-10-30 23:59 ==
LOC: RAD 08:01
PROVIDERS: PCP Physician Assistant; Visit Provider Obstetrics & Gynecology
DX: O36.80X0 Pregnancy with inconclusive fetal viability, not applicable or unspecified (principal); Z3A.08 8 weeks gestation of pregnancy; Z87.59 Personal history of other complications of pregnancy, childbirth and the puerperium
CPT/HCPCS: 36415; 76801; 84702

== ENCOUNTER 2023-11-04 15:25 | Outpatient (CLI) | payer MEDICAID, SELFPAY ==
--- NOTE | 2023-11-04 15:30 | US_ITS ---
PROCEDURE: US OB <= 14 WEEKS FETUS CLINICAL INDICATION: Follow up on Location COMPARISON: US US OB <= 14 WEEKS FETUS from 10/23/2023 US US OB <= 14 WEEKS FETUS from 10/30/2023 FINDINGS: Transvaginal sonographic images of the pelvis were obtained. From her last menstrual period she is 8weeks 5days. An intrauterine gestational sac is present without a pole. The sac size has increased from 0.9 cm to 1.1 cm. This correlates to a gestational age of 5weeks 5days. heart tones are absent and a pole is not seen. Yolk sac is not seen. The right ovary is seen and appears normal. It measures 2.5 cm x 2.2 cm x 1.3 cm. The left ovary is seen and appears normal. It measures 2.2 cm x 1.4 cm x 1.4 cm. Adjacent to the left ovary there continues to be an adnexal mass measuring 1.9 cm x 1.4 cm. It has not increased in size. There is a ring of fire that may represent an ectopic . There is no fluid in the cul-de-sac. IMPRESSION: 1. Anteverted uterus and within the uterus is an anechoic sac measuring 1.1 cm. pole and yolk sac are not seen. 2. The right ovary appears normal. 3. The left ovary appears normal but adjacent to the left ovary is a mass with a typical ring of fire. It has not increased in size since her last ultrasound 5 days ago. It likely represents an ectopic . Physician was notified of results. Dictated by: Danny Reynolds MD 11/04/2023 17:00 Danny Reynolds MD in [facility] 11/04/2023 17:00
[2023-11-04 16:45] LABS: HCG,Quantitative 4754 mIU/ml (0-5.42)
== END 2023-11-04 23:59 ==
PROVIDERS: Obstetrics & Gynecology; PCP Physician Assistant; Visit Provider Obstetrics & Gynecology
DX: O26.891 Other specified pregnancy related conditions, first trimester (principal); O36.80X0 Pregnancy with inconclusive fetal viability, not applicable or unspecified; Z87.59 Personal history of other complications of pregnancy, childbirth and the puerperium; Z3A.01 Less than 8 weeks gestation of pregnancy
CPT/HCPCS: 36415; 76801; 84702

== ENCOUNTER 2023-11-04 23:05 | Emergency (ER) | payer SELFPAY ==
[2023-11-04 23:05] VITALS: BP 132/79; PULSE 98; RESP 16; TEMP 36.8; O2SAT 99; BMI 41.5
[2023-11-04 23:38] VITALS: BP 130/79; PULSE 87; RESP 15; TEMP 36.8; O2SAT 98
--- NOTE | 2023-11-05 01:45 | HMH.EDGENADL ---
Discharge Plan Disposition Patient Disposition: Home, Self-Care Condition: Good Prescriptions Prescriptions: No Action promethazine 12.5 mg tablet 12.5 mg PO Q6H PRN (Reason: nausea and vomiting) Qty: 20 1RF ibuprofen 800 mg tablet See Rx Instructions .ROUTE .COMPLEX Qty: 90 0RF Dose Instruction: TAKE 1 TABLET BY MOUTH THREE TIMES DAILY NEEDED FOR PAIN Rx Instructions: TAKE 1 TABLET BY MOUTH THREE TIMES DAILY NEEDED FOR PAIN hydrocodone-acetaminophen 5-325 mg tablet 1 tab PO Q6H PRN (Reason: pain) Qty: 8 0RF Referrals Follow up/Referrals: Porsha Mullins PA [Primary Care Provider] - See instructions Clinical Impressions Clinical Impression: Vaginal bleeding, Encounter for methotrexate monitoring Discharge ED Provider: Christian Birch General Adult HPI General Chief complaint: OB/Uterine Contractions Stated complaint: methotrexate injection Time Seen by Provider: 11/04/23 23:20 History of Present Illness HPI narrative: 33-year-old female at 8w5d by LMP presents with likely ectopic . Patient has been followed by our COVER STITCH MACHINE OPERATOR team for this . She has had an empty intrauterine sac that is being followed with serial ultrasounds and beta-hCG. The ultrasound also shows a left ovarian mass with a ring of fire that is concerning for ectopic . The ultrasound findings have remained stable, however her beta-hCG is rising. At last check today, beta-hCG was 4700. Patient has had a previous ectopic that ruptured and required salpingectomy. Patient desires medical management. Patient was sent by our C[employer] STITCH MACHINE OPERATOR team to receive methotrexate for management of ectopic . She initially went to [facility] given we did not have methotrexate here, however she returns to our ER because she was unable to be managed at [facility]. Related Data Previous Rx's Medication Instructions Recorded ibuprofen 800 mg tablet See Rx Instructions .Route 04/22/23 .COMPLEX #90 tabs promethazine 12.5 mg tablet 12.5 mg PO Q6H PRN nausea and 10/30/23 vomiting #20 tabs hydrocodone 5 mg-acetaminophen 325 1 tab PO Q6H PRN pain #8 tabs 24 mg tablet Allergies Allergy/AdvReac Type Severity Reaction Status Date / Time amoxicillin Allergy Mild Verified 11/04/23 16:12 Sulfa (Sulfonamide Allergy Mild Rash Verified 11/04/23 16:12 Antibiotics) adhesive Allergy Blisters Verified 11/04/23 16:12 adhesive tape Allergy Rash Verified 11/04/23 16:12 [facility] Disclaimer: The information contained in this section may have been updated after the patient was seen, as this information can be updated by other users. 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 Surgical History History of salpingectomy right cornual resection and right salpingectomy 03/13/21 History of left knee surgery Hx of hand surgery History of cholecystectomy Family History Other Family history of cancer Family history of diabetes mellitus type II Family history of myocardial infarction Family history of stroke Social History Smoking Status: Unknown if ever smoked second hand exposure: No alcohol intake: never substance use type: denies use current occupational status: employed Travel in the last 8 weeks: None household members: spouse and children housing: house marital status: education level: high school service: No current occupation: [employer] current occupational exposures/hazards: No caffeine: Yes special ben needs: No agree to transfusion: No do you feel safe at home: Yes victim of physical abuse: No victim of emotional abuse: No victim of sexual abuse: No would you like helpful sources: No ROS Obtained: Yes All systems reviewed & no additional complaints except as documented Physical Exam General General appearance: alert and in no apparent distress Head Head exam: atraumatic and normocephalic Eye Eye exam: Present normal appearance, PERRL and EOMI ENT ENT exam: Present normal oropharynx and normal external ear exam Neck Neck exam: Present normal inspection and full ROM Chest Chest inspection: Present normal inspection and symmetric chest wall rise; Absent tenderness Respiratory Respiratory exam: Present normal lung sounds bilaterally; Absent respiratory distress Cardiovascular Cardiovascular exam: Present regular rate and normal rhythm Abdominal Exam Abdominal exam: Present soft; Absent distention, tenderness or guarding Extremities Exam Extremities exam: Present normal inspection; Absent edema or joint swelling Back Exam Back exam: Present normal inspection; Absent tenderness Neurological Exam Neurological exam: Present alert and oriented X3; Absent motor sensory deficit Psychiatric Psychiatric exam: Present normal affect and normal mood Skin Skin exam: Present warm, dry and normal color Lymphatic Lymphatic Findings: no adenopathy Medical Decision Making Medical Records Medical records reviewed: Yes I reviewed the patient's medical records. Edwin Inquiry Pt receiving controlled substance: No Edwin was queried for this patient: No Vital Signs: 11/04/23 23:05 11/04/23 23:38 Temperature 98.2 F 98.2 F Temperature Source Oral Oral Pulse Rate 87 Pulse Rate [Right Brachial] 98 H Respiratory Rate 16 15 Blood Pressure 130/79 Blood Pressure [Right Arm] 132/79 Blood Pressure Mean [Right Arm] 96 Blood Pressure Source Automatic Cuff Blood Pressure Source [Right Arm] Automatic Cuff Blood Pressure Position Sitting Blood Pressure Position [Right Arm] Sitting 02 Sat by Pulse Oximetry 99 Oxygen Delivery Method Room Air Room Air Lab Data Lab results reviewed: Yes I reviewed the patient's lab results. Orders (Tests/Meds): ED MEDICATIONS Discontinued Medications Generic Name Dose Route Start Last Admin Trade Name Elizabeth PRN Reason Stop Dose Admin Methotrexate 100 mg 11/04/23 23:15 11/04/23 23:15 Methotrexate 2.5mg Tablet PO 11/04/23 23:16 100 mg ONCE ONE Administration Medical Decision Narrative: 33-year-old female at 8w5d by LMP presents with likely ectopic . History was obtained interactive discussion with patient, family, chart review, physician discussion. On arrival, patient is [afebrile, hemodynamically stable, satting appropriately, alert, oriented x4, GCS 15], moving all extremities spontaneously. Full physical exam performed and significant for no significant physical exam abnormalities. See HPI for details. Differential includes but is not limited to intrauterine , , ectopic . As planned by the COVER STITCH MACHINE OPERATOR team and by pharmacy, patient was administered methotrexate for medical treatment of nonviable ectopic . She was monitored for short period of time afterwards and did not develop any immediate ill effects. Given patient history, exam and workup, patient's presentation most likely represents ectopic . She will follow-up with her COVER STITCH MACHINE OPERATOR. Patient discharged in stable condition with return precautions.. Procedures Risk/Benefits of Procedure(s) Were Explained: Yes Critical Care Critical Care Time Critical Care Time: No
== END 2023-11-04 23:39 | disposition home or self-care (01) ==
PROVIDERS: Emergency Provider Emergency Medicine; PCP Physician Assistant
DX: O26.851 Spotting complicating pregnancy, first trimester (principal); Z3A.08 8 weeks gestation of pregnancy
CPT/HCPCS: 96372; 99284; J8610; J9250

== ENCOUNTER 2023-11-07 15:09 | Outpatient (CLI) | payer MEDICAID, SELFPAY ==
[2023-11-07 16:11] LABS: HCG,Quantitative 3485 mIU/ml (0-5.42)
== END 2023-11-07 23:59 ==
LOC: LAB 15:11
PROVIDERS: PCP Obstetrics & Gynecology; Visit Provider Obstetrics & Gynecology
DX: Z51.81 Encounter for therapeutic drug level monitoring (principal); Z79.631 Long term (current) use of antimetabolite agent
CPT/HCPCS: 84702

== ENCOUNTER 2023-11-08 17:29 | Emergency (ER) | payer MEDICAID, SELFPAY ==
[2023-11-08] VITALS (7 sets, daily range): BP systolic 101–137; BP diastolic 61–89; PULSE 67–80; RESP 15–20; TEMP 36.8; O2SAT 95–100; BMI 37.4
--- NOTE | 2023-11-08 17:31 | US_ITS ---
PROCEDURE INFORMATION: Exam: US , Transvaginal Exam date and time: 11/08/2023 6:02 PM Age: 33 years old Clinical indication: complicated by abdominal or pelvic pain; Left lower quadrant; First trimester (<14 weeks 0 days); Gestational age or lmp: 9; Additional info: Known ectopic on medical therapy, pain LABS AND CLINICAL REPORTS: Last menstrual period start date: 09/04/2023 Gestational age (Established): 9 w 2 d Estimated due date (Established): 06/10/2024 TECHNIQUE: Imaging protocol: Real-time transvaginal obstetrical ultrasound of the maternal pelvis with image documentation. Transvaginal imaging was used for better evaluation of the fetus, adnexa, and/or cervix. COMPARISON: US OB <= 14 WEEKS FETUS 11/04/2023 3:29 PM FINDINGS: Gestation: Collection with heterogeneous echotexture at the lower uterine segment suggest blood products versus proximal conception. No findings to suggest intrauterine gestational sac. A 2nd left adnexal cystic structure with peripheral vascularity echoes measures 9.8 x 11.6 x 10.8 mm, unchanged from prior exam continue to favor ectopic without pole identified. MATERNAL: Cervix: Cystic structure associated with the cervix external os measuring 6.5 mm in diameter compatible with nabothian cysts. Two cystic structures associated with the left adnexa/ovary 1 measures 5.6 x 5.1 x 4.6 mm with peripheral vascular echoes. Right ovary/adnexa: Right ovary measures 1.81 cm x 1.75 cm x 1.14 cm. Right ovarian volume is 1.89 mL. Left ovary/adnexa: Left ovary measures 2.74 cm x 1.78 cm x 1.54 cm. Left ovarian volume is 3.93 mL. IMPRESSION: 1. Collection with heterogeneous echotexture at the lower uterine segment suggest blood products. No findings to suggest intrauterine gestational sac. 2. Two cystic structures associated with the left adnexa/ovary 1 measures 5.6 x 5.1 x 4.6 mm with peripheral vascular echoes likely representing a corpus luteal cyst. A 2nd left adnexal cystic structure with peripheral vascularity echoes measures 9.8 x 11.6 x 10.8 mm, unchanged from prior exam continue to favor ectopic without pole identified. Recommend continued close clinical, ultrasound, and laboratory follow-up until hCG progresses to normal values. THIS REPORT CONTAINS FINDINGS THAT MAY BE CRITICAL TO PATIENT CARE. The findings were verbally communicated via telephone conference with NEFTALY GOMEZ at 7:38 PM EDT on 11/08/2023. The findings were acknowledged and understood.
--- NOTE | 2023-11-08 17:43 | ED_ITS ---
Discharge Plan Disposition Patient Disposition: Home, Self-Care Prescriptions Prescriptions: New oxycodone 5 mg tablet 5 mg PO Q8H PRN (Reason: pain (scale score 7-10)) Qty: 6 0RF No Action promethazine 12.5 mg tablet 12.5 mg PO Q6H PRN (Reason: nausea and vomiting) Qty: 20 1RF ibuprofen 800 mg tablet See Rx Instructions .ROUTE .COMPLEX Qty: 90 0RF Dose Instruction: TAKE 1 TABLET BY MOUTH THREE TIMES DAILY NEEDED FOR PAIN Rx Instructions: TAKE 1 TABLET BY MOUTH THREE TIMES DAILY NEEDED FOR PAIN hydrocodone-acetaminophen 5-325 mg tablet 1 tab PO Q6H PRN (Reason: pain) Qty: 10 0RF Referrals Follow up/Referrals: Porsha Mullins PA [Primary Care Provider] - See instructions Activity Restrictions/Add. Instructions Additional Instructions/Restrictions: At this time it was felt you are safe to be discharged home. If new or worsening symptoms please do not hesitate to return the emergency department. Please take your medications as prescribed and follow-up with your OB in 48 hours as discussed. Clinical Impressions Clinical Impression: Ectopic , Abdominal pain Discharge ED Provider: Denzel Linda General Adult HPI General Chief complaint: Vaginal Bleeding Stated complaint: sent by Dr. Caldwell poss miscarriage Time Seen by Provider: 11/08/23 17:30 Mode of Arrival: Ambulatory Source of Information: Patient Limitations: No Limitations Description of Symptoms (Recalled from ER Triage Doc. by RN): patient ambulatory to ED with spouse. She was sent to the ER by Dr. Caldwell office for confirmed ectopic , heavy bleeding, and LLQ pain/ lower back pain. Patient reports that she is saturating a pad every 3 hours, with clots present. Bleeding has continued x 1 week. History of Present Illness HPI narrative: Patient is a 33-year-old female EGA 9 weeks, previous ruptured ectopic on the right status post salpingectomy, current left-sided ectopic status post methotrexate who presents emergency department for evaluation of worsening abdominal pain and bleeding. Patient has been passing clots since her methotrexate on Thursday approximately 1 pad every 3 hours. She has had worsening severe cramping abdominal pain that is refractory to Lortab which was prescribed to her. 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 Related Data Previous Rx's Medication Instructions Recorded ibuprofen 800 mg tablet See Rx Instructions .Route 04/22/23 .COMPLEX #90 tabs promethazine 12.5 mg tablet 12.5 mg PO Q6H PRN nausea and 10/30/23 vomiting #20 tabs hydrocodone 5 mg-acetaminophen 325 1 tab PO Q6H PRN pain #10 tabs 11/05/23 mg tablet oxycodone 5 mg tablet 5 mg PO Q8H PRN pain (scale score 11/08/23 7-10) #6 tabs Allergies Allergy/AdvReac Type Severity Reaction Status Date / Time amoxicillin Allergy Mild Verified 11/04/23 16:12 Sulfa (Sulfonamide Allergy Mild Rash Verified 11/04/23 16:12 Antibiotics) adhesive Allergy Blisters Verified 11/04/23 16:12 adhesive tape Allergy Rash Verified 11/04/23 16:12 PFSH PFSH Disclaimer: The information contained in this section may have been updated after the patient was seen, as this information can be updated by other users. 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 Surgical History History of salpingectomy right cornual resection and right salpingectomy 03/13/21 History of left knee surgery Hx of hand surgery History of cholecystectomy Family History Other Family history of cancer Family history of diabetes mellitus type II Family history of myocardial infarction Family history of stroke Social History Smoking Status: Never smoker second hand exposure: No alcohol intake: never substance use type: denies use current occupational status: employed Travel in the last 8 weeks: None household members: spouse and children housing: house marital status: education level: high school service: No current occupation: [employer] current occupational exposures/hazards: No caffeine: Yes special ben needs: No agree to transfusion: No do you feel safe at home: Yes victim of physical abuse: No victim of emotional abuse: No victim of sexual abuse: No would you like helpful sources: No ROS Obtained: Yes Systems reviewed as appropriate & no additional complaints except as documented Physical Exam General General appearance: alert and other (Tearful) Head Head exam: atraumatic and normocephalic Eye Eye exam: Present PERRL ENT ENT exam: Present mucous membranes moist Neck Neck exam: Present normal inspection Chest Chest inspection: Present normal inspection and symmetric chest wall rise Respiratory Respiratory exam: Present normal lung sounds bilaterally; Absent respiratory distress Cardiovascular Cardiovascular exam: Present regular rate and normal rhythm Abdominal Exam Abdominal exam: Present soft and tenderness (Bilateral lower quadrant); Absent rebound or rigidity Extremities Exam Extremities exam: Present normal inspection Neurological Exam Neurological exam: Present alert Psychiatric Psychiatric exam: Present normal affect Skin Skin exam: Present warm and dry Medical Decision Making Edwin Inquiry Pt receiving controlled substance: No Vital Signs: 11/08/23 17:30 11/08/23 19:00 11/08/23 19:26 Temperature 98.2 F Temperature Source Oral Pulse Rate 75 80 Pulse Rate [Right] 80 Respiratory Rate 15 Blood Pressure 128/74 125/72 Blood Pressure [Right Arm] 137/89 Blood Pressure Mean 84 82 Blood Pressure Mean [Right Arm] 105 Blood Pressure Source [Right Arm] Automatic Cuff Blood Pressure Position [Right Arm] Sitting 02 Sat by Pulse Oximetry 100 99 96 Oxygen Delivery Method Room Air Room Air Room Air 11/08/23 19:31 11/08/23 19:54 11/08/23 20:00 Temperature Temperature Source Pulse Rate 73 67 70 Pulse Rate [Right] Respiratory Rate Blood Pressure 123/69 116/61 108/61 L Blood Pressure [Right Arm] Blood Pressure Mean 81 79 70 Blood Pressure Mean [Right Arm] Blood Pressure Source [Right Arm] Blood Pressure Position [Right Arm] 02 Sat by Pulse Oximetry 96 95 96 Oxygen Delivery Method Room Air Lab Data Lab Results 11/08/23 17:45: WBC 8.5, RBC 4.81, Hgb 14.2, Hct 42.7, MCV 88.8, MCH 29.6, MCHC 33.4, RDW 14.2, Plt Count 198, MPV 8.8, Neut % (Auto) 74.0, Lymph % (Auto) 20.6, [place] % (Auto) 3.5, Eos % (Auto) 1.1, Baso % (Auto) 0.8, Neut # (Auto) 6.3, Lymph # (Auto) 1.7, [place] # (Auto) 0.3, Eos # (Auto) 0.1, Baso # (Auto) 0.1, Sodium 137, Potassium 3.9, Chloride 104, Carbon Dioxide 28, Anion Gap 8.9, BUN 9, Creatinine 0.90, Estimated Creat Clear 146, Estimated GFR 73, Est GFR ( Amer) 88, Glucose 103 H, Calcium 9.5, Total Bilirubin 0.5, AST 67 H, ALT 74, Alkaline Phosphatase 69, Total Protein 7.8, Albumin 4.5, Globulin 3.3 H, Albumin/Globulin Ratio 1.4, HCG, Quant 2126 H, Blood Type A Positive, Antibody Screen Negative 11/08/23 17:45 11/08/23 17:45 Orders (Tests/Meds): ED MEDICATIONS Generic Name Dose Route Start Last Admin Trade Name Freq PRN Reason Stop Dose Admin Sodium Chloride 10 ml 11/08/23 18:34 Sodium Chloride 0.9% 10ml Flush Syringe IV 12/08/23 18:33 NEEDED PRN Maintain IV Site Discontinued Medications Generic Name Dose Route Start Last Admin Trade Name Freq PRN Reason Stop Dose Admin Acetaminophen 1,000 mg 11/08/23 17:48 11/08/23 18:00 Acetaminophen 500mg Tab PO 11/08/23 17:49 1,000 mg ONCE ONE Administration Morphine Sulfate 4 mg 11/08/23 17:48 11/08/23 18:00 Morphine 4mg/Ml Syringe IV 11/08/23 17:49 4 mg ONCE ONE Administration Morphine Sulfate 4 mg 11/08/23 19:03 11/08/23 19:22 Morphine 4mg/Ml Syringe IV 11/08/23 19:04 4 mg ONCE ONE Administration Ondansetron HCl 4 mg 11/08/23 17:48 11/08/23 18:00 Ondansetron 4mg/2ml Vial IV 11/08/23 17:49 4 mg ONCE ONE Administration Oxycodone HCl 5 mg 11/08/23 19:49 11/08/23 19:51 Oxycodone 5mg Immediate Release Tablet PO 11/08/23 19:50 5 mg ONCE ONE Administration ORDERS Category Date Time Status Type and Screen Stat BBK 11/08/23 17:45 Completed POCUS Point of Care (ER Only) Stat Exams 11/08/23 17:32 Taken Beta HCG, Quant [HCG,Quantitative] Stat Lab 11/08/23 17:45 Completed CBC w/Auto Diff [Complete Blood Count Auto Diff] Stat Lab 11/08/23 17:45 Completed CMP [Comprehensive Metabolic Panel] Stat Lab 11/08/23 17:45 Completed US OB transvaginal Stat Ultrasound 11/08/23 17:31 Completed Medical Decision Narrative: In summary patient is a 33-year-old female with past medical history described above who presents emergency department for evaluation of abdominal pain in the setting of ectopic status post methotrexate recently with passage of clots. Patient is hemodynamically stable nontoxic-appearing upon arrival, afebrile. Bilateral lower quadrant tenderness is present, no peritonitis, no abdominal rigidity, no rebound or guarding. Patient's hemodynamics do not support hemorrhagic shock although it is known to have discordant low heart rates in the setting of ectopic . [id number] ultrasound at bedside was performed which shows no free fluid in the right upper quadrant and Anderson's pouch. Differential includes ruptured ectopic , appropriate response to medical management, among others. Workup will be conducted with hematologic labs, quant hCG, transvaginal ultrasound, type and screen. Initial inventions include Tylenol, morphine. Initial workup reviewed by me, hematologic labs are nonactionable, no anemia, quant hCG 2125. I had discussion with on-call [facility] radiologist regarding transvaginal ultrasound findings. There is a collection of heterogenous echotexture in the lower uterine segment suggestive of blood products, cystic structure previously noticed in the uterine segment is gone, there are 2 cystic structures associated with the left adnexa 1 likely representing a corpus luteal cyst, 1 unchanged from prior favoring ectopic without pole. The case was discussed with Dr. Caldwell, patient is appropriate for outpatient management as long as pain is manageable. The patient was placed in observation status at 1945. Medical necessity for observational status is assessment of adequate pain control. The patient was provided serial reevaluations. Upon repeat evaluation after oral oxycodone patient had acceptable partial resolution of pain and shared decision-making discussion was had and she wishes to pursue outpatient management at this time. Because of this I feel patient is appropriate and can be discharged with rapid OB follow-up in 48 hours which was discussed with the patient and she was agreeable. Total time in observation 60 minutes. Procedures Miscellaneous Procedure Procedure Performed: Indication: Ectopic and abdominal pain Identified structures: Liver, kidney Findings: Liver and kidney identified, no free fluid in Morison's pouch or about the caudal edge of the liver. Images were saved to permanent archive The study was technically adequate CPT 23544-77 This study was performed by me, and I personally interpreted all images/videos. Based on my clinical judgement, these images were [adequate/inadequate] and [did/did not] necessitate further imaging. Critical Care Critical Care Time Critical Care Time: No
--- NOTE | 2023-11-08 17:55 | PC.NURSE ---
Pt ambulatory to bathroom and changed into gown
[2023-11-08 17:58] LABS: Basophils # 0.1 K/mm3 (0-0.2); Basophils % 0.8 % (0.1-2.0); Eosinophils # 0.1 K/mm3 (0.0-0.4); Eosinophils % 1.1 % (0.1-12.0); Hematocrit 42.7 % (37.0-47.0); Hemoglobin 14.2 g/dL (12.2-16.2); Lymphocytes # 1.7 K/mm3 (0.7-4.5); Lymphocytes % 20.6 % (10-50); Mean Corpuscular HGB Conc 33.4 g/dL (31.8-35.4); Mean Corpuscular Hemoglobin 29.6 pg (27.0-31.2); Mean Corpuscular Volume 88.8 fl (81-99); Mean Platelet Volume 8.8 fl (7.4-10.4); Monocytes # 0.3 K/mm3 (0.1-1.0); Monocytes % 3.5 % (1.7-9.3); Neutrophils # 6.3 K/mm3 (1.8-7.8); Platelet Count 198 K/mm3 (142-424); Red Blood Count 4.81 M/mm3 (4.20-5.40); Red Cell Distribution Width 14.2 % (11.5-17.5); White Blood Count 8.5 K/mm3 (4.8-10.8)
[2023-11-08] MEDS: ONDANSETRON 4MG/2ML VIAL 4 MG IV (18:00)
[2023-11-08] MEDS: ACETAMINOPHEN 500MG TAB 1000 MG PO (18:00)
[2023-11-08] MEDS: MORPHINE 4MG/ML SYRINGE 4 MG IV ×2 (18:00→19:22)
--- NOTE | 2023-11-08 18:03 | PC.NURSE ---
pt gone to u/s via wheelchair
[2023-11-08 18:06] LABS: Alanine Aminotransferase 74 U/L (12-78); Albumin Level 4.5 g/dl (3.5-5.0); Albumin/Globulin Ratio 1.4 (1.1-1.8); Alkaline Phosphatase 69 U/L (38-126); Anion Gap 8.9 mEq/L (5-15); Aspartate Amino Transferase 67 U/L (14-36); Bilirubin,Total 0.5 mg/dl (0.2-1.3); Blood Urea Nitrogen 9 mg/dl (7-17); Carbon Dioxide 28 mmol/L (22.0-30.0); Chloride 104 mmol/L (98-107); Creatinine Clearance Estimated 146 mL/min (50-200); Estimated Glomerular Filt Rate 73 ml/min (>60); GFR (African American) 88 ML/MIN (>60); Globulin 3.3 g/dL (1.3-3.2); Potassium 3.9 mmoL/L (3.5-5.1); Sodium 137 mmol/L (136-145); Total Protein,Serum 7.8 g/dl (6.3-8.2)
[2023-11-08 18:07] LABS: Calcium 9.5 mg/dl (8.4-10.2); Glucose 103 mg/dl (74-100)
[2023-11-08 18:23] LABS: HCG,Quantitative 2126 mIU/ml (0-5.42)
--- NOTE | 2023-11-08 18:40 | PC.NURSE ---
pt returned from u/s
--- NOTE | 2023-11-08 19:29 | PC.NURSE ---
rounded on patient, no needs at this time
--- NOTE | 2023-11-08 19:39 | PC.NURSE ---
Paged Dr. Caldwell to Dr. Link ext. [phone]
--- NOTE | 2023-11-08 19:46 | PC.NURSE ---
pt reports adequate pain relief with morphine.
[2023-11-08] MEDS: OXYCODONE 5MG IMMEDIATE RELEASE TABLET 5 MG PO (19:51)
--- NOTE | 2023-11-08 20:06 | PC.NURSE ---
rounded on patient, no needs
== END 2023-11-08 21:41 | disposition home or self-care (01) ==
PROVIDERS: Emergency Provider Emergency Medicine; PCP Physician Assistant
DX: R10.9 Unspecified abdominal pain (principal); O00.90 Unspecified ectopic pregnancy without intrauterine pregnancy
CPT/HCPCS: 76817; 80053; 84702; 85025; 86850; 96374; 96375; 96376; 99285; J2405

== ENCOUNTER 2023-11-10 11:09 | Outpatient (CLI) | payer MEDICAID, SELFPAY ==
[2023-11-10 12:28] LABS: HCG,Quantitative 1482 mIU/ml (0-5.42)
== END 2023-11-10 23:59 ==
LOC: LAB 11:09
PROVIDERS: PCP Physician Assistant; Visit Provider Obstetrics & Gynecology
DX: Z51.81 Encounter for therapeutic drug level monitoring (principal); Z79.631 Long term (current) use of antimetabolite agent
CPT/HCPCS: 36415; 84702

== ENCOUNTER 2023-11-16 10:17 | Outpatient (CLI) | payer MEDICAID, SELFPAY ==
[2023-11-16 11:29] LABS: HCG,Quantitative 704 mIU/ml (0-5.42)
== END 2023-11-16 23:59 ==
PROVIDERS: PCP Physician Assistant; Visit Provider Obstetrics & Gynecology
DX: O00.80 Other ectopic pregnancy without intrauterine pregnancy (principal)
CPT/HCPCS: 36415; 84702

== ENCOUNTER 2023-12-08 09:29 | Outpatient (CLI) | payer MEDICAID, SELFPAY ==
[2023-12-08 09:58] LABS: Basophils # 0.1 K/mm3 (0-0.2); Basophils % 0.7 % (0.1-2.0); Eosinophils # 0.1 K/mm3 (0.0-0.4); Eosinophils % 1.4 % (0.1-12.0); Hematocrit 39.4 % (37.0-47.0); Lymphocytes # 2.2 K/mm3 (0.7-4.5); Mean Corpuscular HGB Conc 33.1 g/dL (31.8-35.4); Mean Corpuscular Hemoglobin 28.8 pg (27.0-31.2); Mean Corpuscular Volume 86.9 fl (81-99); Mean Platelet Volume 8.8 fl (7.4-10.4); Monocytes # 0.4 K/mm3 (0.1-1.0); Monocytes % 4.9 % (1.7-9.3); Neutrophils # 5.3 K/mm3 (1.8-7.8); Platelet Count 195 K/mm3 (142-424); Red Blood Count 4.54 M/mm3 (4.20-5.40); Red Cell Distribution Width 14.4 % (11.5-17.5); White Blood Count 8.1 K/mm3 (4.8-10.8)
[2023-12-08 10:56] LABS: Alanine Aminotransferase 18 U/L (12-78); Albumin Level 4.2 g/dl (3.5-5.0); Albumin/Globulin Ratio 1.5 (1.1-1.8); Alkaline Phosphatase 55 U/L (38-126); Anion Gap 11.8 mEq/L (5-15); Aspartate Amino Transferase 27 U/L (14-36); Bilirubin,Total 0.3 mg/dl (0.2-1.3); Blood Urea Nitrogen 12 mg/dl (7-17); Calcium 9.5 mg/dl (8.4-10.2); Carbon Dioxide 26 mmol/L (22.0-30.0); Chloride 110 mmol/L (98-107); Estimated Glomerular Filt Rate 84 ml/min (>60); GFR (African American) 101 ML/MIN (>60); Globulin 2.8 g/dL (1.3-3.2); Glucose 92 mg/dl (74-100); Potassium 3.8 mmoL/L (3.5-5.1); Sodium 144 mmol/L (136-145)
[2023-12-08 11:18] LABS: HCG,Quantitative < 2 mIU/ml (0-5.42)
== END 2023-12-08 23:59 | disposition home or self-care (01) ==
LOC: LAB 09:29
PROVIDERS: PCP Physician Assistant; Visit Provider Obstetrics & Gynecology
DX: O00.90 Unspecified ectopic pregnancy without intrauterine pregnancy (principal); Z51.81 Encounter for therapeutic drug level monitoring; Z79.631 Long term (current) use of antimetabolite agent
CPT/HCPCS: 36415; 80053; 84702; 85025

== ENCOUNTER 2024-06-22 11:43 | Outpatient (CLI) | payer MEDICAID, SELFPAY ==
--- NOTE | 2024-06-22 11:49 | XR_ITS ---
FINAL REPORT CLINICAL HISTORY: .knee pain COMPARISON: None FINDINGS: Three views of the left knee reveal no evidence of fracture or dislocation. The bony alignment is normal. The joint spaces are preserved. There is no evidence of joint effusion. No localized soft tissue abnormality is seen. IMPRESSION: No acute abnormality identified. Reviewed, Interpreted and Dictated by Jigar Berumen III, MD Transcribed by Stacy Mattson Authenticated and [facility]
== END 2024-06-22 23:59 | disposition home or self-care (01) ==
LOC: RAD 11:47
PROVIDERS: Visit Provider Orthopaedic Surgery
DX: M25.562 Pain in left knee (principal)
CPT/HCPCS: 73562

== ENCOUNTER 2024-07-21 13:48 | Outpatient (CLI) | payer OTHER, MEDICAID, SELFPAY ==
--- NOTE | 2024-07-21 13:49 | MR_ITS ---
FINAL REPORT CLINICAL HISTORY: left knee pain. PRIOR HX KNEE SURGERY 1 YEAR AGO. TWISTED KNEE AND POSTERIOR KNEE PAIN. KNEE INSTABILITY. FINDINGS: Multiplanar MR imaging of the right knee was performed without contrast. There is medial meniscal degeneration without evidence of a tear. The lateral meniscus is intact. The anterior and posterior cruciate ligaments are intact. The medial collateral ligament and lateral ligamentous complex are intact. The patellar and quadriceps tendons are intact. There is mild medial compartment chondromalacia. There are osteochondral lesions of the medial femoral condyle and medial tibial plateau. Mild patellar chondromalacia is identified. Small joint effusion is seen. The musculature is intact. No soft tissue mass or cyst is identified. IMPRESSION: Degenerative change and chondromalacia. Osteochondral lesions of the medial femoral condyle and medial tibial plateau. Reviewed, Interpreted and Dictated by Jigar Berumen III, MD Transcribed by Michelle Angeles Authenticated and . [facility]
== END 2024-07-21 23:59 | disposition home or self-care (01) ==
LOC: RAD 13:49
PROVIDERS: PCP Physician Assistant; Visit Provider Physician Assistant
DX: M25.562 Pain in left knee (principal); M23.92 Unspecified internal derangement of left knee
CPT/HCPCS: 73721

== ENCOUNTER 2024-10-28 16:17 | Outpatient (CLI) | payer BC, MEDICAID, SELFPAY ==
[2024-10-28 18:05] LABS: HCG,Quantitative 640 mIU/ml (0-5.42)
[2024-10-29 08:20] LABS: Progesterone 30.2 ng/mL (.)
== END 2024-10-28 23:59 | disposition home or self-care (01) ==
LOC: LAB 16:18
PROVIDERS: Visit Provider Obstetrics & Gynecology
DX: O00.90 Unspecified ectopic pregnancy without intrauterine pregnancy (principal); O36.80X0 Pregnancy with inconclusive fetal viability, not applicable or unspecified
CPT/HCPCS: 36415; 84144; 84702

== ENCOUNTER 2024-11-01 14:20 | Outpatient (CLI) | payer BC, MEDICAID, SELFPAY ==
[2024-11-01 16:57] LABS: HCG,Quantitative 3579 mIU/ml (0-5.42)
== END 2024-11-01 23:59 | disposition home or self-care (01) ==
LOC: LAB 14:21
PROVIDERS: Visit Provider Obstetrics & Gynecology
DX: Z34.91 Encounter for supervision of normal pregnancy, unspecified, first trimester (principal); Z3A.01 Less than 8 weeks gestation of pregnancy
CPT/HCPCS: 36415; 84702

== ENCOUNTER 2024-11-03 14:45 | Outpatient (CLI) | payer MEDICAID, SELFPAY ==
--- NOTE | 2024-11-03 14:55 | US_ITS ---
PROCEDURE: US OB <= 14 WEEKS FETUS CLINICAL INDICATION: viability. hx of ectopic COMPARISON: US US TRANSVAGINAL from 09/17/2023 US US OB TRANSVAGINAL from 11/08/2023 FINDINGS: Transvaginal sonographic images of the pelvis were obtained. From her last menstrual period she is 5weeks 1day. An intrauterine gestational sac is present with a pole. This correlates to a gestational age of 5weeks 2days. heart tones are are not seen today. Yolk sac is not noted. The right ovary is seen and appears normal. The left ovary is seen and appears normal. There is a corpus luteum in the left ovary. There is no fluid in the cul-de-sac. IMPRESSION: 1. A gestational sac is seen within the uterine cavity in the right side of the uterus. The gestational sac measures 5 weeks and 2 days which is consistent with her last menstrual period. 2. The eggs inspector commented that the patient had a bicornuate uterus but this was not seen on previous ultrasounds. 3. A very small embryo is seen but heart rate activity is not visualized yet. 4. Suggest repeat scan in 1 week to confirm viability. 5. Both ovaries are seen and appear normal. There appears to be a corpus luteum on the left ovary. 6. No fluid in the cul-de-sac. Dictated by: Danny Reynolds MD 11/03/2024 18:04 Danny Reynolds MD in [place] 11/03/2024 18:04
== END 2024-11-03 23:59 | disposition home or self-care (01) ==
LOC: RAD 14:46
PROVIDERS: PCP Obstetrics & Gynecology; Visit Provider Obstetrics & Gynecology
DX: O36.80X0 Pregnancy with inconclusive fetal viability, not applicable or unspecified (principal); Z87.59 Personal history of other complications of pregnancy, childbirth and the puerperium; Z3A.01 Less than 8 weeks gestation of pregnancy
CPT/HCPCS: 76801

== ENCOUNTER 2024-11-07 14:48 | Outpatient (CLI) | payer BC, MEDICAID, SELFPAY ==
[2024-11-07 17:02] LABS: HCG,Quantitative 16067 mIU/ml (0-5.42)
== END 2024-11-07 23:59 | disposition home or self-care (01) ==
LOC: LAB 14:48
PROVIDERS: Visit Provider Obstetrics & Gynecology
DX: O09.899 Supervision of other high risk pregnancies, unspecified trimester (principal); O34.00 Maternal care for unspecified congenital malformation of uterus, unspecified trimester; Q51.3 Bicornate uterus; Z3A.01 Less than 8 weeks gestation of pregnancy
CPT/HCPCS: 36415; 84702

== ENCOUNTER 2024-11-11 13:01 | Outpatient (CLI) | payer BC, MEDICAID, SELFPAY ==
--- NOTE | 2024-11-11 13:00 | US_ITS ---
PROCEDURE: US OB <= 14 WEEKS FETUS CLINICAL INDICATION: schedule for 1 week; dates and viability COMPARISON: US US OB <= 14 WEEKS FETUS from 11/03/2024 FINDINGS: Transvaginal sonographic images of the pelvis were obtained. From her last menstrual period she is 6weeks 2days. An intrauterine gestational sac is present with a pole with a crown-rump length of 0.43cm This correlates to a gestational age of 6weeks 1day. ANIL will remain 07/05/2025. heart tones are present with an FHR of 115bpm. Yolk sac is noted. The yolk sac measures 3.8 mmmm. The right ovary is seen and appears normal. The left ovary is seen and appears normal. There is a corpus luteum in the left ovary measuring 2.2 cm. There is no fluid in the cul-de-sac. IMPRESSION: 1. Viable embryo within the uterine cavity. heart activity is seen. 2. The embryo measures 6 weeks and 1 day and this is consistent with her last menstrual period. The ANIL will remain 07/05/2025. 3. Both ovaries are seen and appear normal. There is a corpus luteum in the left ovary. 4. No fluid in the cul-de-sac. Dictated by: Danny Reynolds MD 11/11/2024 17:21 Danny Reynolds MD in [facility] 11/11/2024 17:21
== END 2024-11-11 23:59 | disposition home or self-care (01) ==
LOC: RAD 13:02
PROVIDERS: Visit Provider Obstetrics & Gynecology
DX: Z36.87 Encounter for antenatal screening for uncertain dates (principal); O20.9 Hemorrhage in early pregnancy, unspecified; Z3A.01 Less than 8 weeks gestation of pregnancy
CPT/HCPCS: 76801

== ENCOUNTER 2024-11-14 15:40 | Outpatient (CLI) | payer BC, MEDICAID, SELFPAY ==
[2024-11-14 17:45] LABS: HIV Combo NEGATIVE (Negative)
[2024-11-14 17:53] LABS: Hepatitis C Ab Qual. W/ RFX NEGATIVE (Negative)
[2024-11-14 20:47] LABS: Basophils % 0.4 % (0.1-2.0); Eosinophils # 0.3 K/mm3 (0.0-0.4); Hematocrit 40.1 % (37.0-47.0); Hemoglobin 13.5 g/dL (12.2-16.2); Lymphocytes # 2.1 K/mm3 (0.7-4.5); Lymphocytes % 21.3 % (10-50); Mean Corpuscular HGB Conc 33.7 g/dL (31.8-35.4); Mean Corpuscular Hemoglobin 28.4 pg (27.0-31.2); Mean Corpuscular Volume 84.4 fl (81-99); Mean Platelet Volume 12.1 fl (7.4-10.4); Monocytes # 0.7 K/mm3 (0.1-1.0); Monocytes % 7.4 % (1.7-9.3); Neutrophils # 6.7 K/mm3 (1.8-7.8); Neutrophils % 67.9 % (37.0-80.0); Platelet Count 157 K/mm3 (142-424); Red Blood Count 4.75 M/mm3 (4.20-5.40); Red Cell Distribution Width 13.2 % (11.5-17.5); White Blood Count 9.8 K/mm3 (4.8-10.8)
[2024-11-15 05:14] LABS: Hepatitis B Surface Antigen Negative (Negative)
[2024-11-15 06:29] LABS: Rubella Antibodies, IgG 2.61 index (Immune >0.99)
[2024-11-15 07:19] LABS: RPR W/RFX Titers Nonreactive (Nonreactive)
== END 2024-11-14 23:59 | disposition home or self-care (01) ==
LOC: LAB 15:41
PROVIDERS: Visit Provider Obstetrics & Gynecology
DX: Z34.01 Encounter for supervision of normal first pregnancy, first trimester (principal)
CPT/HCPCS: 36415; 85025; 86592; 86762; 86803; 86850; 87340; 87389

== ENCOUNTER 2025-02-20 10:23 | Outpatient (CLI) | payer BC, MEDICAID, SELFPAY ==
--- NOTE | 2025-02-20 10:30 | US_ITS ---
PROCEDURE: US OB /MATERNAL DETAIL CLINICAL INDICATION: 20 week Anantomy Scan-US OB Complete COMPARISON: US US OB <= 14 WEEKS FETUS from 11/03/2024 US US OB <= 14 WEEKS FETUS from 11/11/2024 FINDINGS: Transabdominal sonographic images of the pelvis were obtained. From her established due date she is 20 weeks 5 days. Single viable intrauterine gestation. Cephalic position. Placenta: Anteriorplacenta grade 1. There is an average amount of fluid. The cervix appears satisfactory. Closed and measuring 3.35 cm in length. Complete survey performed and was unremarkable on the submitted images as in PACS. No discrete anomalies identified on survey imaging by technologist. Active fetus. Three-vessel cord with satisfactory umbilical cord insertion. 4- chamber heart noted. Situs, aortic arch, LVOT, RVOT, three-vessel view appear normal. There is a small intracardiac echogenic foci within the left ventricle. Survey of brain & ventricles Unremarkable. Cerebellum, thalamus, choroid plexus, cisterna magna appear normal. Face and neck survey unremarkable. Profile, nasion, lips and nose appeared normal. Diaphragm and chest views unremarkable. Abdomen: Both kidneys noted and unremarkable. Stomach and bladder noted and satisfactory. Spine: Survey of the spine satisfactory with no anomalies identified nor imaged. Cervical, thoracic, lower spine appear normal. Both arms and legs noted. Amniotic Fluid: Adequate. MVP 3.1 cm Measurements: Average ultrasound age 21weeks 6days. Estimated due date by ultrasound age 1106/27/2025. Estimated weight 462g BPD = 21weeks 4days HC = 21weeks 3days AC = 22weeks 2days FL = 21weeks 6days Growth Percentile= 96 Heart Rate = 138bpm Cerebellum = 20weeks 3days Humerus = 20weeks 6days HC/AC is 1.11 FL/BPD is 0.73 FL/AC is 0.22 IMPRESSION: 1. Viable fetus in the cephalic presentation with an anterior placenta grade 1. 2. The fluid is within normal limits with an MVP 3.1 cm. 3. Anatomical scan appears normal. 4. There is a small intracardiac echogenic foci within the left ventricle. The cardiac examination was difficult to obtain and would suggest a follow-up ultrasound at 24 weeks to repeat the anatomy scan of the heart. 5. biometry is consistent with a dates. Dictated by: Danny Reynolds MD 02/20/2025 15:04 Danny Reynolds MD in [place] 02/20/2025 15:04
== END 2025-02-20 23:59 | disposition home or self-care (01) ==
LOC: RAD 10:24
PROVIDERS: Visit Provider Obstetrics & Gynecology
DX: O28.3 Abnormal ultrasonic finding on antenatal screening of mother (principal); O09.292 Supervision of pregnancy with other poor reproductive or obstetric history, second trimester; O34.02 Maternal care for unspecified congenital malformation of uterus, second trimester; Q51.3 Bicornate uterus; Z3A.20 20 weeks gestation of pregnancy
CPT/HCPCS: 76811

== ENCOUNTER 2025-03-20 10:16 | Outpatient (CLI) | payer BC, MEDICAID, SELFPAY ==
--- NOTE | 2025-03-20 10:15 | US_ITS ---
PROCEDURE: US OB FOLLOW UP CLINICAL INDICATION: repeat anatomy scan heart views COMPARISON: US US OB <= 14 WEEKS FETUS from 11/03/2024 US US OB <= 14 WEEKS FETUS from 11/11/2024 US US OB /MATERNAL DETAIL from 02/20/2025 FINDINGS: Transabdominal sonographic images of the pelvis were obtained. The following parameters are obtained: From her established due date she is 24weeks 5days Viable fetus in the breech presentation with an anterior placenta grade 1. The cervix measures 3.26 cm heart rate: 146bpm bpm. Amniotic fluid: Subjectively the fluid appears normal No obvious anomalies evident. profile seen, stomach, bladder, kidneys, three-vessel cord, four chamber heart appear normal. heart: Three-vessel view, RVOT, LVOT four-chamber heart appear normal. There continues to be a small intracardiac echogenic foci within the left ventricle. Suggest follow-up. IMPRESSION: 1. Viable fetus in the breech presentation with an anterior placenta grade 1. 2. The fluid subjectively appears normal. 3. Limited anatomical scan appears normal. 4. Complete cardiac scan today appears normal. There continues to be a small intracardiac echogenic foci. Suggest follow-up in 4 weeks. Dictated by: Danny Reynolds MD 03/20/2025 16:47 Danny Reynolds MD in [place] 03/20/2025 16:47
== END 2025-03-20 23:59 | disposition home or self-care (01) ==
LOC: RAD 10:17
PROVIDERS: PCP Obstetrics & Gynecology; Visit Provider Obstetrics & Gynecology
DX: O32.1XX0 Maternal care for breech presentation, not applicable or unspecified (principal); O28.3 Abnormal ultrasonic finding on antenatal screening of mother; Z36.2 Encounter for other antenatal screening follow-up; Z3A.24 24 weeks gestation of pregnancy
CPT/HCPCS: 76816

== ENCOUNTER 2025-04-20 08:28 | Outpatient (CLI) | payer BC, MEDICAID, SELFPAY ==
--- OUTSIDE RECORDS SUMMARY | 2025-04-20 08:43 | XMS_ITS | Clinical Summary ---
Author Organization [facility] Address [address] [place] [id number] Care Team Providers Care Structural Steel Detailer Name Role Phone Porsha Mullins Primary Care Provider [phone] Allergies Active Allergy Reactions Criticality Noted Date Comments Amoxicillin Rash Low 11/04/2023 Sulfa Antibiotics Swelling High 09/15/2019 Medications promethazine (PHENERGAN) 25 MG tablet Take 25 mg by mouth Every 6 (Six) Hours As Needed for Nausea or Vomiting. Active UU-Cgn-XH-[place] -3 ( GUMMIES/DHA & FA) 0.4-32.5 MG chewable tablet Chew. Acti ve enoxaparin (LOVENOX) 40 MG/0.4ML solution syringe Inject 40 mg under the skin into the appropriate area as directed Daily. Active valACYclovir (VALTREX) 500 MG tablet Take by mouth Daily. 0 Active FEROSUL 325 (65 Fe) MG tablet Take by mouth Daily. 0 Active NIFEdipine (PROCARDIA) 10 MG capsule Take 20 mg by mouth Every 6 (Six) Hours. For contractions 0 Active Active Problems Problem Noted Date Diagnosed Date Ammon-Savage syndrome 02/02/2020 Teratogen exposure in current 10/27/19 20 Family history of genetic disease 10/27/2019 Family history of congenital anomalies 0 History of DVT of lower extremity 09/15/2019 09/15/2019 Estimated Date of Delivery Comme nts Yes 07/05/2025 Social History Tobacco Use Types Packs/Day Years Used Date Smoking Tobacco: Never Smokeless Tobacco: Never Tobacco Cessation:Counseling Given: No Alcohol Use Standard Drinks/Week Comments Not Currently 0 (1 standard drink = 0.6 oz pur e alcohol) Estimated Date of Delivery Comme nts Yes 07/05/2025 Sex and Gender Information Value Date Recorded Sex Assigned at Not on file Legal Sex Female 1:34 PM EST Gender Identity Not on file Sexual Orientation Not on file Last Filed Vital Signs Vital Sign Reading Time Taken Comments Blood Pressure 130/83 11/04/2023 7:31 PM EDT Pulse 73 11/04/2023 7:31 PM EDT Temperature 37.1 C (98.7 F) 11/04/2023 7:31 PM EDT Respiratory Rate 18 11/04/2023 7:31 PM EDT Oxygen Saturation 99% 11/04/2023 7:31 PM EDT Inhaled Oxygen Concentration - - Weight 102 kg (225 lb) 11/04/2023 7:31 PM EDT Height 165.1 cm (5' 5 ) 11/04/2023 7:31 PM EDT Body Mass Index 37.44 11/04/2023 7:31 PM EDT Plan of Treatment Upcoming Encounters Date Type Department Care Team (Late st Contact Info) Description 05/12/2025 9:30 AM EDT Office Visit [facility] [address] [facility] [address] [place] [address] 05/12/2025 9:30 AM EDT Appointment [facility] [address] [place] [address] Health Maintenance Due Date Last Done Comments Annual Gynecologic Pelvic an d Breast Exam 1992 PAP SMEAR 2013 TDAP/TD VACCINES (2 - Tdap) 03/31/2015 03/31/2005 ANNUAL PHYSICAL 09/15/2019 HEPATITIS C SCREENING 09/15/2019 COVID-19 Vaccine ( - 2023-2 5 season) 2025 RSV Vaccine - Adults (1 - Ri sk 1-dose series) 05/10/2025 INFLUENZA VACCINE 05/17/2025 Pneumococcal Vaccine 0-49 Aged Out No longer eligible based on patient's age to complete this topic Insurance [facility] Care Teams Structural Steel Detailer Relationship Specialty Start Date End Date Porsha Mullins PA PCP - General Physician Supervisor [employer] 11/04/23
--- NOTE | 2025-04-20 08:45 | US_ITS ---
PROCEDURE: US OB FOLLOW UP CLINICAL INDICATION: cardiac views and growth COMPARISON: US US OB <= 14 WEEKS FETUS from 11/03/2024 US US OB <= 14 WEEKS FETUS from 11/11/2024 US US OB /MATERNAL DETAIL from 02/20/2025 US OB FOLLOW UP from 03/20/2025 FINDINGS: Transabdominal sonographic images of the pelvis were obtained. The following parameters are obtained: From her established due date she is 29weeks 1day Viable fetus in the cephalic presentation with an anterior placenta grade 1. The cervix measures heart rate: 138bpm bpm. Average ultrasound age 29 weeks 6 days. Estimated weight 1396 grams, 3 lb 1 oz BPD: 29weeks 5days, 55 percentile HC: 31weeks 0 days, 69 percentile AC: 29weeks 5days, 59 percentile FL: 28weeks 6days, 24 percentile HC/AC: 1.11 FL/BPD: 0.73 FL/AC: 0.21 Growth percentile: 48 Amniotic fluid: MVP 4.54 cm No obvious anomalies evident. profile seen, stomach, bladder, kidneys, three-vessel cord, four chamber heart appear normal. There continues to be a small intracardiac echogenic foci within the left ventricle. It does not appear to have grown in size. IMPRESSION: 1. Viable fetus in the cephalic presentation with an anterior placenta grade 1. 2. The fluid is within normal limits with an MVP 4.54 cm. 3. There has been good interval growth with the fetus currently 48th percentile. 4. There continues to be a small intracardiac echogenic foci within the left ventricle that has not increased in size. 5. Limited anatomical scan appears normal. Dictated by: Danny Reynolds MD 04/21/2025 07:05 Danny Reynolds MD in [place] 04/21/2025 07:05
[2025-04-20 10:04] LABS: Hematocrit 33.2 % (37.0-47.0); Hemoglobin 11.1 g/dL (12.2-16.2); Immature Granulocytes % 0.9 %; Mean Corpuscular HGB Conc 33.4 g/dL (31.8-35.4); Mean Corpuscular Hemoglobin 28.4 pg (27.0-31.2); Mean Corpuscular Volume 84.9 fl (81-99); Nucleated Red Blood Cells % 0 %; Platelet Count 160 K/mm3 (142-424); Red Blood Count 3.91 M/mm3 (4.20-5.40); Red Cell Distribution Width-SD 40.9 fL; White Blood Count 10.5 K/mm3 (4.8-10.8)
[2025-04-20 10:13] LABS: Glucose 1 Hour 129 mg/dL (74-100)
[2025-04-21 07:49] LABS: RPR W/RFX Titers Nonreactive (Nonreactive)
== END 2025-04-20 23:59 | disposition home or self-care (01) ==
LOC: RAD 08:29
PROVIDERS: Visit Provider Obstetrics & Gynecology
DX: O28.3 Abnormal ultrasonic finding on antenatal screening of mother (principal); O34.03 Maternal care for unspecified congenital malformation of uterus, third trimester; O09.293 Supervision of pregnancy with other poor reproductive or obstetric history, third trimester; O99.213 Obesity complicating pregnancy, third trimester; Q51.3 Bicornate uterus; E66.9 Obesity, unspecified; Z86.718 Personal history of other venous thrombosis and embolism; Z3A.29 29 weeks gestation of pregnancy
CPT/HCPCS: 36415; 76816; 82947; 85025; 86592

== ENCOUNTER 2025-04-26 09:33 | Outpatient (CLI) | payer BC, MEDICAID, SELFPAY ==
--- OUTSIDE RECORDS SUMMARY | 2025-04-28 09:37 | XMS_ITS | Clinical Summary ---
Author Organization [facility] Address [address] [place] [id number] Care Team Providers Care Process Engineering Manager Name Role Phone Porsha Mullins Primary Care Provider [phone] Allergies Active Allergy Reactions Criticality Noted Date Comments Amoxicillin Rash Low 11/04/2023 Sulfa Antibiotics Swelling High 09/15/2019 Medications promethazine (PHENERGAN) 25 MG tablet Take 25 mg by mouth Every 6 (Six) Hours As Needed for Nausea or Vomiting. Active VT-Ojt-GX-Rawlins -3 ( GUMMIES/DHA & FA) 0.4-32.5 MG [...] Description 05/12/2025 9:30 AM EDT Office Visit [facility] [address] [facility] [address] [address] [place] [address] 05/12/2025 9:30 AM EDT Appointment [facility] [address] [place] [address] Health Maintenance Due Date Last Done Comments [...] patient's age to complete this topic Insurance [facility] Care Teams Process Engineering Manager Relationship Specialty Start Date End Date Porsha Mullins PA PCP - General Physician Data Input Clerk 11/04/23
== END 2025-04-26 23:59 ==
LOC: LAB.DROPOF 04-28 09:34
PROVIDERS: Visit Provider Obstetrics & Gynecology
DX: O99.210 Obesity complicating pregnancy, unspecified trimester (principal); E66.9 Obesity, unspecified; Z3A.00 Weeks of gestation of pregnancy not specified
CPT/HCPCS: 87086

== ENCOUNTER 2025-05-17 10:18 | Outpatient (CLI) | payer BC, MEDICAID, SELFPAY ==
--- OUTSIDE RECORDS SUMMARY | 2025-05-12 09:21 | XMS_ITS | Encounter Summary ---
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 [place] Heather Mandujano DO [address] [place] [address] Phone: tel: fax: [facility] [address] [place] [address] Phone: tel: Referral ID Status Reason Start Date Expiration Date Visits Re quested Visits Authorized [id number] Closed 04/19/2025 07/19/2026 1 1 Reason for Visit * Diagnostic Imaging (Routine) - Closed Specialty Diagnoses / Procedures Referred By Gay tucker Referred To Contact Radiology Diagnoses Echogenic intracardiac focus of fetus on ultrasound Family history of congenital anomalies History of DVT of lower extremity Ammon-Savage syndrome , 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 Diagnostic [place] Heather Mandujano DO [address] [place] [address] Phone: tel: fax: [facility] [address] [place] [address] Phone: tel: Referral ID Status Reason Start Date Expiration Date Visits Re quested Visits Authorized [id number] Closed 04/19/2025 07/19/2026 1 1 Encounter Details Date Type Department Care Team (Latest Contact Info) Description 05/12/2025 9:21 AM EDT - 05/12/2025 11:59 PM EDT Hospital Encounter [facility] [address] [place] [address] Heather Mandujano DO [address] [place] [id number] Echogenic intracardiac focus of fetus on ultrasound; Family history of congenital anomalies; History of DVT of lower extremity; Ammon-Savage syndrome; , unspecified gestational age; History of delivery, currently Discharge Disposition: Home or Self Care Social History Tobacco Use Types Packs/Day Years Used Date Smoking Tobacco: Never Smokeless Tobacco: Never Alcohol Use Standard Drinks/Week Comments Not Currently 0 (1 standard drink = 0.6 oz pur e alcohol) Estimated Date of Delivery Comme nts Yes 07/05/2025 Date entered lucy or to episode creation Sex and Gender Information Value Date Recorded Sex Assigned at Female 05/12/2025 8:36 AM EDT Legal Sex Female 1:34 PM EST Gender Identity Not on file Sexual Orientation Straight 05/12/2025 8: 36 AM EDT documented as of this encounter Medications at Time of Discharge enoxaparin (LOVENOX) 40 MG/0.4ML solution syringe Inject 0.4 mL under the skin into the appropriate area as directed Daily. FEROSUL 325 (65 Fe) MG tablet Take by mouth Daily. 0 hydrocortisone 1 % cream Apply 1 Application topically to the appropriate area as directed Daily As Needed for Irritation or Rash. 5 NIFEdipine (PROCARDIA) 10 MG capsule Take 2 capsules by mouth Every 6 (Six) Hours. For contractions 0 nitrofurantoin, macrocrystal-monohy drate, (MACROBID) 100 MG capsule Take 1 capsule by mouth 2 (Two) Times a Day. X 7 days 5 ondansetron ODT (ZOFRAN-ODT) 4 MG disintegrating tablet Take 1 tablet by mouth Every 8 (Eight) Hours. pantoprazole (PROTONIX) 40 MG EC tablet Take 1 tablet by mouth Daily. 5 FU-Flx-XU-Rio Dell-3 ( GUMMIES/DHA & FA) 0.4-32.5 MG chewable tablet Chew. promethazine (PHENERGAN) 25 MG tablet Take 25 mg by mouth Every 6 (Six) Hours As Needed for Nausea or Vomiting. valACYclovir (VALTREX) 500 MG tablet Take by mouth Daily. 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 (05/12/2025 11:02 AM EDT) Anatomical Region Laterality Modality Ultrasound 05/12/2025 10:0 9 AM EDT Narrative 05/12/2025 11:09 AM EDT PAT NAME: CHAITANYA TRIMBLE MED REC#: [id number] DA: [id number] PAT GEND: F PAT TYPE: O EXAM ZECHARIAH: [id number] REF PHYS HEATHER MANDUJANO Comparison Studies There are no relevant prior studies to which this study is being compared Patient Status Outpatient Indication ======== Ammon-Savage Syndrome, hx PTD, hx uterine rupture, obesity History ====== General History Height 165 cm Height (ft) 5 ft Height (in) 5 in Other: BMI 29.4 Maternal Assessment Height 165 cm Height (ft) 5 ft Height (in) 5 in Weight 108 kg Weight (lb) 239 lb BMI 39.82 kg/m Method ======= Transabdominal ultrasound examination ========= James . Number of fetuses: 1 Dating ====== Method of dating: based on stated ANIL GA by prior assessment 32 w + 2 d ANIL by prior assessment: 07/05/2025 Ultrasound examination on: 05/12/2025 GA by U/S based upon: AC, BPD, Femur, HC GA by U/S 33 w + 1 d ANIL by U/S: 06/29/2025 Assigned: based on stated ANIL, selected on 05/12/2025 Assigned GA 32 w + 2 d Assigned ANIL: 07/05/2025 length 280 d Biometry Standard BPD 85.1 mm 34w 2d 91% Hadlock OFD 104.8 mm 34w 3d 89% Aniyah HC 303.8 mm 33w 5d 53% Hadlock Cerebellum tr 40.7 mm 32w 4d 36% Hill AC 274.4 mm 31w 4d 27% Hadlock Femur 63.4 mm 32w 5d 51% Hadlock Humerus 55.6 mm 32w 2d 55% Aniyah HC / AC 1.11 EFW 1,957 g 32w 0d 42% Hadlock EFW (lb) 4 lb EFW (oz) 5 oz EFW by: Hadlock (CUB-PI-ZE-FL) Extended Tibia 54.1 mm 31w 6d 47% Aniyah Fibula 52.4 mm 32w 1d 49% Aniyah Radius 45.1 mm 32w 1d 49% Aniyah Ulna 52.4 mm 33w 1d 52% Aniyah Cav. septi pel. tr 6.3 mm Title Inspector 8.3 mm CM 9.3 mm 92% Nicolaides Nasal bone 10.7 mm Head / Face / Neck Cephalic index 0.81 65% Nicolaides Thorax / Lungs Thoracic circ 252.1 mm 86% [place] Thoracic area 50.5 cm ThC / AC 0.92 Heart / Great Vessels Cardiac axis 49 Cardiac circ 131.2 mm Cardiac area 13.6 cm CC / ThC 0.52 CA / Do 0.27 PA main 7.87 mm Rt PA branch 5.18 mm >99% Sharath Lt PA branch 4.70 mm 94% Sharath Ao asc 5.03 mm Ao isthmus 4.6 mm 8% Sharath Ao desc 5.08 mm McGoon Index mod. 1.9 PA main / Ao asc 1.56 IVC 3.39 mm SVC 4.41 mm Extremities / Bony Struc FL / BPD 0.75 FL / HC 0.21 FL / AC 0.23 Other Structures FHR 157 bpm General Evaluation Cardiac activity present. FHR 157 bpm. movements present. Presentation cephalic. Placenta Placental site: anterior. Umbilical cord Cord vessels: 3 vessel cord. Insertion site: placental insertion: normal. Amniotic fluid Amount of AF: normal. MVP 4.8 cm. CHAPO 14.6 cm. Q1 4.8 cm, Q2 3.7 cm, Q3 2.9 cm, Q4 3.3 cm. Anatomy Cranium: Appears normal Midline falx: Appears normal Cavum septi pellucidi: Appears normal Cerebellum: Appears normal Cisterna magna: Appears normal Head / Neck Rt lateral ventricle: Appears normal Lt lateral ventricle: Appears normal Rt choroid plexus: Appears normal Lt choroid plexus: Appears normal Vermis: Appears normal Neck: Appears normal Lips: Appear normal Profile: Appears normal Nose: Appears normal Face Nose: Nasal bone present Palate: visualized Maxilla: visualized Mandible: visualized Orbits: Appears normal Lens: Normal 4-chamber view: Appears normal RVOT view: Appears normal LVOT view: Appears normal Heart / Thorax Aortic arch view: Appears normal Ductal arch view: suboptimal SVC: normal IVC: normal 3-vessel view: Appears normal 0-hunwgx-zmpvpeu view: Appears normal Cardiac axis: Normal Rt lung: Appears normal Lt lung: normal Diaphragm: Appears normal Diaphragm: Intact Cord insertion: Appears normal Stomach: Appears normal Kidneys: suboptimal Bladder: Appears normal Abdomen Rt kidney: poorly seen Lt kidney: poorly seen Liver: normal Liver: homogeneous echotexture Small bowel: normal Large bowel: normal Cervical spine: suboptimal Thoracic spine: suboptimal Lumbar spine: suboptimal Sacral spine: suboptimal Arms: Appears normal Legs: Appears normal Rt upper arm: Appears normal Rt forearm: Appears normal Rt hand: Appears normal Rt fingers: suboptimal Lt upper arm: Appears normal Lt forearm: Appears normal Lt hand: Appears normal Lt fingers: suboptimal Rt upper leg: Appears normal Rt lower leg: Appears normal Rt foot: visualized Lt upper leg: Appears normal Lt lower leg: Appears normal Lt foot: visualized Gender: male Wants to know gender: yes Echocardiogram 2D Echo (Qualitatively) 4-chamber view: Appears normal LVOT view: Appears normal RVOT view: Appears normal 3-vessel view: Appears normal 5-ljgvbz-cfrjwdf view: Appears normal Aortic arch view: Appears normal Ductal arch view: suboptimal SVC: normal IVC: normal Cardiac axis: Normal Venous-atrial connections: normal size and morphology AV connections: normal alignment VA connections: normal size and morphology Pulmonary veins: normal size and morphology Right atrium: normal size and morphology Left atrium: normal size and morphology Atrial septum: normal size and morphology Foramen ovale: normal (in the central third/half, flap valve in left atrium) Right ventricle: normal size and morphology Left ventricle: normal size and morphology Ventricular septum: ventricular septum intact (apex to crux) Tricuspid valve: normal size and morphology Mitral valve: normal size and morphology Cross-over gr. arteries: anterior great artery (confirmed to be the pulmonary artery by its branching) which crosses the course of the proximal aorta, indicative of normal relationship of the great arteries Main PA: the main pulmonary artery can be seen bifurcating into the ductus arteriosus and the right pulmonary artery B and M-Mode Measurements Thoracic circ 252.1 mm 86% [place] Thoracic area 50.5 cm ThC / AC 0.92 Cardiac axis 49 Cardiac circ 131.2 mm Cardiac area 13.6 cm CC / ThC 0.52 CA / Do 0.27 RA length diast 13.09 mm RA width diast 13.95 mm RV width diast 12.65 mm 22% Zapata LA length diast 12.4 mm LA width diast 12.6 mm LV width diast 11.71 mm 16% Zapata IV Septum diast 2.55 mm 8% Zapata RV inlet 17.05 mm RVOT diam 8.70 mm RVOT area 59.0 mm LV inlet 24.63 mm LVOT diam 5.5 mm LVOT area 24.0 mm PA main 7.87 mm Rt PA branch 5.18 mm >99% Sharath Lt PA branch 4.70 mm 94% Sharath Ao asc 5.03 mm Ao isthmus 4.6 mm 8% Sharath Ao desc 5.08 mm McGoon Index mod. 1.9 PA main / Ao asc 1.56 IVC 3.39 mm SVC 4.41 mm RV width diast Zscore (FL) -0.40 RV width diast Zscore (BPD) -0.37 RV width diast Zscore (GA) -0.32 RV width diast Zscore by: Charles LV width diast Zscore (FL) -0.65 LV width diast Zscore (BPD) -0.41 LV width diast Zscore (GA) -0.39 LV width diast Zscore by: Charles RV inlet Zscore (FL) -2.37 RV inlet Zscore (BPD) -2.06 RV inlet Zscore (GA) -2.04 RV inlet Zscore by: Charles LV inlet Zscore (FL) -0.36 LV inlet Zscore (BPD) -0.22 LV inlet Zscore (GA) -0.09 LV inlet Zscore by: Charles RV area Zscore by: Charles LV area Zscore by: Charles TV annulus diast Zscore by: Charles MV annulus diast Zscore by: Charles PV annulus syst Zscore by: Charles AoV annulus syst Z-score by: Charles PA main Zscore (FL) 0.51 PA main Zscore (BPD) 0.58 PA main Zscore (GA) 0.67 PA main Zscore by: Charles Ductus arteriosus Zscore by: Charles Rt PA branch Zscore (FL) 2.03 Rt PA branch Zscore (BPD) 2.04 Rt PA branch Zscore (GA) 2.08 Rt PA branch Zscore by: Charles Lt PA branch Zscore (FL) 1.69 Lt PA branch Zscore (BPD) 1.77 Lt PA branch Zscore (GA) 1.82 Lt PA branch Zscore by: Charles Ao asc Zscore (FL) -1.65 Ao asc Zscore (BPD) -1.62 Ao asc Zscore (GA) -1.37 Ao asc Zscore by: Charles Ao isthmus Zscore (FL) 1.75 Ao isthmus Zscore (BPD) 1.09 Ao isthmus Zscore (GA) 1.60 Ao isthmus Zscore (EFW) 2.25 Ao isthmus Zscore by: Luis Ao desc Zscore (FL) -0.39 Ao desc Zscore (BPD) -0.28 Ao desc Zscore (GA) -0.31 Ao desc Zscore by: Charles IVC Zscore (FL) -0.66 IVC Zscore (BPD) -0.69 IVC Zscore (GA) -0.61 IVC Zscore by: Charles Intracardial Spectral Doppler TV E-wave 30.72 cm/s 1% Hecher TV A-wave 49.66 cm/s 10% Hecher TV E / A 0.62 4% Hecher MV E-wave 30.72 cm/s 11% Hecher MV A-wave 43.94 cm/s 16% Hecher MV E / A 0.70 40% Hecher Speckle Tracking Device/Procedure: Transabdominal ultrasound examination Biophysical Profile 2: breathing movements 2: Gross body movements 2: tone 2: Amniotic fluid volume 8 Biophysical profile score Maternal Structures Uterus / Cervix Cervix: Visualized Approach: Transabdominal Ovaries / Tubes / Adnexa Rt ovary: Not visualized Lt ovary: Not visualized Consultation / Office Visit Office note to follow Impression Today's exam reveals a SIUP in cephalic presentation with biometry consistent with dates. Limited anatomic survey appears normal. Normal 4-chamber cardiac view appears normal. Normal right and left ventricular outflow tracts. Normal aortic arch views, DA is suboptimally visualized. The foramen ovale is patent. The cardiac axis is normal. There is no evidence of a arrhythmia. There is no evidence of a ventricular septal defect by color-flow Doppler. No pleural or pericardial effusion. See detailed echocardiogram parameters as above. The CHAPO and BPP are normal. Recommendation Follow-up as clinically indicated. Coding ======= Description: 88126-18 Detailed Ultrasound Description: 86430-03 Echo 2D, heart - initial Description: 14445-96 Doppler echo color flow Description: 33780-32 BPP without NST Tamale Machine Feeder: Jessi Rose RDMS Physician: Janes Guo MD, FACOG Electronically signed by: Janes Guo MD, FACOG at: 11:09 Procedure Note Janes Guo MD - 05/12/2025 PAT NAME: CHAITANYA TRIMBLE MED REC#: [id number] DA: 1990 PAT GEND: F PAT TYPE: O EXAM ZECHARIAH: [id number] REF PHYS HEATHER MANDUJANO Comparison Studies There are no relevant prior studies to which this study is beingcompared Patient Status Outpatient Indication ======== Ammon-Savage Syndrome, hx PTD, hx uterine rupture, obesity History ====== General History Whdwsn177 cm Height (ft)5 ft Height (in)5 in Other:BMI 29.4 Maternal Assessment Hywkrb752 cm Height (ft)5 ft Height (in)5 in Kxcvtg038 kg Weight (lb)239 lb BMI39.82 kg/m Method ======= Transabdominal ultrasound examination ========= James . Number of fetuses: 1 Dating ====== Method of dating:based on stated ANIL GA by prior veevtbblwo77 w + 2 d ANIL by prior assessment:07/05/2025 Ultrasound examination on:05/12/2025 GA by U/S based upon:AC, BPD, Femur, HC GA by U/S33 w + 1 d ANIL by U/S:06/29/2025 Assigned:based on stated ANIL, selected on 05/12/2025 Assigned GA32 w + 2 d Assigned ANIL:07/05/2025 tbpabl356 d Biometry Standard BPD85.1 mm 34w 2d 91% Hadlock VYE508.8 mm 34w 3d 89% Aniyah HC303.8 mm 33w 5d 53% Hadlock Cerebellum tr40.7 mm 32w 4d 36% Hill AC274.4 mm 31w 4d 27% Hadlock Femur63.4 mm 32w 5d 51% Hadlock Dlmovqj20.6 mm 32w 2d 55% Aniyah HC / AC1.11 EFW1,957 g 32w 0d 42% Hadlock EFW (lb)4 lb EFW (oz)5 oz EFW by:Hadlock (AST-AT-TM-FL) Extended Tibia54.1 mm 31w 6d 47% Aniyah Ekykxh82.4 mm 32w 1d 49% Aniyah Esajjv01.1 mm 32w 1d 49% Aniyah Ulna52.4 mm 33w 1d 52% Aniyah Cav. septi pel. tr6.3 mm Vp8.3 mm CM9.3 mm 92% Nicolaides Nasal bone10.7 mm Head / Face / Neck Cephalic index0.81 65% Nicolaides Thorax / Lungs Thoracic ijjh024.1 mm 86% [place] Thoracic area50.5 cm ThC / AC0.92 Heart / Great Vessels Cardiac axis49 Cardiac cyvn342.2 mm Cardiac area13.6 cm CC / ThC0.52 CA / ThA0.27 PA main7.87 mm Rt PA branch5.18 mm >99% Sharath Lt PA branch4.70 mm 94% Sharath Ao asc5.03 mm Ao isthmus4.6 mm 8% Sharath Ao desc5.08 mm McGoon Index mod.1.9 PA main / Ao asc1.56 IVC3.39 mm SVC4.41 mm Extremities / Bony Struc FL / BPD0.75 FL / HC0.21 FL / AC0.23 Other Structures YVG857 bpm General Evaluation Cardiac activity present. FHR 157 bpm. movements present. Presentation cephalic. Placenta Placental site: anterior. Umbilical cord Cord vessels: 3 vessel cord. Insertion site: placentalinsertion: normal. Amniotic fluid Amount of AF: normal. MVP 4.8 cm. CHAPO 14.6 cm. Q1 4.8 cm,Q2 3.7 cm, Q3 2.9 cm, Q4 3.3 cm. Anatomy Cranium:Appears normal Midline falx:Appears normal Cavum septi pellucidi:Appears normal Cerebellum:Appears normal Cisterna magna:Appears normal Head / Neck Rt lateral ventricle:Appears normal Lt lateral ventricle:Appears normal Rt choroid plexus:Appears normal Lt choroid plexus:Appears normal Vermis:Appears normal Neck:Appears normal Lips:Appear normal Profile:Appears normal Nose:Appears normal Face Nose:Nasal bone present Palate:visualized Maxilla:visualized Mandible:visualized Orbits:Appears normal Lens:Normal 4-chamber view:Appears normal RVOT view:Appears normal LVOT view:Appears normal Heart / Thorax Aortic arch view:Appears normal Ductal arch view:suboptimal SVC:normal IVC:normal 3-vessel view:Appears normal 3-ohnewa-nsguakw view:Appears normal Cardiac axis:Normal Rt lung:Appears normal Lt lung:normal Diaphragm:Appears normal Diaphragm:Intact Cord insertion:Appears normal Stomach:Appears normal Kidneys:suboptimal Bladder:Appears normal Abdomen Rt kidney:poorly seen Lt kidney:poorly seen Liver:normal Liver:homogeneous echotexture Small bowel:normal Large bowel:normal Cervical spine:suboptimal Thoracic spine:suboptimal Lumbar spine:suboptimal Sacral spine:suboptimal Arms:Appears normal Legs:Appears normal Rt upper arm:Appears normal Rt forearm:Appears normal Rt hand:Appears normal Rt fingers:suboptimal Lt upper arm:Appears normal Lt forearm:Appears normal Lt hand:Appears normal Lt fingers:suboptimal Rt upper leg:Appears normal Rt lower leg:Appears normal Rt foot:visualized Lt upper leg:Appears normal Lt lower leg:Appears normal Lt foot:visualized Gender:male Wants to know gender:yes Echocardiogram 2D Echo (Qualitatively) 4-chamber view:Appears normal LVOT view:Appears normal RVOT view:Appears normal 3-vessel view:Appears normal 6-gofxsb-zrszras view:Appears normal Aortic arch view:Appears normal Ductal arch view:suboptimal SVC:normal IVC:normal Cardiac axis:Normal Venous-atrial connections:normal size and morphology AV connections:normal alignment VA connections:normal size and morphology Pulmonary veins:normal size and morphology Right atrium:normal size and morphology Left atrium:normal size and morphology Atrial septum:normal size and morphology Foramen ovale:normal (in the central third/half, flap valve in leftatrium) Right ventricle:normal size and morphology Left ventricle:normal size and morphology Ventricular septum:ventricular septum intact (apex to crux) Tricuspid valve:normal size and morphology Mitral valve:normal size and morphology Cross-over gr. arteries:anterior great artery (confirmed to be thepulmonary artery by its branching) which crosses the course of theproximal aorta, indicative of normal relationship of the great arteries Main PA:the main pulmonary artery can be seen bifurcating into the ductusarteriosus and the right pulmonary artery B and M-Mode Measurements Thoracic wrjf221.1 mm 86% [place] Thoracic area50.5 cm ThC / AC0.92 Cardiac axis49 Cardiac qvwz858.2 mm Cardiac area13.6 cm CC / ThC0.52 CA / ThA0.27 RA length diast13.09 mm RA width diast13.95 mm RV width diast12.65 mm 22% Zapata LA length diast12.4 mm LA width diast12.6 mm LV width diast11.71 mm 16% Zapata IV Septum diast2.55 mm 8% Zapata RV inlet17.05 mm RVOT diam8.70 mm RVOT area59.0 mm LV inlet24.63 mm LVOT diam5.5 mm LVOT area24.0 mm PA main7.87 mm Rt PA branch5.18 mm >99% Sharath Lt PA branch4.70 mm 94% Sharath Ao asc5.03 mm Ao isthmus4.6 mm 8% Sharath Ao desc5.08 mm McGoon Index mod.1.9 PA main / Ao asc1.56 IVC3.39 mm SVC4.41 mm RV width diast Zscore (FL)-0.40 RV width diast Zscore (BPD)-0.37 RV width diast Zscore (GA)-0.32 RV width diast Zscore by:Charles LV width diast Zscore (FL)-0.65 LV width diast Zscore (BPD)-0.41 LV width diast Zscore (GA)-0.39 LV width diast Zscore by:Charles RV inlet Zscore (FL)-2.37 RV inlet Zscore (BPD)-2.06 RV inlet Zscore (GA)-2.04 RV inlet Zscore by:Charles LV inlet Zscore (FL)-0.36 LV inlet Zscore (BPD)-0.22 LV inlet Zscore (GA)-0.09 LV inlet Zscore by:Charles RV area Zscore by:Charles LV area Zscore by:Charles TV annulus diast Zscore by:Charles MV annulus diast Zscore by:Charles PV annulus syst Zscore by:Charles AoV annulus syst Z-score by:Charles PA main Zscore (FL)0.51 PA main Zscore (BPD)0.58 PA main Zscore (GA)0.67 PA main Zscore by:Charles Ductus arteriosus Zscore by:Charles Rt PA branch Zscore (FL)2.03 Rt PA branch Zscore (BPD)2.04 Rt PA branch Zscore (GA)2.08 Rt PA branch Zscore by:Charles Lt PA branch Zscore (FL)1.69 Lt PA branch Zscore (BPD)1.77 Lt PA branch Zscore (GA)1.82 Lt PA branch Zscore by:Charles Ao asc Zscore (FL)-1.65 Ao asc Zscore (BPD)-1.62 Ao asc Zscore (GA)-1.37 Ao asc Zscore by:Charles Ao isthmus Zscore (FL)1.75 Ao isthmus Zscore (BPD)1.09 Ao isthmus Zscore (GA)1.60 Ao isthmus Zscore (EFW)2.25 Ao isthmus Zscore by:Luis Ao desc Zscore (FL)-0.39 Ao desc Zscore (BPD)-0.28 Ao desc Zscore (GA)-0.31 Ao desc Zscore by:Charles IVC Zscore (FL)-0.66 IVC Zscore (BPD)-0.69 IVC Zscore (GA)-0.61 IVC Zscore by:Charles Intracardial Spectral Doppler TV E-wave30.72 cm/s 1% Hecher TV A-wave49.66 cm/s 10% Hecher TV E / A0.62 4% Hecher MV E-wave30.72 cm/s 11% Hecher MV A-wave43.94 cm/s 16% Hecher MV E / A0.70 40% Hecher Speckle Tracking Device/Procedure:Transabdominal ultrasound examination Biophysical Profile 2: breathing movements 2: Gross body movements 2: tone 2: Amniotic fluid volume 8/8 Biophysical profile score Maternal Structures Uterus / Cervix Cervix:Visualized Approach:Transabdominal Ovaries / Tubes / Adnexa Rt ovary:Not visualized Lt ovary:Not visualized Consultation / Office Visit Office note to follow Impression Today's exam reveals a SIUP in cephalic presentation with biometryconsistent with dates. Limited anatomic survey appears normal.Normal 4-chamber cardiac view appears normal. Normal right and left ventricular outflow tracts.Normal aortic arch views, DA is suboptimally visualized. The foramen ovaleis patent. The cardiac axis is normal. There is no evidence of a arrhythmia. There is noevidence of a ventricular septal defect by color-flow Doppler. No pleuralor pericardial effusion. See detailed echocardiogram parameters as above. The CHAPO and BPP arenormal. Recommendation Follow-up as clinically indicated. 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
--- OUTSIDE RECORDS SUMMARY | 2025-05-12 09:30 | XMS_ITS | Encounter Summary ---
Author Organization [facility] Address [address] [place] [address] Care Team Providers Care Rn Ante Partum Name Role Phone Porsha Mullins Primary Care Provider [phone] Reason for Visit * Reason Comments EIF; Hx uterine rupture with corneal res ection; Hx PTD at 3 Encounter Details Date Type Department Care Team (Late st Contact Info) Description 05/12/2025 9:30 AM EDT Office Visit [facility] MATERNAL MEDICINE [address] [place] [phone] Janes Guo MD [address] [place] [address] History of DVT of lower extremity (Primary Dx); Ammon-Savage syndrome; Rupture of uterus, subsequent encounter Social History Tobacco Use Types Packs/Day Years [...] AM EDT documented as of this encounter Last Filed Vital Signs Vital Sign Reading Time Taken Comments Blood Pressure 115/69 05/12/2025 10:00 AM EDT Pulse - - Temperature - - Respiratory Rate - - Oxygen Saturation - - Inhaled Oxygen Concentration - - Weight 109 kg (239 lb 6.4 oz) 05/12/2025 10:00 A M EDT Height - - Body Mass Index 39.84 11/04/2023 7:31 PM EDT documented in this encounter Progress Notes * Janes Guo MD - 05/12/2025 10:40 AM EDTAssociated Problem(s): 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 We discussed that this is an autosomal dominant condition meaning 50% of her offspring may also have the condition. This condition can be associated with imperforate anus, abnormal ears, thumb malformations. Other associated findings could be hearingloss, cardiac defects, general malformations, intellectual disability, renal malformations. We discussed that given her advanced gestation diagnostic testing during would not be recommendedthough would recommend follow-up. Given the potential for cardiac abnormalities a echo was performed today. * Janes Guo MD - 05/12/2025 10:22 AM EDTAssociated Problem(s): Uterine rupture Patient with a history of a corneal ectopic and uterine rupture requiring corneal resection and right sided salpingectomy. We discussed that given likely extensive dissection we would recommend delivery at 36 weeks. * Janes Guo MD - 05/12/2025 10:19 AM EDTAssociated Problem(s): History of DVT of lower extremity In general, women with a venous thromboembolism in a prior or an event which is estrogen-related are offered thromboprophylaxis during and . As Coumadin crosses the placenta and has been associated with congenital abnormalities, thromboprophylaxis with unfractionated heparin or low molecular weight heparin is the preferred method of thromboprophylaxis during . In terms of Lovenox therapy, she should have her platelet count checked initially 5-7 days from the start of therapy and if normal, repeated at least once a month to rule out heparin-induced thrombocytopenia. In addition, she should take at least 2000 mg of calcium daily because of the risk of hep manuel-induced osteoporosis. I have explained the importance of this to the patient. The Lovenox should be discontinued at least 24 hours prior to any surgical procedure (including amniocentesis) and the patient converted to unfractionated heparin. The unfractionated heparin should be discontinued 8-12 hours before surgical procedures or delivery and a PTT checked to be sure that it is normal prior to epidural or spinal insertion for surgery. I reiterated the importance of anticoagulation and suggested that she have this started within six hours after a vaginal delivery and 12 hours after a section or per your anesthesia service guidelines. I recommend SCD pulse stockings or ZACKERY hose while she is in the hospital. I also recommended that she take at least an 81 mg aspirin tablet daily after this and receive anticoagulation for 12 weeks based on the recent study by Scar et al ([facility] September 29, 2013). She should also be followed long-term by a sorter packer given her history. * Adrienne Linda RN - 05/12/2025 9:30 AM EDT NIPT negative. F/U with OB provider 05/17/25. Pt reports +FM. Denies cramping, leaking of fluid, vaginal bleeding. Reports occasional contractions. * Janes Guo MD - 05/12/2025 9:30 AM EDT Images from the original note were not included. Maternal/ Medicine Consult Note Date: 05/12/2025 Name: Shira Hall : 1990 Referring Provider: Heather Mandujano DO Chief Complaint EIF; Hx uterine rupture with corneal resection; Hx PTD at 3 Subjective History of Present Illness: Shira Hall is a 34 y.o. 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 Past Surgical History: Procedure Laterality Date CHOLECYSTECTOMY HAND SURGERY Bilateral extra digits removed SALPINGECTOMY Right 2020 With corneal resection of uterus OB History 5 Para 2 Term 1 1 AB 2 Living 2 SAB 0 IAB 0 Ectopic 2 Molar 0 Multiple 0 Live Births 2 Obstetric Comments Bicornate uterus Preg #1: FOB #1-DVT Preg #2: FOB #2-PROM with PTD at 36 weeks Preg #3: FOB #3-Ectopic; tube and uterine rupture; Right corneal resection and right salpingectomy Preg #4: FOB #3-Ectopic in left tube; terminated with chem o medication Preg #5: FOB #3 Current Outpatient Medications: enoxaparin (LOVENOX) 40 MG/0.4ML solution syringe, Inject 0.4 mL under the skin into the appropriate area as directed Daily., Disp: , Rfl: FEROSUL 325 (65 Fe) MG tablet, Take by mouth Daily., Disp: , Rfl: hydrocortisone 1 % cream, Apply 1 Application topically to the appropriate area as directed Daily As Needed for Irritation or Rash., Disp: , Rfl: NIFEdipine (PROCARDIA) 10 MG capsule, Take 2 capsules by mouth Every 6 (Six) Hours. For contractions, Disp: , Rfl: nitrofurantoin, macrocrystal-monohydrate, (MACROBID) 100 MG capsule, Take 1 capsule by mouth 2 (Two) Times a Day. X 7 days, Disp: , Rfl: ondansetron ODT (ZOFRAN-ODT) 4 MG disintegrating tablet, Take 1 tablet by mouth Every 8 (Eight) Hours., Disp: , Rfl: pantoprazole (PROTONIX) 40 MG EC tablet, Take 1 tablet by mouth Daily., Disp: , Rfl: ZG-Nom-KF-Stephenson-3 ( GUMMIES/DHA & FA) 0.4-32.5 MG chewable tablet, Chew., Disp: , Rfl: valACYclovir (VALTREX) 500 MG tablet, Take by mouth Daily., Disp: , Rfl: promethazine (PHENERGAN) 25 MG tablet, Take 25 mg by mouth Every 6 (Six) Hours As Needed for Nauseaor Vomiting. (Patient not taking: Reported on 05/12/2025), Disp: , Rfl: Objective Vital Signs BP 115/69 Wt 109 kg (239 lb 6.4 oz) LMP 09/28/2024 Estimated body mass index is 39.84 kg/m?? as calculated from the following: Height as of 11/04/23: 165.1 cm (65 ). Weight as of this encounter: 109 kg (239 lb 6.4 oz). Ultrasound Impression: See Viewpoint Assessment and Plan Shira Hall is a 34 y.o. 32w2d who presents today foruterine rupture, history of DVT, Ammon Savage syndrome Diagnoses and all orders for this visit: 1. History of DVT of lower extremity (Primary) Assessment & Plan: In general, women with a venous thromboembolism in a prior or an event which is estrogen-related are offered thromboprophylaxis during and . As Coumadin crosses the placenta and has been associated with congenital abnormalities, thromboprophylaxis with unfractionated heparin or low molecular weight heparin is the preferred method of thromboprophylaxis during . In terms of Lovenox therapy, she should have her platelet count checked initially 5-7 days from the start of therapy and if normal, repeated at least once a month to rule out heparin-induced thrombocytopenia. In addition, she should take at least 2000 mg of calcium daily because of the risk of hep manuel-induced osteoporosis. I have explained the importance of this to the patient. The Lovenox should be discontinued at least 24 hours prior to any surgical procedure (including amniocentesis) and the patient converted to unfractionated heparin. The unfractionated heparin should be discontinued 8-12 hours before surgical procedures or delivery and a PTT checked to be sure that it is normal prior to epidural or spinal insertion for surgery. I reiterated the importance of anticoagulation and suggested that she have this started within six hours after a vaginal delivery and 12 hours after a section or per your anesthesia service guidelines. I recommend SCD pulse stockings or ZACKERY hose while she is in the hospital. I also recommended that she take at least an 81 mg aspirin tablet daily after this and receive anticoagulation for 12 weeks based on the recent study by Scar et al ([place] September 29, 2013). She should also be followed long-term by a sorter packer given her history. 2. Ammon-Savage syndrome Assessment & Plan: Patient with a history of Ammno Savage syndrome. We discussed that this is an autosomal dominant condition meaning 50% of her offspring may also have the condition. This condition can be associated with imperforate anus, abnormal ears, thumb malformations. Other associated findings could be hearingloss, cardiac defects, general malformations, intellectual disability, renal malformations. We discussed that given her advanced gestation diagnostic testing during would not be recommendedthough would recommend follow-up. Given the potential for cardiac abnormalities a echo was performed today. 3. Rupture of uterus, subsequent encounter Assessment & Plan: Patient with a history of a corneal ectopic and uterine rupture requiring corneal resection and right sided salpingectomy. We discussed that given likely extensive dissection we would recommend delivery at 36 weeks. Follow Up No follow-ups on file. I spent 30 minutes caring for the patient on the day of service. This included: obtaining or reviewing a separately obtained medical history, reviewing patient records, performing a medically appropriate exam and/or evaluation, counseling or educating the patient/family/caregiver, ordering medications, labs, and/or procedures and documenting such in the medical record. This does not include time spent on review and interpretation of other tests such as ultrasound or the performance of other procedures such as amniocentesis or CVS. Janes Guo MD, FACOG Maternal Medicine, [facility] documented in this encounter Plan of Treatment Not on file documented as of this encounter Visit Diagnoses Diagnosis History of DVT of lower extremity- Primary Ammon-Savage syndrome Rupture of uterus, subsequent encounter documented in this encounter Care Teams Rn Ante Partum Relationship Specialty Start Date End Date Porsha Mullins PA PCP - General Physician Wool Merchant 11/04/23 documented as of this encounter
--- NOTE | 2025-05-17 10:15 | US_ITS ---
PROCEDURE: US OB BIOPHYSICAL PROFILE CLINICAL INDICATION: BPP COMPARISON: US US OB <= 14 WEEKS FETUS from 11/03/2024 US US OB <= 14 WEEKS FETUS from 11/11/2024 US US OB /MATERNAL DETAIL from 02/20/2025 US OB FOLLOW UP from 03/20/2025 US OB FOLLOW UP from 04/20/2025 FINDINGS: Transabdominal sonographic images of the uterus were obtained. From her established due date she is 33weeks 0 days. The following parameters are obtained: Viable Fetus in the cephalic presentation with an anterior placenta grade 2. Amniotic fluid index: 10.35cm, MVP 3.56 cm Qualitative AFV:2 Breathing movements: 2 Gross Body Movements: 2 Tone: 2 Biophysical profile score: 8 No obvious anomalies evident.Kidneys, stomach, bladder, three-vessel cord appear normal. IMPRESSION: 1. Viable fetus in the cephalic presentation with an anterior placenta grade 2. 2. The fluid is within normal limits with an amniotic fluid index 10.35 cm, MVP 3.56 cm. 3. Biophysical profile is 8/8 with good breathing movement and movement seen. 4. Limited anatomical scan appears normal. Dictated by: Danny Reynolds MD 05/17/2025 17:07 Danny Reynolds MD in OV 05/17/2025 17:07
--- OUTSIDE RECORDS SUMMARY | 2025-05-17 10:51 | XMS_ITS | Clinical Summary ---
Author Organization [facility] Address [address] [place] [address] Care Team Providers Care Offshore Diver Name Role Phone Porsha Mullins Primary Care Provider [phone] Allergies Active Allergy Reactions Criticality Noted Date Comments Amoxicillin Rash Low 11/04/2023 Sulfa Antibiotics Swelling High 09/15/2019 Wound Dressing Adhesive Dermatitis 05/12/2025 Medications promethazine (PHENERGAN) 25 MG tablet Take 25 mg by mouth Every 6 (Six) Hours As Needed for Nausea or Vomiting. Active RJ-Jcj-GF-[place]-3 ( GUMMIES/DHA & FA) 0.4-32.5 MG chewable tablet Chew. Acti ve enoxaparin (LOVENOX) 40 MG/0.4ML solution syringe Inject 0.4 mL under the skin into the appropriate area as directed Daily. Active valACYclovir (VALTREX) 500 MG tablet Take by mouth Daily. 01/02/20 20 Active FEROSUL 325 (65 Fe) MG tablet Take by mouth Daily. 11/09/19 20 Active NIFEdipine (PROCARDIA) 10 MG capsule Take 2 capsules by mouth Every 6 (Six) Hours. For contractions 02/02/20 20 Active hydrocortisone 1 % cream Apply 1 Application topically to the appropriate area as directed Daily As Needed for Irritation or Rash. 04/27/20 25 Active nitrofurantoin, macrocrystal-monoh ydrate, (MACROBID) 100 MG capsule Take 1 capsule by mouth 2 (Two) Times a Day. X 7 days 04/26/20 25 Active ondansetron ODT (ZOFRAN-ODT) 4 MG disintegrating tablet Take 1 tablet by mouth Every 8 (Eight) Hours. Active pantoprazole (PROTONIX) 40 MG EC tablet Take 1 tablet by mouth Daily. 12/23/19 25 Active Active Problems Problem Noted Date Diagnosed Date Uterine rupture 05/12/2025 Assessment & Plan (05/12/2025 10:45 AM EDT): Patient with a history of a corneal ectopic and uterine rupture requiring corneal resection and right sided salpingectomy. We discussed that given likely extensive dissection we would recommend delivery at 36 weeks. Ammon-Savage syndrome 02/02/2020 Assessment & Plan (05/12/2025 10:40 AM EDT): Patient with a history of Ammon Savage syndrome. We discussed that this is an autosomal dominant condition meaning 50% of her offspring may also have the condition. This condition can be associated with imperforate anus, abnormal ears, thumb malformations. Other associated findings could be hearing loss, cardiac defects, general malformations, intellectual disability, renal malformations. We discussed that given her advanced gestation diagnostic testing during would not be recommended though would recommend follow-up. Given the potential for cardiac abnormalities a echo was performed today. Teratogen exposure in current 10/27/19 20 Family history of genetic disease 10/27/2019 Family history of congenital anomalies 0 History of DVT of lower extremity 09/15/2019 Assessment & Plan (05/12/2025 10:19 AM EDT): In general, women with a venous thromboembolism [...] calcium daily because of the risk of heparin-induced osteoporosis. I have explained the importance of [...] the recent study by Scar et al ([facility] September 29, 2013). She should also be followed long-term by a factory maintenance manager given her history. 09/15/2019 Estimated Date of Delivery Comme nts Yes 07/05/2025 Date entered lucy or to episode creation Encounters Date Type Department Care Team Description 05/12/2025 9:30 AM EDT Office Visit [facility] MEDICAL [facility] MATERNAL MEDICINE [address] [facility] [address] [place] [address] Janes Guo MD History of DVT of lower extremity (Primary Dx); Ammon-Savage syndrome; Rupture of uterus, subsequent encounter 05/12/2025 9:21 AM EDT - 05/12/2025 11:59 PM EDT Hospital Encounter [facility] [address] [place] [address] Heather Mandujano DO Echogenic intracardiac focus of fetus on ultrasound; Family history of congenital anomalies; History of DVT of lower extremity; Ammon-Savage syndrome; , unspecified gestational age; History of delivery, currently Discharge Disposition: Home or Self Care 05/12/2025 Travel from Last 3 Months Family History Medical History Relation Name Comments Diabetes Father Heart disease Father Hypertension Father Relation Name Status Comments Father Alive Mother Social History Tobacco Use Types Packs/Day Years [...] Orientation Straight 05/12/2025 8: 36 AM EDT Last Filed Vital Signs Vital Sign Reading Time Taken Comments Blood Pressure 115/69 05/12/2025 10:00 AM EDT Pulse 73 11/04/2023 7:31 PM EDT Temperature 37.1 C (98.7 F) 11/04/2023 7:31 PM EDT Respiratory Rate 18 11/04/2023 7:31 PM EDT Oxygen Saturation 99% 11/04/2023 7:31 PM EDT Inhaled Oxygen Concentration - - Weight 109 kg (239 lb 6.4 oz) 05/12/2025 10:00 A M EDT Height 165.1 cm (5' 5 ) 11/04/2023 7:31 PM EDT Body Mass Index 39.84 11/04/2023 7:31 PM EDT Plan of Treatment Health Maintenance Due Date Last Done Comments Annual Gynecologic Pelvic an d Breast Exam 1990 PAP SMEAR 2013 ANNUAL PHYSICAL 09/15/2019 HEPATITIS C SCREENING 09/15/2019 INFLUENZA VACCINE 03/17/2025 RSV Vaccine - Adults (1 - Risk 1-dose series) 05/10/2025 TDAP/TD VACCINES (3 - Td or Tdap) 04/26/2035 04/26/2025, 03/31/2005 Pneumococcal Vaccine 0-49 Aged Out No longer eligible based on patient's age to complete this topic Procedures Procedure Name Priority Date/Time Associated Diagnosis Comments [facility] Routine 05/12/2025 11:02 AM EDT Echogenic intracardiac focus of fetus on ultrasound Family history of congenital anomalies History of DVT of lower extremity Ammon-Savage syndrome , unspecified gestational age History of delivery, currently from Last 3 Months Results * [facility] (05/12/2025 11:02 AM EDT) Anatomical Region Laterality Modality Ultrasound 05/12/2025 10:0 9 AM EDT Narrative 05/12/2025 11:09 AM EDT PAT NAME: CHAITANYA TRIMBLE MED REC#: [id number] DA: 1990 PAT GEND: F PAT TYPE: O EXAM ZECHARIAH: [id number] REF PHYS HEATHER MANDUJANO Comparison Studies There [...] EFW (oz) 5 oz EFW by: Hadlock (SUN-[id number]-[id number]-FL) Extended Tibia 54.1 mm 31w 6d 47% Aniyah Fibula 52.4 mm 32w 1d 49% Aniyah Radius 45.1 mm 32w 1d 49% Aniyah Ulna 52.4 mm 33w 1d 52% Aniyah Cav. septi pel. tr 6.3 mm Gse Mechanic 8.3 mm CM 9.3 mm 92% Nicolaides [...] normal IVC: normal 3-vessel view: Appears normal 7-sqghaz-vxbgpdi view: Appears normal Cardiac axis: Normal Rt [...] view: Appears normal 3-vessel view: Appears normal 9-hufkuv-uespevm view: Appears normal Aortic arch view: Appears [...] Follow-up as clinically indicated. Coding ======= Description: 24544-55 Detailed Ultrasound Description: 16375-02 Echo 2D, heart - initial Description: 35215-09 Doppler echo color flow Description: 11133-04 BPP without NST Manager Human Resources: Jessi Rose RDMS Physician: Janes Guo MD, FACOG Electronically signed by: Janes Guo MD, FACOG at: 11:09 Procedure Note Janes Guo MD - 05/12/2025 PAT NAME: CHAITANYA TRIMBLE MED REC#: [id number] DA: 1990 PAT GEND: F PAT TYPE: O EXAM ZECHARIAH: [id number] REF PHYS HEATHER MANDUJANO Comparison Studies There are no relevant prior studies to which this study is beingcompared Patient Status Outpatient Indication ======== Ammon-Savage Syndrome, hx PTD, hx uterine rupture, obesity History ====== General History Pfemwx776 cm Height (ft)5 ft Height (in)5 in Other:BMI 29.4 Maternal Assessment Ubvinq901 cm Height (ft)5 ft Height (in)5 in Zgucaa512 kg Weight (lb)239 lb BMI39.82 kg/m Method ======= Transabdominal ultrasound examination ========= James . Number of fetuses: 1 Dating ====== Method of dating:based on stated ANIL GA by prior cikpppoknv83 w + 2 d ANIL by prior assessment:07/05/2025 Ultrasound examination on:05/12/2025 GA by U/S based upon:AC, BPD, Femur, HC GA by U/S33 w + 1 d ANIL by U/S:06/29/2025 Assigned:based on stated ANIL, selected on 05/12/2025 Assigned GA32 w + 2 d Assigned ANIL:07/05/2025 ujogla726 d Biometry Standard BPD85.1 mm 34w 2d 91% Hadlock MRW696.8 mm 34w 3d 89% Aniyah HC303.8 mm 33w 5d 53% Hadlock Cerebellum tr40.7 mm 32w 4d 36% Hill AC274.4 mm 31w 4d 27% Hadlock Femur63.4 mm 32w 5d 51% Hadlock Hgzpykw70.6 mm 32w 2d 55% Aniyah HC / AC1.11 EFW1,957 g 32w 0d 42% Hadlock EFW (lb)4 lb EFW (oz)5 oz EFW by:Hadlock (LCM-JZ-YF-FL) Extended Tibia54.1 mm 31w 6d 47% Aniyah Nfoopa73.4 mm 32w 1d 49% Aniyah Aaayjk48.1 mm 32w 1d 49% Aniyah Ulna52.4 mm 33w 1d 52% Aniyah Cav. septi pel. tr6.3 mm Vp8.3 mm CM9.3 mm 92% Nicolaides Nasal bone10.7 mm Head / Face / Neck Cephalic index0.81 65% Nicolaides Thorax / Lungs Thoracic yafo716.1 mm 86% [place] Thoracic area50.5 cm ThC / AC0.92 Heart / Great Vessels Cardiac axis49 Cardiac aora381.2 mm Cardiac area13.6 cm CC / ThC0.52 CA / ThA0.27 PA main7.87 mm Rt PA branch5.18 mm >99% Sharath Lt PA branch4.70 mm 94% Sharath Ao asc5.03 mm Ao isthmus4.6 mm 8% Sharath Ao desc5.08 mm McGoon Index mod.1.9 PA main / Ao asc1.56 IVC3.39 mm SVC4.41 mm Extremities / Bony Struc FL / BPD0.75 FL / HC0.21 FL / AC0.23 Other Structures GRE588 bpm General Evaluation Cardiac activity present. FHR [...] arch view:suboptimal SVC:normal IVC:normal 3-vessel view:Appears normal 3-olagjd-kebhvvy view:Appears normal Cardiac axis:Normal Rt lung:Appears normal [...] normal RVOT view:Appears normal 3-vessel view:Appears normal 9-jizwnr-jdlmelu view:Appears normal Aortic arch view:Appears normal Ductal [...] pulmonary artery B and M-Mode Measurements Thoracic krgk217.1 mm 86% [place] Thoracic area50.5 cm ThC / AC0.92 Cardiac axis49 Cardiac dfji286.2 mm Cardiac area13.6 cm CC / ThC0.52 [...] movements 2: tone 2: Amniotic fluid volume 03/24 Biophysical profile score Maternal Structures Uterus / [...] Recommendation Follow-up as clinically indicated. Coding ======= Description:15125-86 Detailed Ultrasound Description:43283-77 Echo 2D, heart - initial Description:46778-49 Doppler echo color flow Description:82428-68 BPP without NST Manager Human Resources: Jessi Rose RDMA Physician: Janes Guo MD, FACOG Electronically signed by: Janes Guo MD, FACOG at: 11:09 us Heather Mandujano DO IMG US ORDERABLES Final Result from Last 3 Months Insurance [facility] MEDICAID [facility] [employer] PPO Care Teams Offshore Diver Relationship Specialty Start Date End Date Porsha Mullins PA PCP - General Physician Twister Frame Tender 11/04/23
--- OUTSIDE RECORDS SUMMARY | 2025-05-17 10:51 | XMS_ITS | Encounter Summary ---
Author Organization [facility] Address [address] [place] [address] Care Team Providers Care Straight Tooth Gear Generator Operator Name Role Phone Porsha Mullins Primary Care Provider [phone] Encounter Details Date Type Department Care Team (Latest Contact Info) Description 05/12/2025 Travel Social History Tobacco Use Types Packs/Day Years [...] AM EDT documented as of this encounter Plan of Treatment Not on file documented as of this encounter Visit Diagnoses Not on filedocumented in this encounter Care Teams Straight Tooth Gear Generator Operator Relationship Specialty Start Date End Date Porsha Mullins PA PCP - General Physician Medical Program Specialist 11/04/23 documented as of this encounter
== END 2025-05-17 23:59 | disposition home or self-care (01) ==
LOC: RAD 10:19
PROVIDERS: Visit Provider Obstetrics & Gynecology
DX: O99.213 Obesity complicating pregnancy, third trimester (principal); O09.293 Supervision of pregnancy with other poor reproductive or obstetric history, third trimester; O09.893 Supervision of other high risk pregnancies, third trimester; O34.03 Maternal care for unspecified congenital malformation of uterus, third trimester; E66.9 Obesity, unspecified; Q51.3 Bicornate uterus; Z86.718 Personal history of other venous thrombosis and embolism; Z3A.33 33 weeks gestation of pregnancy
CPT/HCPCS: 76819